=== PATIENT | male | born 1975 | race African-American/Black ===

== ENCOUNTER 2017-07-25 14:16 | Inpatient (IN) | payer MEDICAID ==
[~2017-07-25] VITALS: Ht 182.9 cm; Wt 188.9 kg
[~2017-07-25 14:16] MED LIST: AMLO5TAB16 PO; CYCL-1 PO; EMOL200L TP; HYDR-569 PO; INSU100V36 SQ; INSU100V9 SQ; LACT1CAP26 PO; LEVO500T89 PO; LISI-600 PO; METF500T PO; NITR0.4T51 SL; OMEP20TA23 PO; SIMV10TA2 PO; levoFLOXACIN-Levaquin 750MG/D5 150 ML IV ONE
[2017-07-25 15:04] LABS: BASOPHILS % (AUTO) 0.3 % (0-1); EOSINOPHILS # (AUTO) 0.3 X10'3 (0-0.9); EOSINOPHILS % (AUTO) 1.7 % (0-6); HEMATOCRIT 37.2 % (42.0-52.0); HEMOGLOBIN 11.9 g/dl (14.0-17.9); LYMPHOCYTES # (AUTO) 1.9 X10'3 (1.1-4.8); LYMPHOCYTES % (AUTO) 12.9 % (21-51); MEAN CORPUSCULAR HEMOGLOBIN 25.6 PG (27.0-31.0); MONOCYTES # (AUTO) 0.4 X10'3 (0-0.9); MONOCYTES % (AUTO) 2.4 % (2-12); NEUTROPHILS # (AUTO) 12.2 X10'3 (1.8-7.7); NEUTROPHILS % (AUTO) 82.7 % (42-75); PLATELET COUNT 300 X10'3 (140-440); RED BLOOD COUNT 4.65 X10'6 (4.70-6.10); RED CELL DISTRIBUTION WIDTH 19.2 % (11.5-14.5); WHITE BLOOD COUNT 14.8 X10'3 (4.5-11.0)
[2017-07-25 15:20] LABS: PARTIAL THROMBOPLASTIN TIME 32 SECONDS (22-32)
[2017-07-25 15:21] LABS: ALANINE AMINOTRANSFERASE 31 U/L (12-78); ALBUMIN 3.7 G/DL (3.4-5.0); ALBUMIN/GLOBULIN RATIO 0.7 (1.1-1.5); ALKALINE PHOSPHATASE 94 IU/L (46-116); ANION GAP 12 (8-16); ASPARTATE AMINO TRANSFERASE 14 U/L (10-37); BILIRUBIN,TOTAL 0.6 MG/DL (0.1-1.0); BLOOD UREA NITROGEN 20 MG/DL (7-18); BUN/CREATININE RATIO 13.5 (5.4-32.0); CHLORIDE 99 MMOL/L (99-107); CREATININE 1.48 MG/DL (0.60-1.10); GLUCOSE 186 MG/DL (70-104); POTASSIUM 3.9 MMOL/L (3.5-5.1); SODIUM 141 MMOL/L (135-145); TOTAL CARBON DIOXIDE 29.6 MMOL/L (24-32); TOTAL PROTEIN 9.2 G/DL (6.4-8.2); eGFR 63 ML/MIN
[2017-07-25] MEDS ORDERED: normal saline 1000ML IV soln IVB ONE (15:55)
[2017-07-25] MEDS ORDERED: HYDROcodone/acetaminophen 10/325mg tab PO ONE (16:05)
[2017-07-25] MEDS ORDERED: proCHLORperazine 10 MG/2 ml inj IV ONE (16:05)
[2017-07-25] MEDS ORDERED: levoFLOXACIN-Levaquin 750MG/D5 150 ML IV ONE (16:10)
[2017-07-25 16:23] LABS: MAGNESIUM 0.9 MG/DL (1.5-2.4)
[2017-07-25] MEDS ORDERED: mag hydrox/Alum hydrox/simeth 30ml oral suspension PO PRN (17:10)
[2017-07-25] MEDS ORDERED: bisacodyl 10mg suppository rectal RC PRN (17:10)
[2017-07-25] MEDS ORDERED: magnesium 4gm in 100ml NS 100 ML IV PRN (17:10)
[2017-07-25] MEDS ORDERED: HYDROmorphone inj. 0.5 MG/0.5 ML DISP.SYRIN IV PRN ×2 (17:10)
[2017-07-25] MEDS ORDERED: magnesium Cl slow-release 64mg tablet PO PRN (17:10)
[2017-07-25] MEDS ORDERED: ondansetron/PF 4mg/2ml inj IV PRN (17:10)
[2017-07-25] MEDS ORDERED: magnesium hydroxide 30ml (MOM) UD suspension PO PRN (17:10)
[2017-07-25] MEDS ORDERED: HYDROcodone/acetaminophen 5mg/325mg tablet PO PRN (17:10)
[2017-07-25] MEDS ORDERED: acetaminophen 650mg rectal suppository RC PRN (17:10)
[2017-07-25] MEDS ORDERED: metoclopramide 5 mg/ml inj IV PRN (17:10)
[2017-07-25] MEDS ORDERED: diphenhydrAMINE 50 mg/ml inj IV PRN (17:10)
[2017-07-25] MEDS ORDERED: diphenhydrAMINE 25mg capsule PO PRN (17:10)
[2017-07-25] MEDS ORDERED: MESSAGE TO PHARMACY PO ONE (17:15)
[2017-07-25] MEDS ORDERED: dextrose 50%-water 50ml dispensing syringe IV PRN ×2 (17:15)
[2017-07-25] MEDS ORDERED: dextrose ORAL solution 15 GM/59 ML bottle PO PRN ×2 (17:15)
[2017-07-25] MEDS ORDERED: glucagon, human recombinant 1mg kit SUBCUT PRN (17:15)
[2017-07-25] MEDS ORDERED: cyclobenzaprine 10mg tablet PO PRN (17:35)
[2017-07-25 18:11] LABS: HEMOGLOBIN A1C 9.1 % (4.5-6.2)
[2017-07-25] MEDS: furosemide 10 MG/1 ML 10ml inj IV SCH (18:29)
[2017-07-25 18:34] LABS: LIPASE 117 U/L (73-393); PHOSPHORUS 3.7 MG/DL (2.3-4.5)
[2017-07-25] MEDS ORDERED: HYDR-3973 PO (18:51)
[2017-07-25] MEDS ORDERED: HYDR25TA4 PO (18:51)
[2017-07-25] MEDS ORDERED: LANS30CA56 PO (18:51)
[2017-07-25] MEDS ORDERED: vancomycin inj 1,000 MG in normal saline 250ml IV soln 250 ML IV SCH (20:00)
[2017-07-25] MEDS ORDERED: piperacillin/tazo 3.375gm/50ml 50 ML IV SCH (20:00)
[2017-07-25] MEDS: docusate sod 100mg capsule PO SCH (20:00)
[2017-07-25 20:15] VITALS: BP 130/77
[2017-07-25] MEDS: hydrALAZINE 20mg/ml inj. IV SCH (20:15)
[2017-07-25] MEDS: HYDROcodone/acetaminophen 10/325mg tab PO PRN (20:47)
[2017-07-25] MEDS: magnesium 2GM in 50ml NS 50 ML IV PRN ×2 (20:50→23:19)
[2017-07-25] MEDS ORDERED: temazepam 15mg capsule PO PRN (21:00)
[2017-07-25] MEDS ORDERED: Neutra Phos packet PO ONE (21:15)
[2017-07-25] MEDS: atorvastatin 10mg tablet PO SCH (21:36)
[2017-07-25] MEDS: amLODIPine 5mg tablet PO SCH (21:37)
[2017-07-25] MEDS: proCHLORperazine 10 MG/2 ml inj IV PRN (21:39)
[2017-07-25] MEDS: enoxaparin 30mg/0.3ml syringe SQ SCH (21:46)
[2017-07-25] MEDS: insulin glargine (Lantus) pen - multi-dose SQ SCH (21:57)
[2017-07-25] MEDS: piperacillin/tazo 3.375gm/50ml 50 ML IV SCH (22:19)
[2017-07-26 00:35] VITALS: BP 127/59
[2017-07-26] MEDS: hydrALAZINE 20mg/ml inj. IV SCH ×2 (02:00→08:00)
[2017-07-26 02:45] VITALS: BP 147/79
[2017-07-26 03:26] LABS: CLARITY,URINE SLIGHTLY CLOUDY (Clear); COLOR,URINE AMBER (Yellow); GLUCOSE, URINE NEGATIVE (Neg); KETONES,URINE NEGATIVE (Neg); LEUKOCYTE ESTERASE ,URINE NEGATIVE (Neg); NITRITES, URINE NEGATIVE (Neg); OCCULT BLOOD,URINE TRACE-INTACT (Neg); PROTEIN,URINE 100 mg/dl (Neg); UROBILINOGEN,URINE 0.2 E.U/dL (0.2-1.0)
[2017-07-26 03:28] LABS: URINE AMPHETAMINE SCREEN NEGATIVE (Neg); URINE BARBITUATE SCREEN NEGATIVE (Neg); URINE BENZODIAZEPINES SCREEN NEGATIVE (Neg); URINE CANNABINOID SCREEN POSITIVE (Neg); URINE COCAINE SCREEN NEGATIVE (Neg); URINE METHADONE SCREEN NEGATIVE (Neg); URINE OPIATE SCREEN POSITIVE (Neg); URINE PHENCYCLIDINE SCREEN NEGATIVE (Neg)
[2017-07-26 03:30] LABS: UA COLLECTION TYPE CLN CATCH MIDSTREAM
[2017-07-26 03:39] LABS: AMORPHOUS URATES 1+; BACTERIA,URINE NONE SEEN /HPF (Neg); MUCUS STRANDS FEW /LPF (Neg); RBC,URINE 0-2 /HPF (0-2); SQUAMOUS EPITHELIAL CELL,UR NONE SEEN /LPF (FEW); WBC,URINE 0-4 /HPF (0-4)
[2017-07-26 03:40] LABS: FINE GRANULAR CAST 0-3 /LPF (NEGATIVE); HYALINE CASTS 0-3 /LPF (NEGATIVE)
[2017-07-26] MEDS: HYDROcodone/acetaminophen 10/325mg tab PO PRN ×2 (04:15→17:01)
[2017-07-26 05:08] LABS: BASOPHILS % (AUTO) 0 % (0-1); EOSINOPHILS % (AUTO) 0 % (0-6); HEMATOCRIT 31.6 % (42.0-52.0); HEMOGLOBIN 10.3 g/dl (14.0-17.9); LYMPHOCYTES # (AUTO) 0.2 X10'3 (1.1-4.8); LYMPHOCYTES % (AUTO) 1.4 % (21-51); MEAN CORPUSCULAR HEMOGLOBIN 25.8 PG (27.0-31.0); MEAN CORPUSCULAR HGB CONC 32.5 % (33.0-36.5); MEAN CORPUSCULAR VOLUME 79.4 FL (78-98); MONOCYTES # (AUTO) 0.3 X10'3 (0-0.9); MONOCYTES % (AUTO) 1.8 % (2-12); NEUTROPHILS # (AUTO) 13.6 X10'3 (1.8-7.7); NEUTROPHILS % (AUTO) 96.8 % (42-75); PLATELET COUNT 232 X10'3 (140-440); RED BLOOD COUNT 3.98 X10'6 (4.70-6.10); RED CELL DISTRIBUTION WIDTH 19.1 % (11.5-14.5)
[2017-07-26 05:45] LABS: ALANINE AMINOTRANSFERASE 57 U/L (12-78); ALBUMIN 2.9 G/DL (3.4-5.0); ALBUMIN/GLOBULIN RATIO 0.6 (1.1-1.5); ALKALINE PHOSPHATASE 101 IU/L (46-116); ANION GAP 12 (8-16); ASPARTATE AMINO TRANSFERASE 48 U/L (10-37); BILIRUBIN,TOTAL 1.5 MG/DL (0.1-1.0); BLOOD UREA NITROGEN 29 MG/DL (7-18); BUN/CREATININE RATIO 11.1 (5.4-32.0); CHLORIDE 96 MMOL/L (99-107); CHOL/HDL RATIO 1.5 (0.00-4.99); CHOLESTEROL 61 MG/DL (0-200); CREATININE 2.62 MG/DL (0.60-1.10); GLUCOSE 289 MG/DL (70-104); HDL CHOLESTEROL 42 MG/DL (35-60); LDL CHOLESTEROL 14 MG/DL (50-100); POTASSIUM 4.3 MMOL/L (3.5-5.1); SODIUM 135 MMOL/L (135-145); TOTAL CARBON DIOXIDE 26.7 MMOL/L (24-32); TRIGLYCERIDES 76 MG/DL (20-135); eGFR 33 ML/MIN
[2017-07-26] MEDS: piperacillin/tazo 3.375gm/50ml 50 ML IV SCH (05:57)
[2017-07-26 06:58] VITALS: BP 111/68
[2017-07-26 07:42] LABS: TOTAL CELLS COUNTED 100
[2017-07-26 07:44] LABS: ANISOCYTOSIS 2+; HYPOCHROMASIA 1+; MICROCYTOSIS 1+; PLATELET ESTIMATE NORMAL; POLYCHROMASIA 1+; TOXIC GRANULATION 1+
[2017-07-26] MEDS: docusate sod 100mg capsule PO SCH ×2 (08:00→19:32)
[2017-07-26] MEDS: furosemide 10 MG/1 ML 10ml inj IV SCH (08:00)
[2017-07-26] MEDS: proCHLORperazine 10 MG/2 ml inj IV PRN ×2 (08:47→23:23)
[2017-07-26] MEDS: insulin Lispro (HumaLOG) vial - multi-dose SQ SCH ×3 (10:07→19:15)
[2017-07-26] MEDS: amLODIPine 5mg tablet PO SCH ×2 (10:09→19:31)
[2017-07-26] MEDS: pantoprazole 40mg Tablet.DR PO SCH (10:11)
[2017-07-26] MEDS: lisinopril 20mg tablet PO SCH (10:11)
[2017-07-26] MEDS: enoxaparin 30mg/0.3ml syringe SQ SCH (10:12)
[2017-07-26] MEDS ORDERED: normal saline 1000ml 1,000 ML IV SCH (10:20)
[2017-07-26] MEDS: sodium chloride 0.45% 1,000 ML IV SCH (11:16)
[2017-07-26] MEDS: cefTRIAXone 1g/NS 100ml IVPB 100 ML IV SCH (11:16)
[2017-07-26 12:08] LABS: C DIFF ANTIGEN NEGATIVE (NEGATIVE); C DIFF SPECIMEN=DIARRHEA? ACCEPTABLE; C DIFFICILE TOXINS A&B NEGATIVE (Neg)
[2017-07-26] MEDS: acetaminophen 325mg tablet PO PRN ×3 (12:15→23:21)
[2017-07-26 12:19] VITALS: BP 139/67
[2017-07-26] MEDS ORDERED: acetaminophen 325mg tablet PO PRN (16:45)
[2017-07-26] MEDS: metroNIDAZOLE-Flagyl 500mg/NS 100 ML IV SCH ×2 (16:59→23:21)
[2017-07-26] MEDS: lactobacillus rhamnosus 10,000 MMU CELLS/CAPSULE PO SCH (19:30)
[2017-07-26] MEDS: heparin, porcine 5000 units/ml vial SQ SCH (19:31)
[2017-07-26 20:00] VITALS: BP 138/77
[2017-07-26] MEDS: atorvastatin 10mg tablet PO SCH (21:33)
[2017-07-26] MEDS: insulin glargine (Lantus) pen - multi-dose SQ SCH (21:36)
[2017-07-27] VITALS: BP 138/77
[2017-07-27 05:01] VITALS: BP 113/78
[2017-07-27] MEDS: HYDROcodone/acetaminophen 10/325mg tab PO PRN ×3 (05:12→20:23)
[2017-07-27] MEDS: sodium chloride 0.45% 1,000 ML IV SCH ×2 (05:13→11:30)
[2017-07-27 05:35] LABS: BASOPHILS % (AUTO) 0 % (0-1); EOSINOPHILS % (AUTO) 0 % (0-6); HEMATOCRIT 28.8 % (42.0-52.0); HEMOGLOBIN 9.5 g/dl (14.0-17.9); LYMPHOCYTES # (AUTO) 0.6 X10'3 (1.1-4.8); LYMPHOCYTES % (AUTO) 5.5 % (21-51); MEAN CORPUSCULAR HEMOGLOBIN 25.9 PG (27.0-31.0); MEAN CORPUSCULAR HGB CONC 32.9 % (33.0-36.5); MEAN CORPUSCULAR VOLUME 78.7 FL (78-98); MEAN PLATELET VOLUME 9.6 FL (7.4-10.4); MONOCYTES # (AUTO) 0.3 X10'3 (0-0.9); MONOCYTES % (AUTO) 3.1 % (2-12); NEUTROPHILS # (AUTO) 10.3 X10'3 (1.8-7.7); NEUTROPHILS % (AUTO) 91.4 % (42-75); PLATELET COUNT 188 X10'3 (140-440); RED BLOOD COUNT 3.66 X10'6 (4.70-6.10); RED CELL DISTRIBUTION WIDTH 19.6 % (11.5-14.5); WHITE BLOOD COUNT 11.2 X10'3 (4.5-11.0)
[2017-07-27 05:57] LABS: ALANINE AMINOTRANSFERASE 45 U/L (12-78); ALBUMIN 2.5 G/DL (3.4-5.0); ALBUMIN/GLOBULIN RATIO 0.5 (1.1-1.5); ALKALINE PHOSPHATASE 88 IU/L (46-116); ANION GAP 10 (8-16); ASPARTATE AMINO TRANSFERASE 23 U/L (10-37); BILIRUBIN,TOTAL 0.9 MG/DL (0.1-1.0); BLOOD UREA NITROGEN 28 MG/DL (7-18); BUN/CREATININE RATIO 15.4 (5.4-32.0); CALCIUM 8.8 MG/DL (8.5-10.1); CHLORIDE 98 MMOL/L (99-107); CREATININE 1.82 MG/DL (0.60-1.10); GLUCOSE 154 MG/DL (70-104); MAGNESIUM 2.1 MG/DL (1.5-2.4); POTASSIUM 3.5 MMOL/L (3.5-5.1); SODIUM 138 MMOL/L (135-145); TOTAL CARBON DIOXIDE 30.2 MMOL/L (24-32); TOTAL PROTEIN 7.6 G/DL (6.4-8.2); eGFR 50 ML/MIN
[2017-07-27 07:29] VITALS: BP 129/68
[2017-07-27 07:50] LABS: ANISOCYTOSIS 2+; HYPOCHROMASIA 1+; MICROCYTOSIS 1+; PLATELET ESTIMATE NORMAL; POLYCHROMASIA 1+; TOTAL CELLS COUNTED 100
[2017-07-27 07:52] LABS: TARGET CELLS FEW
[2017-07-27] MEDS: cefTRIAXone 1g/NS 100ml IVPB 100 ML IV SCH (08:00)
[2017-07-27] MEDS: docusate sod 100mg capsule PO SCH ×2 (08:00→20:00)
[2017-07-27] MEDS: metroNIDAZOLE-Flagyl 500mg/NS 100 ML IV SCH (08:58)
[2017-07-27] MEDS: lisinopril 20mg tablet PO SCH (08:58)
[2017-07-27] MEDS: pantoprazole 40mg Tablet.DR PO SCH (08:58)
[2017-07-27] MEDS: amLODIPine 5mg tablet PO SCH ×2 (08:58→20:23)
[2017-07-27] MEDS: lactobacillus rhamnosus 10,000 MMU CELLS/CAPSULE PO SCH ×2 (08:59→20:23)
[2017-07-27] MEDS: heparin, porcine 5000 units/ml vial SQ SCH ×2 (09:01→20:23)
[2017-07-27 11:25] VITALS: BP 168/94
[2017-07-27] MEDS ORDERED: levoFLOXACIN-Levaquin 500mg/D5 100 ML IV SCH (12:55)
[2017-07-27] MEDS: insulin Lispro (HumaLOG) vial - multi-dose SQ SCH ×2 (13:47→19:24)
[2017-07-27] MEDS: acetaminophen 325mg tablet PO PRN (19:15)
[2017-07-27 20:00] VITALS: BP 138/69
[2017-07-27] MEDS: atorvastatin 10mg tablet PO SCH (20:22)
[2017-07-27] MEDS: insulin glargine (Lantus) pen - multi-dose SQ SCH (21:10)
[2017-07-28] VITALS: BP 121/72
[2017-07-28] MEDS: sodium chloride 0.45% 1,000 ML IV SCH ×2 (02:09)
[2017-07-28 05:42] LABS: BASOPHILS % (AUTO) 0 % (0-1); EOSINOPHILS % (AUTO) 0.4 % (0-6); HEMATOCRIT 26.3 % (42.0-52.0); HEMOGLOBIN 8.4 g/dl (14.0-17.9); LYMPHOCYTES # (AUTO) 0.5 X10'3 (1.1-4.8); LYMPHOCYTES % (AUTO) 4.8 % (21-51); MEAN CORPUSCULAR HEMOGLOBIN 25.7 PG (27.0-31.0); MEAN CORPUSCULAR HGB CONC 31.9 % (33.0-36.5); MEAN CORPUSCULAR VOLUME 80.4 FL (78-98); MEAN PLATELET VOLUME 9.2 FL (7.4-10.4); MONOCYTES # (AUTO) 0.6 X10'3 (0-0.9); MONOCYTES % (AUTO) 5.5 % (2-12); NEUTROPHILS % (AUTO) 89.3 % (42-75); PLATELET COUNT 176 X10'3 (140-440); RED BLOOD COUNT 3.27 X10'6 (4.70-6.10); RED CELL DISTRIBUTION WIDTH 19.1 % (11.5-14.5); WHITE BLOOD COUNT 10.1 X10'3 (4.5-11.0)
[2017-07-28 05:52] LABS: ALANINE AMINOTRANSFERASE 34 U/L (12-78); ALBUMIN 2.3 G/DL (3.4-5.0); ALBUMIN/GLOBULIN RATIO 0.5 (1.1-1.5); ALKALINE PHOSPHATASE 100 IU/L (46-116); ANION GAP 6 (8-16); ASPARTATE AMINO TRANSFERASE 21 U/L (10-37); BILIRUBIN,TOTAL 0.7 MG/DL (0.1-1.0); BLOOD UREA NITROGEN 23 MG/DL (7-18); BUN/CREATININE RATIO 14.3 (5.4-32.0); CALCIUM 8.3 MG/DL (8.5-10.1); CHLORIDE 101 MMOL/L (99-107); CREATININE 1.61 MG/DL (0.60-1.10); GLUCOSE 126 MG/DL (70-104); MAGNESIUM 2.1 MG/DL (1.5-2.4); POTASSIUM 3.2 MMOL/L (3.5-5.1); SODIUM 138 MMOL/L (135-145); TOTAL CARBON DIOXIDE 30.8 MMOL/L (24-32); TOTAL PROTEIN 7.3 G/DL (6.4-8.2); eGFR 57 ML/MIN
[2017-07-28 07:54] VITALS: BP 148/94
[2017-07-28] MEDS: docusate sod 100mg capsule PO SCH ×2 (08:00→20:00)
[2017-07-28] MEDS: insulin Lispro (HumaLOG) vial - multi-dose SQ SCH ×3 (09:35→18:56)
[2017-07-28] MEDS: amLODIPine 5mg tablet PO SCH ×2 (09:37→20:22)
[2017-07-28] MEDS: lactobacillus rhamnosus 10,000 MMU CELLS/CAPSULE PO SCH ×2 (09:37→20:22)
[2017-07-28] MEDS: lisinopril 20mg tablet PO SCH (09:38)
[2017-07-28] MEDS: HYDROcodone/acetaminophen 10/325mg tab PO PRN ×3 (09:38→20:22)
[2017-07-28] MEDS: pantoprazole 40mg Tablet.DR PO SCH (09:38)
[2017-07-28] MEDS: heparin, porcine 5000 units/ml vial SQ SCH ×2 (09:40→20:22)
[2017-07-28] MEDS: levoFLOXACIN 500mg tablet PO SCH (11:02)
[2017-07-28 12:07] VITALS: BP 164/96
[2017-07-28] MEDS ORDERED: potassium Cl 40MEQ/NS 500ml 500 ML IV PRN ×2 (12:35)
[2017-07-28] MEDS ORDERED: potassium Cl 20 mEq SR tablet PO PRN ×2 (12:35→12:45)
[2017-07-28] MEDS: K, MAG and/or Phos replacement - Verify level? MC SCH (12:41)
[2017-07-28] MEDS: clindamycin 600mg/D5W 50ml 50 ML IV SCH ×2 (14:49→20:23)
[2017-07-28] MEDS: potassium Cl 20 mEq SR tablet PO PRN ×2 (16:18→20:29)
[2017-07-28 20:00] VITALS: BP 149/88
[2017-07-28] MEDS: atorvastatin 10mg tablet PO SCH (20:22)
[2017-07-28] MEDS: insulin glargine (Lantus) pen - multi-dose SQ SCH (21:12)
[2017-07-28] MEDS ORDERED: VANCOMYCIN LEVEL IV ONE (21:30)
[2017-07-29] VITALS: BP 136/81
[2017-07-29] MEDS: potassium Cl 20 mEq SR tablet PO PRN (00:04)
[2017-07-29] MEDS: clindamycin 600mg/D5W 50ml 50 ML IV SCH ×2 (02:23→08:53)
[2017-07-29 05:33] LABS: BASOPHILS % (AUTO) 0 % (0-1); EOSINOPHILS # (AUTO) 0.2 X10'3 (0-0.9); EOSINOPHILS % (AUTO) 2.1 % (0-6); HEMATOCRIT 26.3 % (42.0-52.0); HEMOGLOBIN 8.4 g/dl (14.0-17.9); LYMPHOCYTES # (AUTO) 0.7 X10'3 (1.1-4.8); LYMPHOCYTES % (AUTO) 8.3 % (21-51); MEAN CORPUSCULAR HEMOGLOBIN 25.7 PG (27.0-31.0); MEAN CORPUSCULAR HGB CONC 32.1 % (33.0-36.5); MEAN PLATELET VOLUME 8.3 FL (7.4-10.4); MONOCYTES # (AUTO) 0.8 X10'3 (0-0.9); MONOCYTES % (AUTO) 8.6 % (2-12); NEUTROPHILS # (AUTO) 7.1 X10'3 (1.8-7.7); PLATELET COUNT 196 X10'3 (140-440); RED BLOOD COUNT 3.29 X10'6 (4.70-6.10); RED CELL DISTRIBUTION WIDTH 19.6 % (11.5-14.5); WHITE BLOOD COUNT 8.7 X10'3 (4.5-11.0)
[2017-07-29 05:55] LABS: ALANINE AMINOTRANSFERASE 30 U/L (12-78); ALBUMIN 2.2 G/DL (3.4-5.0); ALBUMIN/GLOBULIN RATIO 0.4 (1.1-1.5); ALKALINE PHOSPHATASE 90 IU/L (46-116); ANION GAP 7 (8-16); ASPARTATE AMINO TRANSFERASE 17 U/L (10-37); BILIRUBIN,TOTAL 0.5 MG/DL (0.1-1.0); BLOOD UREA NITROGEN 22 MG/DL (7-18); BUN/CREATININE RATIO 13.7 (5.4-32.0); CALCIUM 8.2 MG/DL (8.5-10.1); CHLORIDE 103 MMOL/L (99-107); CREATININE 1.61 MG/DL (0.60-1.10); GLUCOSE 195 MG/DL (70-104); MAGNESIUM 2.2 MG/DL (1.5-2.4); POTASSIUM 4.1 MMOL/L (3.5-5.1); SODIUM 140 MMOL/L (135-145); TOTAL CARBON DIOXIDE 30.4 MMOL/L (24-32); TOTAL PROTEIN 7.3 G/DL (6.4-8.2); eGFR 57 ML/MIN
[2017-07-29 07:00] VITALS: BP 129/81
[2017-07-29] MEDS: K, MAG and/or Phos replacement - Verify level? MC SCH (08:00)
[2017-07-29] MEDS: docusate sod 100mg capsule PO SCH (08:00)
[2017-07-29] MEDS: lactobacillus rhamnosus 10,000 MMU CELLS/CAPSULE PO SCH (08:00)
[2017-07-29] MEDS: amLODIPine 5mg tablet PO SCH (08:53)
[2017-07-29] MEDS: lisinopril 20mg tablet PO SCH (08:53)
[2017-07-29] MEDS: pantoprazole 40mg Tablet.DR PO SCH (08:53)
[2017-07-29] MEDS: heparin, porcine 5000 units/ml vial SQ SCH (08:54)
[2017-07-29] MEDS: HYDROcodone/acetaminophen 10/325mg tab PO PRN (08:55)
[2017-07-29] MEDS: insulin Lispro (HumaLOG) vial - multi-dose SQ SCH (09:09)
[2017-07-29] MEDS: levoFLOXACIN 500mg tablet PO SCH (11:00)
[2017-07-29] MEDS ORDERED: DOCU-28 PO (11:08)
[2017-07-29] MEDS ORDERED: LEVO500T89 PO (11:08)
[2017-07-29] MEDS ORDERED: CLIN-5 PO (11:08)
[2017-07-29 11:51] VITALS: BP 141/80
== END 2017-07-29 12:22 | disposition home or self-care (01) | DRG 720 ==
LOC: ER 14:16 → ED HOLD 17:10 → EDBEDREQ 19:12 → MED 3N 20:00
PROVIDERS: ADMIT Family Medicine; ATTEND Internal Medicine
DX: A41.9 Sepsis, unspecified organism (principal); N17.9 Acute kidney failure, unspecified; E11.65 Type 2 diabetes mellitus with hyperglycemia; Z68.43 Body mass index [BMI] 50.0-59.9, adult; I10 Essential (primary) hypertension; L03.116 Cellulitis of left lower limb; I89.0 Lymphedema, not elsewhere classified; E66.01 Morbid (severe) obesity due to excess calories; L89.892 Pressure ulcer of other site, stage 2; E83.42 Hypomagnesemia; I16.1 Hypertensive emergency; E83.39 Other disorders of phosphorus metabolism; E11.9 Type 2 diabetes mellitus without complications; M19.90 Unspecified osteoarthritis, unspecified site; M79.89 Other specified soft tissue disorders; E78.00 Pure hypercholesterolemia, unspecified; G47.30 Sleep apnea, unspecified; I25.10 Atherosclerotic heart disease of native coronary artery without angina pectoris; J45.909 Unspecified asthma, uncomplicated; K31.9 Disease of stomach and duodenum, unspecified; Z82.49 Family history of ischemic heart disease and other diseases of the circulatory system; Z83.3 Family history of diabetes mellitus; Z87.11 Personal history of peptic ulcer disease; Z88.6 Allergy status to analgesic agent; Z88.8 Allergy status to other drugs, medicaments and biological substances; Z79.899 Other long term (current) drug therapy; Z90.49 Acquired absence of other specified parts of digestive tract
CPT/HCPCS: 36415; 71045; 76881; 80053; 80061; 80305; 81001; 82948; 83036; 83605; 83690; 83735; 83880; 84100; 84145; 85025; 85610; 85730; 87040; 87070; 87324; 87449; 93005; 96365; 96375; 97116; 97161; 97530; 99285; A6223; A6446; J0696; J0780; J1644; J1650; J1815; J1940; J1956; J2405; J2543; J3370; J3475; J3490; J7030

== ENCOUNTER 2018-10-26 12:04 | Emergency (ER) | payer MEDICAID ==
[~2018-10-26] VITALS: Ht 182.9 cm; Wt 180.9 kg
[~2018-10-26 12:04] MED LIST changes: +CLIN-5 PO; -CYCL-1 PO; +DOCU-28 PO; +HYDR-3973 PO; -HYDR-569 PO; +HYDR25TA4 PO; -LACT1CAP26 PO; +LANS30CA56 PO; -METF500T PO; -OMEP20TA23 PO; -levoFLOXACIN-Levaquin 750MG/D5 150 ML IV ONE
[2018-10-26 13:06] LABS: CLARITY,URINE CLEAR (Clear); COLOR,URINE YELLOW (Yellow); GLUCOSE, URINE NEGATIVE (Neg); KETONES,URINE NEGATIVE (Neg); LEUKOCYTE ESTERASE ,URINE NEGATIVE (Neg); NITRITES, URINE NEGATIVE (Neg); OCCULT BLOOD,URINE TRACE-LYSED (Neg); PH,URINE 7.5 (4.8-8.0); PROTEIN,URINE 100 mg/dl (Neg); UROBILINOGEN,URINE 0.2 E.U/dL (0.2-1.0)
[2018-10-26 13:07] LABS: UA COLLECTION TYPE CLN CATCH MIDSTREAM
[2018-10-26 13:11] LABS: MUCUS STRANDS NONE SEEN /LPF (Neg); SQUAMOUS EPITHELIAL CELL,UR NONE SEEN /LPF (FEW)
[2018-10-26 13:12] LABS: BACTERIA,URINE NONE SEEN /HPF (Neg); WBC,URINE 0-4 /HPF (0-4)
[2018-10-26 13:21] LABS: BASOPHILS % (AUTO) 0.4 % (0-1); EOSINOPHILS # (AUTO) 0.2 X10'3 (0-0.9); EOSINOPHILS % (AUTO) 2.1 % (0-6); HEMATOCRIT 36.5 % (42.0-52.0); LYMPHOCYTES # (AUTO) 0.6 X10'3 (1.1-4.8); LYMPHOCYTES % (AUTO) 8.3 % (21-51); MEAN CORPUSCULAR HEMOGLOBIN 26.5 PG (27.0-31.0); MEAN CORPUSCULAR HGB CONC 32.9 g/dL (33.0-36.5); MEAN CORPUSCULAR VOLUME 80.5 FL (78-98); MEAN PLATELET VOLUME 8.1 FL (7.4-10.4); MONOCYTES # (AUTO) 0.4 X10'3 (0-0.9); MONOCYTES % (AUTO) 5.4 % (2-12); NEUTROPHILS # (AUTO) 6.2 X10'3 (1.8-7.7); NEUTROPHILS % (AUTO) 83.8 % (42-75); PLATELET COUNT 235 X10'3 (140-440); RED BLOOD COUNT 4.54 X10'6 (4.70-6.10); RED CELL DISTRIBUTION WIDTH 17.9 % (11.5-14.5); WHITE BLOOD COUNT 7.3 X10'3 (4.5-11.0)
[2018-10-26 13:36] LABS: ALANINE AMINOTRANSFERASE 25 U/L (12-78); ALBUMIN 3.7 G/DL (3.4-5.0); ALBUMIN/GLOBULIN RATIO 0.7 (1.1-1.5); ALKALINE PHOSPHATASE 79 IU/L (46-116); AMYLASE 32 U/L (25-115); ANION GAP 7 (8-16); ASPARTATE AMINO TRANSFERASE 11 U/L (10-37); BILIRUBIN,TOTAL 0.5 MG/DL (0.1-1.0); BLOOD UREA NITROGEN 13 MG/DL (7-18); BUN/CREATININE RATIO 9.2 (5.4-32.0); CALCIUM 9.5 MG/DL (8.5-10.1); CHLORIDE 102 MMOL/L (99-107); CREATININE 1.42 MG/DL (0.60-1.10); GLUCOSE 128 MG/DL (70-104); LIPASE 181 U/L (73-393); POTASSIUM 3.6 MMOL/L (3.5-5.1); SODIUM 138 MMOL/L (135-145); TOTAL CARBON DIOXIDE 28.6 MMOL/L (24-32); TOTAL PROTEIN 8.8 G/DL (6.4-8.2); eGFR 66 ML/MIN
[2018-10-26] MEDS ORDERED: levoFLOXACIN-Levaquin 750MG/D5 150 ML IV ONE (15:00)
[2018-10-26] MEDS ORDERED: acetaminophen 325mg tablet PO STA (15:00)
[2018-10-26] MEDS ORDERED: CefTRIAXone 2gm/D5W 50ml 50 ML IV ONE (15:00)
[2018-10-26] MEDS ORDERED: HYDROcodone/acetaminophen 10/325mg tab PO ONE (15:10)
--- NOTE | 2018-10-26 15:38 | NUR ---
pt medicated as prescribed by ,rocephin infusing at 100ml/hr.pt pain med given,denies any concern at this time.
[2018-10-26] MEDS ORDERED: proCHLORperazine 10 MG/2 ml inj IV ONE (16:00)
[2018-10-26] MEDS ORDERED: DILT120C51 PO (17:08)
[2018-10-26] MEDS ORDERED: FERR325T32 PO (17:08)
[2018-10-26] MEDS ORDERED: MULT1TAB74 PO (17:08)
[2018-10-26] MEDS ORDERED: INSU100I31 SQ (17:08)
[2018-10-26] MEDS ORDERED: LIRA0.6P2 SQ (17:08)
[2018-10-26] MEDS ORDERED: LISI40TA4 PO (17:08)
[2018-10-26] MEDS ORDERED: METF500T7 PO (17:08)
[2018-10-26] MEDS ORDERED: SIMV10TA6 PO (17:08)
[2018-10-26] MEDS ORDERED: LEVO750T21 PO (17:10)
[2018-10-26 17:28] VITALS: BP 170/96
== END 2018-10-26 17:56 | disposition home or self-care (01) ==
LOC: ER 12:05
DX: L03.116 Cellulitis of left lower limb (principal); I25.10 Atherosclerotic heart disease of native coronary artery without angina pectoris; E78.00 Pure hypercholesterolemia, unspecified; I10 Essential (primary) hypertension; J45.909 Unspecified asthma, uncomplicated; E11.9 Type 2 diabetes mellitus without complications; M19.90 Unspecified osteoarthritis, unspecified site; Z87.11 Personal history of peptic ulcer disease; Z90.49 Acquired absence of other specified parts of digestive tract; Z98.890 Other specified postprocedural states; Z88.8 Allergy status to other drugs, medicaments and biological substances; Z79.899 Other long term (current) drug therapy; Z79.4 Long term (current) use of insulin
CPT/HCPCS: 36415; 71045; 74176; 80053; 81001; 82150; 83605; 83690; 84145; 85025; 85610; 87040; 96365; 96368; 96375; 99284; J0696; J0780

== ENCOUNTER 2019-07-29 18:30 | Emergency (ER) | payer MEDICAID ==
[~2019-07-29] VITALS: Ht 182.9 cm; Wt 179.5 kg
[~2019-07-29 18:30] MED LIST changes: -AMLO5TAB16 PO; -CLIN-5 PO; +DILT120C51 PO; -DOCU-28 PO; -EMOL200L TP; +FERR325T32 PO; +INSU100I31 SQ; -INSU100V36 SQ; -INSU100V9 SQ; -LEVO500T89 PO; +LIRA0.6P2 SQ; -LISI-600 PO; +LISI40TA4 PO; +METF500T20 PO; +MULT1TAB74 PO; -NITR0.4T51 SL; -SIMV10TA2 PO; +SIMV10TA98 PO
[2019-07-29 19:19] VITALS: BP 188/113
[2019-07-29] MEDS ORDERED: TAM75C PO (19:45)
[2019-07-29] MEDS ORDERED: BENZ-16 PO (20:08)
[2019-07-29] MEDS ORDERED: ALBU18HF2 INH (20:08)
== END 2019-07-29 20:28 | disposition home or self-care (01) ==
LOC: ER 18:31
DX: R50.9 Fever, unspecified (principal); R05 Cough; R09.3 Abnormal sputum; I25.10 Atherosclerotic heart disease of native coronary artery without angina pectoris; E78.00 Pure hypercholesterolemia, unspecified; I10 Essential (primary) hypertension; J45.909 Unspecified asthma, uncomplicated; G47.30 Sleep apnea, unspecified; E11.9 Type 2 diabetes mellitus without complications; M19.90 Unspecified osteoarthritis, unspecified site; Z20.828 Contact with and (suspected) exposure to other viral communicable diseases; Z98.890 Other specified postprocedural states; Z88.8 Allergy status to other drugs, medicaments and biological substances; Z88.5 Allergy status to narcotic agent; Z88.6 Allergy status to analgesic agent; Z79.84 Long term (current) use of oral hypoglycemic drugs; Z79.899 Other long term (current) drug therapy
CPT/HCPCS: 99284

== ENCOUNTER 2021-06-20 17:04 | Inpatient (IN) | payer MEDICAID ==
[~2021-06-20] VITALS: Ht 182.9 cm; Wt 178.0 kg
[~2021-06-20 17:04] MED LIST changes: +ALBU18HF2 INH; +LISI40TA13 PO; -LISI40TA4 PO; +METF-900 PO; -METF500T20 PO; +MULT-620 PO; -MULT1TAB74 PO
[2021-06-20] MEDS ORDERED: acetaminophen 325mg tablet PO STA (17:14)
[2021-06-20] MEDS ORDERED: VANCOMYCIN 1GM/200ML IVPB 250 ML IV ONE (17:15)
[2021-06-20] MEDS ORDERED: piperacillin/tazo 3.375gm/50ml 50 ML IV ONE (17:15)
[2021-06-20] MEDS ORDERED: normal saline 1000ML IV soln IV ONE (17:15)
[2021-06-20] MEDS ORDERED: VANCOMYCIN 1GM/200ML IVPB 200 ML IV ONE (17:40)
[2021-06-20 17:44] LABS: BASOPHILS % (AUTO) 0.4 % (0-1); EOSINOPHILS % (AUTO) 0.4 % (0-6); HEMATOCRIT 32.5 % (42.0-52.0); HEMOGLOBIN 10.6 g/dl (14.0-17.9); LYMPHOCYTES # (AUTO) 0.4 X10'3 (1.1-4.8); MEAN CORPUSCULAR HEMOGLOBIN 26.6 PG (27.0-31.0); MEAN CORPUSCULAR HGB CONC 32.6 g/dL (33.0-36.5); MEAN CORPUSCULAR VOLUME 81.8 FL (78-98); MEAN PLATELET VOLUME 7.9 FL (7.4-10.4); MONOCYTES # (AUTO) 0.4 X10'3 (0-0.9); MONOCYTES % (AUTO) 5.6 % (2-12); NEUTROPHILS # (AUTO) 6.6 X10'3 (1.8-7.7); NEUTROPHILS % (AUTO) 88.6 % (42-75); PLATELET COUNT 220 X10'3 (140-440); RED BLOOD COUNT 3.98 X10'6 (4.70-6.10); RED CELL DISTRIBUTION WIDTH 18.2 % (11.5-14.5); WHITE BLOOD COUNT 7.5 X10'3 (4.5-11.0)
[2021-06-20 18:04] LABS: ALANINE AMINOTRANSFERASE 32 U/L (12-78); ALBUMIN 3.3 G/DL (3.4-5.0); ALBUMIN/GLOBULIN RATIO 0.6 (1.1-1.5); ALKALINE PHOSPHATASE 82 IU/L (46-116); ANION GAP 6 (8-16); ASPARTATE AMINO TRANSFERASE 19 U/L (10-37); BILIRUBIN,TOTAL 0.7 MG/DL (0.1-1.0); BLOOD UREA NITROGEN 25 MG/DL (7-18); BUN/CREATININE RATIO 10.5 (5.4-32.0); CALCIUM 9.2 MG/DL (8.5-10.1); CHLORIDE 101 MMOL/L (99-107); CREATININE 2.39 MG/DL (0.60-1.10); GLUCOSE 177 MG/DL (70-104); POTASSIUM 3.3 MMOL/L (3.5-5.1); SODIUM 139 MMOL/L (135-145); TOTAL CARBON DIOXIDE 31.7 MMOL/L (24-32); TOTAL PROTEIN 8.6 G/DL (6.4-8.2); eGFR 36 ML/MIN
[2021-06-20 18:41] LABS: GLUCOSE, URINE 100 mg/dl (Neg); KETONES,URINE NEGATIVE (Neg); LEUKOCYTE ESTERASE ,URINE NEGATIVE (Neg); NITRITES, URINE NEGATIVE (Neg); OCCULT BLOOD,URINE MODERATE (Neg); PROTEIN,URINE >=300 mg/dl (Neg); URINE AMPHETAMINE SCREEN NEGATIVE (Neg); URINE BARBITUATE SCREEN NEGATIVE (Neg); URINE BENZODIAZEPINES SCREEN NEGATIVE (Neg); URINE CANNABINOID SCREEN POSITIVE (Neg); URINE COCAINE SCREEN NEGATIVE (Neg); URINE METHADONE SCREEN NEGATIVE (Neg); URINE OPIATE SCREEN NEGATIVE (Neg); URINE PHENCYCLIDINE SCREEN NEGATIVE (Neg); UROBILINOGEN,URINE 0.2 E.U/dL (0.2-1.0)
[2021-06-20 18:44] LABS: CLARITY,URINE SLIGHTLY CLOUDY (Clear); COLOR,URINE YELLOW (Yellow); UA COLLECTION TYPE CLN CATCH MIDSTREAM
[2021-06-20 18:47] LABS: BACTERIA,URINE FEW /HPF (Neg); MUCUS STRANDS FEW /LPF (Neg); SQUAMOUS EPITHELIAL CELL,UR FEW /LPF (FEW); TRANSITIONAL EPI CELLS,URINE FEW /HPF; WBC,URINE 0-4 /HPF (0-4)
[2021-06-20 18:49] LABS: COARSE GRANULAR CAST 0-3 /LPF (NEGATIVE); HYALINE CASTS 0-3 /LPF (NEGATIVE)
[2021-06-20] MEDS ORDERED: HYDROcodone/acetaminophen 10/325mg tab PO ONE (18:50)
[2021-06-20] MEDS ORDERED: DILT-36 PO (20:10)
[2021-06-20] MEDS ORDERED: LACT1TAB11 PO (20:10)
[2021-06-20] MEDS ORDERED: temazepam 15mg capsule PO PRN (21:00)
[2021-06-20] MEDS ORDERED: proCHLORperazine 10 MG/2 ml inj IV ONE (23:30)
[2021-06-20] MEDS ORDERED: furosemide 10 MG/1 ML 10ml inj IV STA (23:37)
[2021-06-20] MEDS ORDERED: niCARDipine-NS 40mg/200ml IVPB 200 ML IV SCH (23:40)
[2021-06-20] MEDS ORDERED: magnesium hydroxide 30ml (MOM) UD suspension PO PRN (23:50)
[2021-06-20] MEDS ORDERED: mag hydrox/Alum hydrox/simeth 30ml oral suspension PO PRN (23:50)
[2021-06-20] MEDS ORDERED: diphenhydrAMINE 50 mg/ml inj IV PRN (23:50)
[2021-06-20] MEDS ORDERED: acetaminophen 325mg tablet PO PRN ×2 (23:50)
[2021-06-20] MEDS ORDERED: diphenhydrAMINE 25mg capsule PO PRN (23:50)
[2021-06-20] MEDS ORDERED: bisacodyl 10mg suppository rectal RC PRN (23:50)
[2021-06-20] MEDS ORDERED: acetaminophen 650mg rectal suppository RC PRN (23:50)
[2021-06-20] MEDS ORDERED: dextrose 50%-water 50ml dispensing syringe IV PRN ×2 (23:55)
[2021-06-20] MEDS ORDERED: dextrose ORAL solution 15 GM/59 ML bottle PO PRN ×2 (23:55)
[2021-06-20] MEDS ORDERED: MESSAGE TO PHARMACY PO ONE (23:55)
[2021-06-20] MEDS ORDERED: glucagon, human recombinant 1mg kit SUBCUT PRN (23:55)
[2021-06-20] MEDS ORDERED: hydrALAZINE 20mg/ml inj. IV PRN (23:55)
[2021-06-21] VITALS (7 sets, daily range): BP systolic 138–203; BP diastolic 64–108
[2021-06-21] MEDS ORDERED: magnesium 4gm in 100ml NS 100 ML IV PRN
[2021-06-21] MEDS ORDERED: potassium CL 10mEq/100ml bag 100 ML IV PRN
[2021-06-21] MEDS ORDERED: magnesium 2GM in 50ml NS 50 ML IV PRN
[2021-06-21] MEDS ORDERED: potassium Cl 20 mEq SR tablet PO PRN
[2021-06-21] MEDS ORDERED: magnesium Cl slow-release 64mg tablet PO PRN
[2021-06-21 00:12] LABS: HEMOGLOBIN A1C 7.8 % (4.5-6.2)
[2021-06-21 00:20] LABS: MAGNESIUM 1.9 MG/DL (1.5-2.4); PHOSPHORUS 2.9 MG/DL (2.3-4.5)
[2021-06-21 00:33] LABS: APTT 33 SECONDS (22-32)
[2021-06-21] MEDS: piperacillin/tazo 4.5gm/100ml 100 ML IV SCH ×3 (02:00→20:52)
[2021-06-21 02:16] LABS: BASOPHILS % (AUTO) 0.3 % (0-1); EOSINOPHILS % (AUTO) 0.4 % (0-6); HEMATOCRIT 30.6 % (42.0-52.0); HEMOGLOBIN 10.1 g/dl (14.0-17.9); LYMPHOCYTES # (AUTO) 0.4 X10'3 (1.1-4.8); LYMPHOCYTES % (AUTO) 5.8 % (21-51); MEAN CORPUSCULAR HEMOGLOBIN 26.3 PG (27.0-31.0); MEAN CORPUSCULAR HGB CONC 32.9 g/dL (33.0-36.5); MEAN CORPUSCULAR VOLUME 80.2 FL (78-98); MONOCYTES # (AUTO) 0.5 X10'3 (0-0.9); MONOCYTES % (AUTO) 7.6 % (2-12); NEUTROPHILS # (AUTO) 5.6 X10'3 (1.8-7.7); NEUTROPHILS % (AUTO) 85.9 % (42-75); PLATELET COUNT 214 X10'3 (140-440); RED BLOOD COUNT 3.82 X10'6 (4.70-6.10); RED CELL DISTRIBUTION WIDTH 18.4 % (11.5-14.5); WHITE BLOOD COUNT 6.6 X10'3 (4.5-11.0)
[2021-06-21 02:32] LABS: ALANINE AMINOTRANSFERASE 32 U/L (12-78); ALBUMIN 3.1 G/DL (3.4-5.0); ALBUMIN/GLOBULIN RATIO 0.6 (1.1-1.5); ALKALINE PHOSPHATASE 79 IU/L (46-116); ANION GAP 11 (8-16); ASPARTATE AMINO TRANSFERASE 21 U/L (10-37); BILIRUBIN,TOTAL 0.8 MG/DL (0.1-1.0); BLOOD UREA NITROGEN 21 MG/DL (7-18); BUN/CREATININE RATIO 9.8 (5.4-32.0); CALCIUM 8.8 MG/DL (8.5-10.1); CHLORIDE 101 MMOL/L (99-107); CREATININE 2.15 MG/DL (0.60-1.10); GLUCOSE 148 MG/DL (70-104); POTASSIUM 3.1 MMOL/L (3.5-5.1); SODIUM 140 MMOL/L (135-145); TOTAL CARBON DIOXIDE 28.2 MMOL/L (24-32); eGFR 40 ML/MIN
[2021-06-21 02:44] LABS: CHOL/HDL RATIO 2.8 (0.00-4.99); CHOLESTEROL 119 MG/DL (0-200); HDL CHOLESTEROL 42 MG/DL (35-60); LDL CHOLESTEROL 61 MG/DL (50-100); MAGNESIUM 1.7 MG/DL (1.5-2.4); TRIGLYCERIDES 104 MG/DL (20-135)
[2021-06-21] MEDS: HYDROcodone/acetaminophen 10/325mg tab PO PRN ×3 (07:50→21:13)
[2021-06-21] MEDS: K and/or MAG REPLACEMENT MC SCH ×2 (08:00→20:00)
[2021-06-21] MEDS: docusate sod 100mg capsule PO SCH ×2 (08:00→20:52)
[2021-06-21] MEDS ORDERED: furosemide 10 MG/1 ML 10ml inj IV SCH ×2 (08:00→20:00)
--- NOTE | 2021-06-21 08:00 | NUR ---
Patient refused stool softener states " I had a BM today. aware.
--- NOTE | 2021-06-21 08:00 | NUR ---
Lasix was not administered due to patient potassium level 3.1. made aware.
--- NOTE | 2021-06-21 08:01 | NUR ---
Placed a call out to about Jaime Singer [id number] who is on Cardene drip. His BP 146/83 HR 87. also has Cardize PO meds to administered. Waiting for call back.
[2021-06-21] MEDS: heparin, porcine 5000 units/ml vial SQ SCH ×3 (09:00→15:52)
[2021-06-21] MEDS: multivitamins, therapeutics tablet PO SCH (09:04)
[2021-06-21] MEDS: clopidogrel 75mg tablet PO SCH (09:05)
[2021-06-21] MEDS: HYDROchlorothiazide 25mg tablet PO SCH (09:06)
[2021-06-21] MEDS: diltiazem CD 180mg cap (once-daily) PO SCH (09:07)
[2021-06-21] MEDS: lisinopril 20mg tablet PO SCH (09:07)
[2021-06-21] MEDS: VANCOMYCIN 1GM/200ML IVPB 200 ML IV SCH ×2 (09:08→20:54)
[2021-06-21] MEDS: potassium Cl 20 mEq SR tablet PO PRN ×2 (09:14→13:37)
[2021-06-21] MEDS ORDERED: hydrALAZINE 20mg/ml inj. IV PRN (09:25)
[2021-06-21] MEDS: hyDRALAzine 10mg tablet PO SCH ×2 (11:38→21:03)
[2021-06-21] MEDS: pantoprazole 40mg Tablet.DR PO SCH (11:38)
--- NOTE | 2021-06-21 12:56 | NUR ---
Initial: Pt admit dx sepsis, elephantiasis, HTN, and MO per EMR. Pt on carb controlled diet; pending PO trends. Noted pt A1c of 7.8. internal combustion engine subassembler provided written DM education and RD contact information at bedside; pt refused verbal DM education. No BM noted; receiving routine bowel care. Will continue to monitor PO trends and make recommendations as appropriate. Recommendation: 1. Continue carb controlled diet as tolerated 2. Monitor need for additional protein/ONS 3. Bowel care per Rx 4. Weekly wt Addendum: 06/21/21 at [address] Amended: Links added. Addendum: 06/21/21 at [address] I have reviewed assessment by technology risk intern
[2021-06-21] MEDS: normal saline 1000ml 1,000 ML IV SCH ×2 (13:37→23:56)
[2021-06-21] MEDS: insulin Lispro (HumaLOG) vial - multi-dose SQ SCH (13:49)
--- NOTE | 2021-06-21 17:03 | NUR ---
Dr. Spivey made aware about patient [facility] room 3022U Troponin level of 107 last result 148 trending downward.
--- NOTE | 2021-06-21 19:24 | NUR ---
Problems reprioritized. Patient report given, questions answered & plan of care reviewed with Dora.
[2021-06-21] MEDS ORDERED: insulin glargine (Lantus) pen - multi-dose SQ SCH (21:00)
[2021-06-22 02:00] VITALS: BP 154/74
[2021-06-22] MEDS: piperacillin/tazo 4.5gm/100ml 100 ML IV SCH (02:00)
--- NOTE | 2021-06-22 04:30 | NUR ---
Patient is AOX3 able to make all his needs known. He does have a bedside commode and a urinal. LLE cellulitis makes it difficult to get to the rest rom in time. He has a r wrist and lac IV both flushes and patent.
[2021-06-22 06:00] VITALS: BP 157/92
[2021-06-22] MEDS ORDERED: VANCOMYCIN LEVEL IV ONE (07:30)
[2021-06-22] MEDS: pantoprazole 40mg Tablet.DR PO SCH (07:30)
[2021-06-22] MEDS: multivitamins, therapeutics tablet PO SCH (07:41)
[2021-06-22] MEDS: HYDROcodone/acetaminophen 10/325mg tab PO PRN (07:42)
[2021-06-22] MEDS: lisinopril 20mg tablet PO SCH (07:42)
[2021-06-22 07:43] VITALS: BP_SYST 157
[2021-06-22] MEDS: clopidogrel 75mg tablet PO SCH (07:43)
[2021-06-22] MEDS: hyDRALAzine 10mg tablet PO SCH (07:43)
[2021-06-22] MEDS: diltiazem CD 180mg cap (once-daily) PO SCH (07:43)
[2021-06-22] MEDS: docusate sod 100mg capsule PO SCH (07:43)
[2021-06-22] MEDS: heparin, porcine 5000 units/ml vial SQ SCH ×2 (07:47)
[2021-06-22] MEDS: HYDROchlorothiazide 25mg tablet PO SCH (07:47)
[2021-06-22 08:52] LABS: BASOPHILS % (AUTO) 0.4 % (0-1); EOSINOPHILS # (AUTO) 0.2 X10'3 (0-0.9); EOSINOPHILS % (AUTO) 4.2 % (0-6); HEMOGLOBIN 9.1 g/dl (14.0-17.9); LYMPHOCYTES # (AUTO) 0.7 X10'3 (1.1-4.8)
[2021-06-22 08:55] LABS: HEMATOCRIT 27.5 % (42.0-52.0); LYMPHOCYTES % (AUTO) 14.1 % (21-51); MEAN CORPUSCULAR HEMOGLOBIN 26.4 PG (27.0-31.0); MEAN CORPUSCULAR VOLUME 80.2 FL (78-98); MEAN PLATELET VOLUME 8.2 FL (7.4-10.4); MONOCYTES # (AUTO) 0.7 X10'3 (0-0.9); MONOCYTES % (AUTO) 13.4 % (2-12); NEUTROPHILS # (AUTO) 3.5 X10'3 (1.8-7.7); NEUTROPHILS % (AUTO) 67.9 % (42-75); PLATELET COUNT 195 X10'3 (140-440); RED BLOOD COUNT 3.43 X10'6 (4.70-6.10); RED CELL DISTRIBUTION WIDTH 18.3 % (11.5-14.5); WHITE BLOOD COUNT 5.1 X10'3 (4.5-11.0)
[2021-06-22] MEDS: insulin Lispro (HumaLOG) vial - multi-dose SQ SCH (09:00)
[2021-06-22] MEDS ORDERED: CLOP75TA34 PO (09:01)
[2021-06-22] MEDS ORDERED: LINE600T12 PO (09:01)
[2021-06-22] MEDS ORDERED: LACT1CAP26 PO (09:01)
[2021-06-22] MEDS ORDERED: HYDR-4069 PO (09:02)
[2021-06-22 10:40] LABS: ALANINE AMINOTRANSFERASE 35 U/L (12-78); ALBUMIN 2.7 G/DL (3.4-5.0); ALBUMIN/GLOBULIN RATIO 0.7 (1.1-1.5); ALKALINE PHOSPHATASE 70 IU/L (46-116); ANION GAP 12 (8-16); ASPARTATE AMINO TRANSFERASE 22 U/L (10-37); BILIRUBIN,TOTAL 0.5 MG/DL (0.1-1.0); BLOOD UREA NITROGEN 23 MG/DL (7-18); BUN/CREATININE RATIO 10.1 (5.4-32.0); CALCIUM 8.2 MG/DL (8.5-10.1); CHLORIDE 102 MMOL/L (99-107); CREATININE 2.27 MG/DL (0.60-1.10); GLUCOSE 198 MG/DL (70-104); POTASSIUM 3.7 MMOL/L (3.5-5.1); SODIUM 142 MMOL/L (135-145); TOTAL CARBON DIOXIDE 28.4 MMOL/L (24-32); TOTAL PROTEIN 6.4 G/DL (6.4-8.2); VANCOMYCIN,TROUGH 13.4 UG/ML (6.0-14.0); eGFR 38 ML/MIN
== END 2021-06-22 11:30 | disposition home or self-care (01) | DRG 720 ==
LOC: ER 17:05 → ED HOLD 21:15 → UNDOADMIN 21:15 → ED HOLD 23:51 → EDBEDREQ 23:52 → PCU 3S 06-21 00:40
PROVIDERS: ADMIT Family Medicine; ATTEND Family Medicine
DX: A41.9 Sepsis, unspecified organism (principal); I21.A1 Myocardial infarction type 2; N17.9 Acute kidney failure, unspecified; I50.32 Chronic diastolic (congestive) heart failure; I13.0 Hypertensive heart and chronic kidney disease with heart failure and stage 1 through stage 4 chronic kidney disease, or unspecified chronic kidney disease; E66.2 Morbid (severe) obesity with alveolar hypoventilation; Z68.43 Body mass index [BMI] 50.0-59.9, adult; D63.8 Anemia in other chronic diseases classified elsewhere; Z20.822 Contact with and (suspected) exposure to COVID-19; E11.22 Type 2 diabetes mellitus with diabetic chronic kidney disease; L03.116 Cellulitis of left lower limb; E11.65 Type 2 diabetes mellitus with hyperglycemia; E78.00 Pure hypercholesterolemia, unspecified; E78.5 Hyperlipidemia, unspecified; E87.6 Hypokalemia; G89.4 Chronic pain syndrome; I16.1 Hypertensive emergency; I25.10 Atherosclerotic heart disease of native coronary artery without angina pectoris; J45.909 Unspecified asthma, uncomplicated; N18.4 Chronic kidney disease, stage 4 (severe); K21.9 Gastro-esophageal reflux disease without esophagitis; F12.10 Cannabis abuse, uncomplicated; K57.90 Diverticulosis of intestine, part unspecified, without perforation or abscess without bleeding; R59.1 Generalized enlarged lymph nodes; L30.9 Dermatitis, unspecified; M16.12 Unilateral primary osteoarthritis, left hip; R65.20 Severe sepsis without septic shock; Z79.891 Long term (current) use of opiate analgesic; Z82.49 Family history of ischemic heart disease and other diseases of the circulatory system; Z83.3 Family history of diabetes mellitus; Z86.16 Personal history of COVID-19; Z87.11 Personal history of peptic ulcer disease; Z88.8 Allergy status to other drugs, medicaments and biological substances; Z90.49 Acquired absence of other specified parts of digestive tract; Z79.899 Other long term (current) drug therapy; Z79.4 Long term (current) use of insulin
CPT/HCPCS: 36415; 71045; 73700; 74176; 80053; 80061; 80202; 80305; 81001; 82948; 83036; 83605; 83735; 83880; 84100; 84145; 84443; 84484; 85025; 85610; 85730; 87040; 87081; 87635; 93005; 93970; 99285; C9803; G0378; J0780; J1644; J1815; J1940; J2543; J3370; J3490; J7030

== ENCOUNTER 2021-12-04 12:53 | Inpatient (IN) | payer MEDICAID ==
[~2021-12-04] VITALS: Ht 190.5 cm; Wt 153.6 kg
[~2021-12-04 12:53] MED LIST changes: -ALBU18HF2 INH; +CLOP75TA34 PO; +DILT-36 PO; -DILT120C51 PO; -FERR325T32 PO; +LACT1CAP26 PO; -SIMV10TA98 PO; +epiNEPHrine 0.1mg/ml 10ml syringe ONE; +etomidate 2mg/ml inj. ONE; +rocuronium 10mg/ml inj IV ONE; +sod chloride 0.9% 10ml flush syringe IV ONE
[2021-12-04] MEDS ORDERED: acetaminophen 325mg tablet PO STA (13:26)
[2021-12-04] MEDS ORDERED: normal saline 1000ML IV soln IV ONE (13:30)
[2021-12-04 13:52] LABS: BASOPHILS % (AUTO) 0.3 % (0-1); EOSINOPHILS % (AUTO) 0.3 % (0-6); HEMATOCRIT 29.1 % (42.0-52.0); HEMOGLOBIN 9.4 g/dl (14.0-17.9); LYMPHOCYTES # (AUTO) 0.3 X10'3 (1.1-4.8); LYMPHOCYTES % (AUTO) 2.5 % (21-51); MEAN CORPUSCULAR HEMOGLOBIN 25.4 PG (27.0-31.0); MEAN CORPUSCULAR HGB CONC 32.3 g/dL (33.0-36.5); MEAN CORPUSCULAR VOLUME 78.9 FL (78-98); MEAN PLATELET VOLUME 7.5 FL (7.4-10.4); MONOCYTES # (AUTO) 0.7 X10'3 (0-0.9); MONOCYTES % (AUTO) 5.7 % (2-12); NEUTROPHILS # (AUTO) 10.3 X10'3 (1.8-7.7); NEUTROPHILS % (AUTO) 91.2 % (42-75); PLATELET COUNT 239 X10'3 (140-440); RED BLOOD COUNT 3.69 X10'6 (4.70-6.10); RED CELL DISTRIBUTION WIDTH 18.4 % (11.5-14.5); WHITE BLOOD COUNT 11.3 X10'3 (4.5-11.0)
[2021-12-04] MEDS ORDERED: metoclopramide 5 mg/ml inj IV ONE (14:00)
[2021-12-04] MEDS ORDERED: fentaNYL/PF 50MCG/1 ML 2ML syringe IV ONE (14:00)
[2021-12-04 14:12] LABS: ALANINE AMINOTRANSFERASE 27 U/L (12-78); ALBUMIN 3.4 G/DL (3.4-5.0); ALBUMIN/GLOBULIN RATIO 0.7 (1.1-1.5); ALKALINE PHOSPHATASE 67 IU/L (46-116); ANION GAP 9 (8-16); ASPARTATE AMINO TRANSFERASE 17 U/L (10-37); BILIRUBIN,TOTAL 0.6 MG/DL (0.1-1.0); BLOOD UREA NITROGEN 30 MG/DL (7-18); BUN/CREATININE RATIO 9.1 (5.4-32.0); CHLORIDE 108 MMOL/L (99-107); CREATININE 3.31 MG/DL (0.60-1.10); GLUCOSE 125 MG/DL (70-104); LIPASE 180 U/L (73-393); POTASSIUM 3.2 MMOL/L (3.5-5.1); SODIUM 143 MMOL/L (135-145); TOTAL CARBON DIOXIDE 25.8 MMOL/L (24-32); TOTAL PROTEIN 8.1 G/DL (6.4-8.2); eGFR 24 ML/MIN
[2021-12-04 14:24] LABS: CLARITY,URINE SLIGHTLY CLOUDY (Clear); COLOR,URINE YELLOW (Yellow); GLUCOSE, URINE >=1000 mg/dl (Neg); KETONES,URINE NEGATIVE (Neg); LEUKOCYTE ESTERASE ,URINE NEGATIVE (Neg); NITRITES, URINE NEGATIVE (Neg); OCCULT BLOOD,URINE TRACE-INTACT (Neg); PROTEIN,URINE 100 mg/dl (Neg); UROBILINOGEN,URINE 0.2 E.U/dL (0.2-1.0)
[2021-12-04 14:33] LABS: UA COLLECTION TYPE URINAL
[2021-12-04 14:34] LABS: COARSE GRANULAR CAST 0-3 /LPF (NEGATIVE)
[2021-12-04 14:35] LABS: HYALINE CASTS 0-3 /LPF (NEGATIVE); SQUAMOUS EPITHELIAL CELL,UR FEW /LPF (FEW)
[2021-12-04] MEDS ORDERED: piperacillin/tazo 3.375gm/50ml 50 ML IV ONE (14:35)
[2021-12-04 14:36] LABS: BACTERIA,URINE FEW /HPF (Neg); RBC,URINE 0-2 /HPF (0-2); WBC,URINE 0-4 /HPF (0-4)
[2021-12-04] MEDS ORDERED: potassium Cl 10 mEq/100mL bag IV ONE (14:40)
[2021-12-04] MEDS ORDERED: metoprolol tartrate 1mg/ml inj IV ONE (14:40)
[2021-12-04] MEDS ORDERED: morphine 2 MG/ML inj. syringe IV PRN (14:50)
[2021-12-04] MEDS ORDERED: magnesium Cl slow-release 64mg tablet PO PRN (14:50)
[2021-12-04] MEDS ORDERED: magnesium 4gm in 100ml NS 100 ML IV PRN (14:50)
[2021-12-04] MEDS ORDERED: acetaminophen 325mg tablet PO PRN (14:50)
[2021-12-04] MEDS ORDERED: ondansetron 4mg rapidly disintigrating tab PO PRN (14:50)
[2021-12-04] MEDS ORDERED: POTASSIUM BICARB 20meq eff tab 20 MEQ TABLET.EFF PO PRN ×2 (14:50)
[2021-12-04] MEDS ORDERED: metoclopramide 5 mg/ml inj IV PRN (14:50)
[2021-12-04] MEDS ORDERED: potassium CL 10mEq/100ml bag 100 ML IV PRN (14:50)
[2021-12-04] MEDS ORDERED: magnesium 2GM in 50ml NS 50 ML IV PRN (14:50)
[2021-12-04 15:22] LABS: MAGNESIUM 1.7 MG/DL (1.5-2.4)
[2021-12-04] MEDS ORDERED: levoFLOXACIN-Levaquin 250mg/D5 50 ML IV ONE ×2 (15:28→17:40)
[2021-12-04] MEDS ORDERED: diphenhydrAMINE 50 mg/ml inj ONE (15:38)
[2021-12-04] MEDS ORDERED: diphenhydrAMINE 50 mg/ml inj IV ONE (15:40)
[2021-12-04] MEDS ORDERED: famotidine/PF 10 mg/ml inj IV ONE (15:40)
[2021-12-04] MEDS ORDERED: methylPREDNISolone sod succ 125mg/2ml vial IV ONE (15:40)
--- NOTE | 2021-12-04 15:48 | NUR ---
Pt brought to bed bed 4.
[2021-12-04] MEDS ORDERED: furosemide 10 MG/1 ML 10ml inj IV ONE (15:50)
--- NOTE | 2021-12-04 16:03 | NUR ---
shortly after starting zosyn infusion, patient heart rate began to rise. assessment was performed and patient was hot and diaphoretic, very anxious and complaining of shortness of breath. zosyn was immediately stopped and additional help was requested. ER MD evaluated and EKG and benadryl were ordered. while performing EKG prashanth had a brief period of loss of consciousness and heart rate dropped. pads were placed and suctioning performed with ventilations by RT as needed. prashanth pulled IV out during movement and additional iv obtained. moved to ER bed 4 and report passed onto Ashlee LA
[2021-12-04] MEDS: normal saline 1000ml 1,000 ML IV SCH (16:15)
[2021-12-04 16:48] LABS: ABG BASE EXCESS -8.1 mmol/L (-2.0-2.0); ABG HCO3 17.7 mmol/L (22.0-26.0); ABG OXYGEN SATURATION 74.4 % (94-97); ABG PCO2 (T) 37.3 mmHg (35.0-48.0); ABG PO2 (T) 45.5 mmHg (75.0-100.0); FCOHb 1.3 % (0.0-3.9); FMetHb 0.4 % (0.0-1.5); FO2Hb 73.1 % (94-97); TOTAL HEMOGLOBIN 14.6 G/dl (14.0-18.0)
--- NOTE | 2021-12-04 17:00 | NUR ---
Pt had been incont of stool. Pt assisted up to BSC, bed and pt cleaned and linen changed, pt now back in bed. Pt remained on bi-pap during activity.
[2021-12-04] MEDS: heparin 10,000 units/1 ML INJ IV ONE (17:30)
[2021-12-04] MEDS ORDERED: heparin 10,000 units/1 ML INJ IV ONE (18:20)
[2021-12-04 18:36] LABS: APTT 31 SECONDS (22-32)
--- NOTE | 2021-12-04 19:48 | NUR ---
ECHO PAGED AT 2450
[2021-12-04] MEDS ORDERED: heparin, porcine 5000 units/ml vial SQ SCH (20:00)
[2021-12-04] MEDS: K and/or MAG REPLACEMENT MC SCH (20:00)
[2021-12-04] MEDS ORDERED: normal saline 500ml IV soln 500 ML IV ONE (20:15)
[2021-12-04] MEDS ORDERED: temazepam 15mg capsule PO PRN (21:00)
[2021-12-04 21:09] LABS: ABG BASE EXCESS -4.8 mmol/L (-2.0-2.0); ABG HCO3 20.4 mmol/L (22.0-26.0); ABG PO2 (T) 184.7 mmHg (75.0-100.0); ALLEN'S TEST POSITIVE; FCOHb 0.1 % (0.0-3.9); FMetHb 0.3 % (0.0-1.5); FO2Hb 98.6 % (94-97); PATIENT TEMPERATURE 37.5; TOTAL HEMOGLOBIN 11.8 G/dl (14.0-18.0)
[2021-12-04] MEDS: heparin 25,000 UNIT/250ml bag 250 ML IV SCH (21:20)
[2021-12-04] MEDS ORDERED: DILT360C38 PO (23:35)
[2021-12-04] MEDS ORDERED: DAPA10TA PO (23:35)
[2021-12-04] MEDS ORDERED: HYDR-4070 PO (23:35)
[2021-12-05] MEDS: heparin 10,000 units/1 ML INJ IV ONE (02:06)
[2021-12-05] MEDS: HYDROcodone/acetaminophen 5mg/325mg tablet PO PRN ×3 (02:22→20:23)
[2021-12-05 03:54] LABS: BASOPHILS % (AUTO) 0.2 % (0-1); EOSINOPHILS % (AUTO) 0.1 % (0-6); HEMATOCRIT 27.6 % (42.0-52.0); HEMOGLOBIN 8.9 g/dl (14.0-17.9); LYMPHOCYTES # (AUTO) 0.4 X10'3 (1.1-4.8); LYMPHOCYTES % (AUTO) 2.7 % (21-51); MEAN CORPUSCULAR HEMOGLOBIN 25.7 PG (27.0-31.0); MEAN CORPUSCULAR HGB CONC 32.2 g/dL (33.0-36.5); MEAN CORPUSCULAR VOLUME 79.7 FL (78-98); MEAN PLATELET VOLUME 8.1 FL (7.4-10.4); MONOCYTES # (AUTO) 0.3 X10'3 (0-0.9); MONOCYTES % (AUTO) 2.4 % (2-12); NEUTROPHILS # (AUTO) 12.7 X10'3 (1.8-7.7); NEUTROPHILS % (AUTO) 94.6 % (42-75); PLATELET COUNT 202 X10'3 (140-440); RED BLOOD COUNT 3.46 X10'6 (4.70-6.10); RED CELL DISTRIBUTION WIDTH 18.8 % (11.5-14.5); WHITE BLOOD COUNT 13.4 X10'3 (4.5-11.0)
[2021-12-05 04:21] LABS: ANISOCYTOSIS 2+; MICROCYTOSIS 1+; PLATELET ESTIMATE NORMAL
[2021-12-05] MEDS: K and/or MAG REPLACEMENT MC SCH ×2 (08:00→20:00)
[2021-12-05 08:44] LABS: ALBUMIN 2.7 G/DL (3.4-5.0); ANION GAP 14 (8-16); BLOOD UREA NITROGEN 40 MG/DL (7-18); BUN/CREATININE RATIO 9.6 (5.4-32.0); CALCIUM 8.2 MG/DL (8.5-10.1); CHLORIDE 105 MMOL/L (99-107); CREATININE 4.17 MG/DL (0.60-1.10); GLUCOSE 170 MG/DL (70-104); MAGNESIUM 1.8 MG/DL (1.5-2.4); POTASSIUM 3.9 MMOL/L (3.5-5.1); SODIUM 141 MMOL/L (135-145); TOTAL CARBON DIOXIDE 22.1 MMOL/L (24-32); eGFR 19 ML/MIN
[2021-12-05] MEDS ORDERED: heparin 10,000 units/1 ML INJ IV ONE (10:10)
[2021-12-05] MEDS ORDERED: heparin 25,000 UNIT/250ml bag 250 ML IV SCH (10:10)
[2021-12-05] MEDS: clopidogrel 75mg tablet PO SCH (11:04)
[2021-12-05] MEDS: diltiazem CD 180mg cap (once-daily) PO SCH (11:04)
[2021-12-05] MEDS: normal saline 1000ml 1,000 ML IV SCH (11:20)
[2021-12-05 11:30] LABS: APTT 30 SECONDS (22-32)
[2021-12-05 11:55] LABS: BASOPHILS % (AUTO) 0.1 % (0-1); EOSINOPHILS % (AUTO) 0 % (0-6); HEMATOCRIT 29.3 % (42.0-52.0); HEMOGLOBIN 9.4 g/dl (14.0-17.9); LYMPHOCYTES # (AUTO) 0.6 X10'3 (1.1-4.8); MEAN CORPUSCULAR HEMOGLOBIN 25.5 PG (27.0-31.0); MEAN CORPUSCULAR HGB CONC 31.9 g/dL (33.0-36.5); MEAN CORPUSCULAR VOLUME 79.9 FL (78-98); MEAN PLATELET VOLUME 7.9 FL (7.4-10.4); MONOCYTES # (AUTO) 0.7 X10'3 (0-0.9); MONOCYTES % (AUTO) 5.6 % (2-12); NEUTROPHILS # (AUTO) 11.2 X10'3 (1.8-7.7); NEUTROPHILS % (AUTO) 89.3 % (42-75); PLATELET COUNT 254 X10'3 (140-440); RED BLOOD COUNT 3.67 X10'6 (4.70-6.10); RED CELL DISTRIBUTION WIDTH 18.7 % (11.5-14.5); WHITE BLOOD COUNT 12.5 X10'3 (4.5-11.0)
[2021-12-05 13:31] LABS: PLATELET ESTIMATE NORMAL
[2021-12-05 13:32] LABS: ANISOCYTOSIS 2+; MICROCYTOSIS 1+; POIKILOCYTOSIS 1+
[2021-12-05] MEDS ORDERED: aminophylline 500mg/20ml vial IV PRN (15:45)
[2021-12-05] MEDS ORDERED: metoprolol tartrate 1mg/ml inj IV PRN (15:45)
[2021-12-05] MEDS ORDERED: nitroGLYCERIN 0.4mg SUBLingual tab SL PRN (15:45)
[2021-12-05] MEDS ORDERED: regadenoson 0.4mg/5ml syringe IV PRN (15:45)
[2021-12-05] MEDS: hydrALAZINE 25 MG tablet PO SCH (16:00)
--- NOTE | 2021-12-05 17:25 | NUR ---
Pt has had numerous attempts for coag lab draw without success. Pts heparin gtt IV flushed and being placed on hold for 20 min and to draw labs from line.
[2021-12-05] MEDS: heparin 25,000 UNIT/250ml bag 250 ML IV SCH (17:30)
[2021-12-05] MEDS: lansoprazole 15mg solutab PO SCH (20:00)
[2021-12-06] VITALS (28 sets, daily range): BP systolic 65–254; BP diastolic 32–128
--- NOTE | 2021-12-06 00:10 | NUR ---
Received report from Kiesha LA from ED. Patient came up via hospital bed, at bedside. Bed placed in locked & low, position. Call light placed within reach.
[2021-12-06] MEDS: hydrALAZINE 25 MG tablet PO SCH ×3 (00:32→16:00)
[2021-12-06] MEDS: HYDROcodone/acetaminophen 5mg/325mg tablet PO PRN (00:33)
[2021-12-06] MEDS: heparin 10,000 units/1 ML INJ IV PRN ×2 (01:50→10:56)
--- NOTE | 2021-12-06 03:07 | NUR ---
RT added 4L oxygen to pt's cpap for sats in 80's. now sats 96%.
--- NOTE | 2021-12-06 06:08 | NUR ---
Problems reprioritized. Patient report given, questions answered & plan of care reviewed with Haily LA.
[2021-12-06] MEDS: diltiazem CD 180mg cap (once-daily) PO SCH (07:23)
[2021-12-06] MEDS: clopidogrel 75mg tablet PO SCH (07:23)
[2021-12-06] MEDS: lansoprazole 15mg solutab PO SCH ×2 (07:24→20:00)
[2021-12-06] MEDS: multivitamins, therapeutics tablet PO SCH (07:25)
[2021-12-06] MEDS: LIRAGLUTIDE 0.6 MG/0.1 ML PEN.INJCTR SQ SCH (07:26)
[2021-12-06] MEDS: normal saline 1000ml 1,000 ML IV SCH (07:28)
[2021-12-06] MEDS: K and/or MAG REPLACEMENT MC SCH ×2 (07:32→20:00)
--- NOTE | 2021-12-06 08:01 | NUR ---
Diabetes consult: Noted pt w/ hx of DM A1c 6.3. well controlled and appropriate. DM ed not indicated at this time. Addendum: 12/06/21 at [address] Amended: Links added.
[2021-12-06 08:27] LABS: BASOPHILS % (AUTO) 0.3 % (0-1); EOSINOPHILS % (AUTO) 0.6 % (0-6); HEMATOCRIT 27.6 % (42.0-52.0); HEMOGLOBIN 8.8 g/dl (14.0-17.9); LYMPHOCYTES # (AUTO) 0.8 X10'3 (1.1-4.8); LYMPHOCYTES % (AUTO) 10.1 % (21-51); MEAN CORPUSCULAR HEMOGLOBIN 25.7 PG (27.0-31.0); MEAN CORPUSCULAR HGB CONC 31.8 g/dL (33.0-36.5); MEAN CORPUSCULAR VOLUME 80.6 FL (78-98); MONOCYTES # (AUTO) 0.6 X10'3 (0-0.9); MONOCYTES % (AUTO) 8.4 % (2-12); NEUTROPHILS # (AUTO) 6.2 X10'3 (1.8-7.7); NEUTROPHILS % (AUTO) 80.6 % (42-75); PLATELET COUNT 199 X10'3 (140-440); RED BLOOD COUNT 3.42 X10'6 (4.70-6.10); RED CELL DISTRIBUTION WIDTH 18.1 % (11.5-14.5); WHITE BLOOD COUNT 7.7 X10'3 (4.5-11.0)
[2021-12-06 08:37] LABS: ALBUMIN 2.9 G/DL (3.4-5.0); ANION GAP 12 (8-16); BLOOD UREA NITROGEN 42 MG/DL (7-18); BUN/CREATININE RATIO 10.7 (5.4-32.0); CALCIUM 8.5 MG/DL (8.5-10.1); CHLORIDE 105 MMOL/L (99-107); CREATININE 3.92 MG/DL (0.60-1.10); GLUCOSE 121 MG/DL (70-104); MAGNESIUM 1.9 MG/DL (1.5-2.4); POTASSIUM 3.6 MMOL/L (3.5-5.1); SODIUM 140 MMOL/L (135-145); TOTAL CARBON DIOXIDE 23.4 MMOL/L (24-32); eGFR 20 ML/MIN
--- NOTE | 2021-12-06 08:48 | NUR ---
PT TO NUC MED WITH RN, PULSE OX 89% ON ROOM AIR WHILE LYING FLAT, PT ASKING FOR 02, PLACED PT ON NASAL CANNULA 4LITERS, PULSE OX INCREASED TO 92%, PT SAID HE WOULD BE ABLE TO CONTINUE WITH TEST. NO CHEST PAIN/DISCOMFORT, RESP EVEN AND UNLABORED,
--- NOTE | 2021-12-06 10:16 | NUR ---
Patient has been down in Deann scan since approximately 819. Heparin stopped for extended period of time, airborne operations notified. Will resume heparin as soon as possible
--- NOTE | 2021-12-06 11:00 | NUR ---
After patient returned from [facility] pt experienced increased SOB, elevated hr, elevated blood pressure. Rapid response was called. Despite antihypertensives, bronchodilators etc patient continued to require more respiratory support and blood pressure remained elevated, 250/100. Pt transferred to ICU for closer evaluation.
[2021-12-06] MEDS ORDERED: hydrALAZINE 20mg/ml inj. IV ONE (11:30)
[2021-12-06 11:33] LABS: ABG BASE EXCESS -4.2 mmol/L (-2.0-2.0); ABG HCO3 21.3 mmol/L (22.0-26.0); ABG OXYGEN SATURATION 84.9 % (94-97); ABG PO2 (T) 52.4 mmHg (75.0-100.0); ALLEN'S TEST POSITIVE; FCOHb 0.3 % (0.0-3.9); FLOW 6 L/min; FMetHb 0.3 % (0.0-1.5); FO2Hb 84.4 % (94-97); TOTAL HEMOGLOBIN 10.4 G/dl (14.0-18.0)
[2021-12-06] MEDS ORDERED: ALBUTEROL INHALER 1 PUFF/90 MCG INHALation IH PRN (11:40)
[2021-12-06] MEDS ORDERED: furosemide 10 MG/1 ML 10ml inj IV ONE (11:40)
[2021-12-06] MEDS ORDERED: ipratropium/albuterol 3ml nebule NEB PRN (11:45)
[2021-12-06] MEDS ORDERED: LIDOcaine 2% 10ml TOPICAL JELLY (Urojet) TP ONE (12:00)
[2021-12-06] MEDS ORDERED: metoclopramide 5 mg/ml inj IV ONE (12:05)
[2021-12-06] MEDS ORDERED: levoFLOXACIN-Levaquin 500mg/D5 100 ML IV ONE (12:20)
[2021-12-06] MEDS ORDERED: DEXTROSE 15 GM of carb/4 tabs (each vial/BOTTLE has 4 tablets) PO PRN ×2 (12:30)
[2021-12-06] MEDS ORDERED: dextrose 50%-water 50ml dispensing syringe IV PRN ×2 (12:30)
[2021-12-06] MEDS ORDERED: glucagon, human recombinant 1mg kit SUBCUT PRN (12:30)
[2021-12-06] MEDS: hydrALAZINE 20mg/ml inj. IV PRN (12:54)
[2021-12-06] MEDS ORDERED: labetalol 20mg/4ml (5mg/ml) syringe IV ONE (13:20)
--- NOTE | 2021-12-06 13:45 | NUR ---
Received patient from Ortho/Neuro. Patient with dyspnea & tachypnea with frequent coughing of thin bloody secretions. On HFNC 100% @ 40 Liters with NRB in addition. Patient hypertensive. Labetalol given.
--- NOTE | 2021-12-06 13:50 | NUR ---
pt transfer to icu
[2021-12-06] MEDS: DEXMEDETOMIDINE IN 0.9 % NACL 50 ML IV SCH ×4 (14:03→17:06)
[2021-12-06] MEDS ORDERED: Neutra Phos packet PO PRN (14:10)
[2021-12-06] MEDS ORDERED: magnesium Cl slow-release 64mg tablet PO PRN (14:10)
[2021-12-06] MEDS ORDERED: sodium phosphate inj. 30 MMOL in dextrose 5%-water 250 ML IV PRN (14:10)
[2021-12-06] MEDS ORDERED: potassium Cl 20 mEq SR tablet PO PRN ×2 (14:10)
[2021-12-06] MEDS ORDERED: magnesium 2GM in 50ml NS 50 ML IV PRN (14:10)
[2021-12-06] MEDS ORDERED: sodium phosphate inj. 15 MMOL in dextrose 5%-water 250 ML IV PRN (14:10)
[2021-12-06] MEDS ORDERED: magnesium 4gm in 100ml NS 100 ML IV PRN (14:10)
[2021-12-06] MEDS: furosemide inj 1,000 MG in normal saline 250ml IV soln 150 ML IV SCH (14:41)
[2021-12-06] MEDS ORDERED: nitroGLYCERIN-Tridil 50MG/D5W 250 ML IV PRN (14:50)
[2021-12-06] MEDS ORDERED: nitroGLYCERIN-Tridil 50MG/D5W 250 ML IV ONE (14:51)
--- NOTE | 2021-12-06 15:00 | NUR ---
Precedex gtt maxed to 1.4 mcg/kg/min. Lasix gtt on to try to diurese patient. NTG gtt added to decrease preload.
[2021-12-06 15:16] LABS: MAGNESIUM 1.8 MG/DL (1.5-2.4); POTASSIUM 3.6 MMOL/L (3.5-5.1)
[2021-12-06] MEDS ORDERED: LORazepam 2 mg/ml vial IV STA (16:58)
[2021-12-06] MEDS ORDERED: LORazepam 2 mg/ml vial ONE (17:03)
[2021-12-06] MEDS: DEXMEDETOMIDINE 400MCG in NORMAL SALINE 100ml IV SCH ×4 (17:05→23:35)
[2021-12-06] MEDS ORDERED: midazolam 1 mg/ML 2ml injection ONE (17:43)
[2021-12-06] MEDS ORDERED: propofol 1000mg/100ml bottle 100 ML IV ONE (17:43)
--- NOTE | 2021-12-06 18:00 | NUR ---
Patient states he is very tired and wants to go on BIPAP. Attempted to place patient on BiPAP. Patient becoming more agitated and confused. Ativan given without improvement. Resp rate 65. Patient unable to slow RR. Dr. Morillo notified. CXR done. Determined to intubate patient. Pt's sats decreased to 4 during intubation. Copious thin bloody secretions. Dr. Morillo unable to intubate patient. Dr. Grigsby in and patient intubated. Difficulty keeping sats up. Required continuous bagging with 100% ambu-bag. Pt's updated on patient's status.
[2021-12-06] MEDS ORDERED: NORepinephrine 8mg/ 250ml NS 250 ML IV ONE (18:34)
[2021-12-06] MEDS: propofol 1000mg/100ml bottle 100 ML IV SCH (18:35)
[2021-12-06] MEDS ORDERED: NORepinephrine 8mg/ 250ml NS 250 ML IV SCH (18:35)
[2021-12-06] MEDS ORDERED: albuterol 2.5 MG/3 ML nebule ONE (18:37)
[2021-12-06] MEDS: ipratropium/albuterol 3ml nebule NEB SCH ×2 (19:00→22:20)
[2021-12-06] MEDS ORDERED: heparin 10,000 units/1 ML INJ IV ONE ×2 (19:05→22:05)
[2021-12-06] MEDS ORDERED: heparin 10,000 units/1 ML INJ IV PRN ×2 (19:05→22:05)
[2021-12-06 19:34] LABS: ABG BASE EXCESS -9.5 mmol/L (-2.0-2.0); ABG HCO3 19.9 mmol/L (22.0-26.0); ABG OXYGEN SATURATION 86.7 % (94-97); ABG PCO2 (T) 60.6 mmHg (35.0-48.0); ABG PO2 (T) 66.2 mmHg (75.0-100.0); FCOHb 0.3 % (0.0-3.9); FMetHb 0.4 % (0.0-1.5); FO2Hb 86.1 % (94-97); PEEP 25 cm H2O; TOTAL HEMOGLOBIN 11.2 G/dl (14.0-18.0)
[2021-12-06] MEDS ORDERED: fentaNYL/PF 50MCG/1 ML 2ML syringe IV PRN (19:35)
[2021-12-06] MEDS ORDERED: FENTANYL-0.9 % NACL/PF 100 ML IV PRN (19:35)
[2021-12-06] MEDS ORDERED: VECuronium br 10mg inj. IV ONE (19:40)
[2021-12-06] MEDS: diphenhydrAMINE 50 mg/ml inj IV SCH (20:00)
[2021-12-06] MEDS: CISatracurium besylate inj. 100 MG in normal saline 100ml IV soln 90 ML IV PRN (20:16)
--- NOTE | 2021-12-06 20:30 | NUR ---
Pt intubated, central line and art line placed at change of shift. Pt is 100% fio2 peep of 24. Pt desaturates into the 50's. Bagged multilple times by RT to get o2 saturations up. When detached from vent, copious amounts of frothy pink sputum discharged from et tube. Pt urinary out put decreased DR hammond notified he ordered 2 mg bumex to increase urinary output. at bedside
[2021-12-06] MEDS ORDERED: dexamethasone inj 6 MG in dextrose 5%-water 100 ML IV SCH (20:45)
[2021-12-06] MEDS ORDERED: dexamethasone sod phosphate 4mg/ml inj. IV SCH (20:53)
[2021-12-06] MEDS: insulin glargine (Lantus) pen - multi-dose SQ SCH (21:00)
[2021-12-06] MEDS ORDERED: propofol 1000mg/100ml bottle 100 ML IV SCH (21:40)
[2021-12-06] MEDS: FENTANYL-0.9 % NACL/PF 100 ML IV PRN (21:47)
[2021-12-06] MEDS ORDERED: heparin 25,000 UNIT/250ml bag 250 ML IV SCH (22:05)
[2021-12-06] MEDS: heparin 25,000 UNIT/250ml bag 250 ML IV SCH (22:18)
[2021-12-06 22:53] LABS: ALANINE AMINOTRANSFERASE 67 U/L (12-78); ALBUMIN 2.7 G/DL (3.4-5.0); ALBUMIN/GLOBULIN RATIO 0.6 (1.1-1.5); ALKALINE PHOSPHATASE 76 IU/L (46-116); ANION GAP 14 (8-16); ASPARTATE AMINO TRANSFERASE 37 U/L (10-37); BILIRUBIN,TOTAL 0.4 MG/DL (0.1-1.0); BLOOD UREA NITROGEN 44 MG/DL (7-18); BUN/CREATININE RATIO 9.3 (5.4-32.0); CALCIUM 8.1 MG/DL (8.5-10.1); CHLORIDE 104 MMOL/L (99-107); CREATININE 4.71 MG/DL (0.60-1.10); GLUCOSE 332 MG/DL (70-104); POTASSIUM 4.4 MMOL/L (3.5-5.1); SODIUM 143 MMOL/L (135-145); TOTAL CARBON DIOXIDE 24.7 MMOL/L (24-32); TOTAL PROTEIN 7.4 G/DL (6.4-8.2); eGFR 16 ML/MIN
[2021-12-06 22:55] LABS: BASOPHILS % (AUTO) 0.3 % (0-1); EOSINOPHILS % (AUTO) 0.1 % (0-6); HEMATOCRIT 32.6 % (42.0-52.0); HEMOGLOBIN 10.1 g/dl (14.0-17.9); LYMPHOCYTES # (AUTO) 0.7 X10'3 (1.1-4.8); LYMPHOCYTES % (AUTO) 9.2 % (21-51); MEAN CORPUSCULAR HEMOGLOBIN 25.7 PG (27.0-31.0); MEAN CORPUSCULAR HGB CONC 30.9 g/dL (33.0-36.5); MEAN CORPUSCULAR VOLUME 83.2 FL (78-98); MEAN PLATELET VOLUME 8.7 FL (7.4-10.4); MONOCYTES # (AUTO) 0.4 X10'3 (0-0.9); MONOCYTES % (AUTO) 4.8 % (2-12); NEUTROPHILS # (AUTO) 6.6 X10'3 (1.8-7.7); NEUTROPHILS % (AUTO) 85.6 % (42-75); PLATELET COUNT 341 X10'3 (140-440); RED BLOOD COUNT 3.92 X10'6 (4.70-6.10); RED CELL DISTRIBUTION WIDTH 18.6 % (11.5-14.5); WHITE BLOOD COUNT 7.7 X10'3 (4.5-11.0)
--- NOTE | 2021-12-06 23:00 | NUR ---
at bedside, Spoke to dr hammond on the phone about poor prognosis, she convened with her family including her aunt and decided to make him a DNR, vent changed from a/c vc to a/c prvc. with these new settings pt is able to maintain saturations in the mid 70's with out requiring the ambu bag.
[2021-12-06] MEDS ORDERED: bumetanide 0.25mg/ml 4ml vial IV ONE (23:20)
[2021-12-06] MEDS: insulin Lispro (HumaLOG) vial - multi-dose SQ SCH (23:45)
[2021-12-07] VITALS (34 sets, daily range): BP systolic 95–135; BP diastolic 48–70
[2021-12-07] MEDS: methylPREDNISolone sod succ 125mg/2ml vial IV SCH ×5 (00:18→20:29)
[2021-12-07] MEDS: propofol 1000mg/100ml bottle 100 ML IV SCH ×5 (01:28→20:28)
[2021-12-07] MEDS: DEXMEDETOMIDINE 400MCG in NORMAL SALINE 100ml IV SCH ×3 (01:45→06:05)
[2021-12-07] MEDS: ipratropium/albuterol 3ml nebule NEB SCH ×6 (02:55→22:28)
[2021-12-07] MEDS: FENTANYL-0.9 % NACL/PF 100 ML IV PRN ×3 (03:12→23:36)
[2021-12-07 03:15] LABS: ABG BASE EXCESS -10.2 mmol/L (-2.0-2.0); ABG HCO3 22.3 mmol/L (22.0-26.0); ABG OXYGEN SATURATION 75.5 % (94-97); ABG PO2 (T) 46.2 mmHg (75.0-100.0); FCOHb 0.2 % (0.0-3.9); FMetHb 0.3 % (0.0-1.5); FO2Hb 75.1 % (94-97); PEEP 24 cm H2O; RESPIRATORY RATE 25 b/min; TIDAL VOLUME 400 mL; TOTAL HEMOGLOBIN 12.1 G/dl (14.0-18.0)
--- NOTE | 2021-12-07 03:30 | NUR ---
PT Abg has declined with a pH of 7.0 po2 46 and co2 91, urinary output is still 0. Dr. Graham ordered lasix drip stopped and wanted to try 2 more mg of bumex iv. Pt saturated in the 70's since vent changes. Dr graham says not much more to do at this point.
[2021-12-07] MEDS: insulin Lispro (HumaLOG) vial - multi-dose SQ SCH ×3 (03:45→20:38)
[2021-12-07 03:50] LABS: BASOPHILS % (AUTO) 0.1 % (0-1); EOSINOPHILS % (AUTO) 0.1 % (0-6); HEMATOCRIT 34.1 % (42.0-52.0); HEMOGLOBIN 10.5 g/dl (14.0-17.9); LYMPHOCYTES # (AUTO) 0.6 X10'3 (1.1-4.8); LYMPHOCYTES % (AUTO) 4.9 % (21-51); MEAN CORPUSCULAR HEMOGLOBIN 25.7 PG (27.0-31.0); MEAN CORPUSCULAR HGB CONC 30.8 g/dL (33.0-36.5); MEAN CORPUSCULAR VOLUME 83.2 FL (78-98); MEAN PLATELET VOLUME 8.3 FL (7.4-10.4); MONOCYTES # (AUTO) 0.4 X10'3 (0-0.9); MONOCYTES % (AUTO) 3.2 % (2-12); NEUTROPHILS # (AUTO) 10.7 X10'3 (1.8-7.7); NEUTROPHILS % (AUTO) 91.7 % (42-75); PLATELET COUNT 388 X10'3 (140-440); RED BLOOD COUNT 4.09 X10'6 (4.70-6.10); RED CELL DISTRIBUTION WIDTH 19.4 % (11.5-14.5); WHITE BLOOD COUNT 11.7 X10'3 (4.5-11.0)
[2021-12-07 04:03] LABS: ALBUMIN 2.6 G/DL (3.4-5.0); ANION GAP 11 (8-16); BLOOD UREA NITROGEN 50 MG/DL (7-18); BUN/CREATININE RATIO 9.3 (5.4-32.0); CALCIUM 8.3 MG/DL (8.5-10.1); CHLORIDE 104 MMOL/L (99-107); CHOL/HDL RATIO 3.3 (0.00-4.99); CHOLESTEROL 111 MG/DL (0-200); GLUCOSE 324 MG/DL (70-104); HDL CHOLESTEROL 34 MG/DL (35-60); LDL CHOLESTEROL 34 MG/DL (50-100); MAGNESIUM 2.1 MG/DL (1.5-2.4); POTASSIUM 4.6 MMOL/L (3.5-5.1); SODIUM 140 MMOL/L (135-145); TOTAL CARBON DIOXIDE 24.8 MMOL/L (24-32); TRIGLYCERIDES 205 MG/DL (20-135); eGFR 14 ML/MIN
[2021-12-07] MEDS ORDERED: bumetanide 0.25mg/ml 4ml vial IV ONE (04:20)
[2021-12-07 04:35] LABS: TOTAL CELLS COUNTED 100
[2021-12-07 04:36] LABS: ANISOCYTOSIS 2+; PLATELET ESTIMATE NORMAL
[2021-12-07 04:37] LABS: HYPOCHROMASIA 1+
[2021-12-07] MEDS: heparin 25,000 UNIT/250ml bag 250 ML IV SCH ×3 (04:50→23:08)
[2021-12-07] MEDS: NORepinephrine inj. 32 MG in normal saline 250ml IV soln 218 ML IV SCH ×2 (04:54→17:00)
[2021-12-07] MEDS: LIRAGLUTIDE 0.6 MG/0.1 ML PEN.INJCTR SQ SCH (08:00)
[2021-12-07] MEDS: multivitamins, therapeutics tablet PO SCH (08:00)
[2021-12-07] MEDS: hydrALAZINE 25 MG tablet PO SCH ×4 (08:00→23:37)
[2021-12-07] MEDS ORDERED: levoFLOXACIN-Levaquin 500mg/D5 100 ML IV SCH (08:00)
[2021-12-07] MEDS: diltiazem CD 180mg cap (once-daily) PO SCH (08:00)
[2021-12-07] MEDS: K, MAG and/or Phos replacement - Verify level? MC SCH (08:00)
[2021-12-07] MEDS: CISatracurium besylate inj. 100 MG in normal saline 100ml IV soln 90 ML IV PRN ×2 (08:26→23:36)
[2021-12-07] MEDS: pantoprazole 40MG/NS 100ML BAG 100 ML IV SCH (08:35)
[2021-12-07] MEDS: diphenhydrAMINE 50 mg/ml inj IV SCH ×3 (08:43→16:16)
[2021-12-07] MEDS: clopidogrel 75mg tablet PO SCH (08:43)
[2021-12-07 08:59] LABS: ABG HCO3 20.4 mmol/L (22.0-26.0); ABG OXYGEN SATURATION 90.8 % (94-97); ABG PCO2 (T) 86.1 mmHg (35.0-48.0); ABG PO2 (T) 67.6 mmHg (75.0-100.0); FCOHb 0.2 % (0.0-3.9); FMetHb 0.5 % (0.0-1.5); FO2Hb 90.2 % (94-97); PEEP 24 cm H2O; RESPIRATORY RATE 25 b/min; TIDAL VOLUME 400 mL; TOTAL HEMOGLOBIN 11.9 G/dl (14.0-18.0)
[2021-12-07] MEDS ORDERED: sodium bicarbonate (8.4%) 1 mEq/ml syringe ONE (09:01)
[2021-12-07] MEDS ORDERED: Duosol 4K/3 Ca (w/calcium) 5,000 ML HE SCH (09:35)
[2021-12-07] MEDS ORDERED: sodium phosphate inj. 30 MMOL in normal saline 250ml IV soln 250 ML IV PRN (09:35)
[2021-12-07] MEDS ORDERED: potassium Cl 40MEQ/250ML bag 270 ML IV PRN (09:35)
[2021-12-07] MEDS ORDERED: calcium chloride inj. 1,000 MG in normal saline 100ml IV soln 100 ML IV PRN (09:35)
[2021-12-07] MEDS ORDERED: heparin 10,000 units/1 ML INJ IV ONE (09:35)
[2021-12-07] MEDS ORDERED: heparin 25,000 UNIT/250ml bag 250 ML IV SCH (09:35)
[2021-12-07] MEDS ORDERED: magnesium 4gm in 100ml NS 100 ML IV PRN (09:35)
--- NOTE | 2021-12-07 11:32 | NUR ---
Srini Consult: Pt intubated last night DX pulmonary edema, LLE cellulitis, LLE lymphedema, HTN, acute oliguric renal failure, and metabolic acidosis per EMR. Srini 9 w/ skin intact per EMR. Pt NPO MAP 83 receiving Propofol at 15.9ml/hr visualized at rounds this AM. Propofol providing 420 kcals/day. No documented BM yet this admit. Will monitor for nutrition intervention needs; EN recs below in case prolonged intubation. Rec: 1. IF TF; Vital HP at 95ml/hr goal would provide 2280ml volume/day, 2280 kcals, 1906ml water, and 199g protein 2. IF TF; additional water flush since considering CVVH per MD note 3. routine bowel care 4. daily wts 5. upon extubation; advance diet as medically indicated to heart healthy Addendum: 12/07/21 at [address] Amended: Links added.
[2021-12-07 11:53] LABS: MEAN CORPUSCULAR HEMOGLOBIN 25.6 PG (27.0-31.0); MEAN PLATELET VOLUME 8.7 FL (7.4-10.4); WHITE BLOOD COUNT 17.3 X10'3 (4.5-11.0)
[2021-12-07 11:54] LABS: BASOPHILS % (AUTO) 0.1 % (0-1); EOSINOPHILS % (AUTO) 0 % (0-6); LYMPHOCYTES # (AUTO) 0.4 X10'3 (1.1-4.8); LYMPHOCYTES % (AUTO) 2.2 % (21-51); MEAN CORPUSCULAR HGB CONC 30.6 g/dL (33.0-36.5); MEAN CORPUSCULAR VOLUME 83.8 FL (78-98); MONOCYTES # (AUTO) 0.7 X10'3 (0-0.9); MONOCYTES % (AUTO) 3.9 % (2-12); NEUTROPHILS # (AUTO) 16.2 X10'3 (1.8-7.7); NEUTROPHILS % (AUTO) 93.8 % (42-75); PLATELET COUNT 345 X10'3 (140-440); RED CELL DISTRIBUTION WIDTH 18.7 % (11.5-14.5)
[2021-12-07] MEDS ORDERED: vancomycin/NS 1 GM ADD-VANTAGE 250 ML IV ONE (12:10)
[2021-12-07] MEDS ORDERED: vancomycin/NS 1 GM ADD-VANTAGE 250 ML IV PRN (12:10)
[2021-12-07] MEDS: cefepime 1GM/NS ADD-VANTAGE 100 ML IV SCH (12:11)
[2021-12-07 12:15] LABS: APTT 32 SECONDS (22-32)
[2021-12-07] MEDS: heparin 10,000 units/1 ML INJ IV PRN ×3 (12:27→23:06)
[2021-12-07 13:10] LABS: ANION GAP 13 (8-16); BILIRUBIN,TOTAL 0.6 MG/DL (0.1-1.0); BLOOD UREA NITROGEN 53 MG/DL (7-18); BUN/CREATININE RATIO 8.4 (5.4-32.0); CALCIUM 8.3 MG/DL (8.5-10.1); CHLORIDE 104 MMOL/L (99-107); GLUCOSE 315 MG/DL (70-104); POTASSIUM 5.1 MMOL/L (3.5-5.1); SODIUM 140 MMOL/L (135-145); TOTAL CARBON DIOXIDE 22.7 MMOL/L (24-32); TOTAL PROTEIN 7.9 G/DL (6.4-8.2); eGFR 12 ML/MIN
[2021-12-07 13:11] LABS: ALANINE AMINOTRANSFERASE 74 U/L (12-78); ALBUMIN 2.6 G/DL (3.4-5.0); ALBUMIN/GLOBULIN RATIO 0.5 (1.1-1.5); ALKALINE PHOSPHATASE 83 IU/L (46-116); ASPARTATE AMINO TRANSFERASE 61 U/L (10-37)
[2021-12-07] MEDS: Duosol 4K/3 Ca (w/calcium) 5,000 ML HE SCH ×14 (13:13→23:23)
[2021-12-07] MEDS ORDERED: amiodarone 150mg/dext, iso-os 100 ML IV ONE ×2 (14:40)
[2021-12-07] MEDS ORDERED: amiodarone/D5 360MG/200ML BAG 200 ML IV SCH (14:40)
[2021-12-07] MEDS: amiodarone/D5 360MG/200ML BAG 200 ML IV SCH ×2 (14:59→20:32)
[2021-12-07] MEDS: diltiazem 30mg tablet OGT SCH ×2 (16:16→22:09)
[2021-12-07 17:04] LABS: BASOPHILS % (AUTO) 0.1 % (0-1); EOSINOPHILS % (AUTO) 0.2 % (0-6); HEMATOCRIT 33.1 % (42.0-52.0); HEMOGLOBIN 10.2 g/dl (14.0-17.9); LYMPHOCYTES # (AUTO) 0.4 X10'3 (1.1-4.8); LYMPHOCYTES % (AUTO) 2.1 % (21-51); MEAN CORPUSCULAR HEMOGLOBIN 25.5 PG (27.0-31.0); MEAN CORPUSCULAR HGB CONC 30.8 g/dL (33.0-36.5); MEAN CORPUSCULAR VOLUME 82.8 FL (78-98); MEAN PLATELET VOLUME 8.5 FL (7.4-10.4); MONOCYTES # (AUTO) 0.9 X10'3 (0-0.9); MONOCYTES % (AUTO) 5.1 % (2-12); NEUTROPHILS % (AUTO) 92.5 % (42-75); PLATELET COUNT 316 X10'3 (140-440); WHITE BLOOD COUNT 18.4 X10'3 (4.5-11.0)
[2021-12-07 17:07] LABS: ALBUMIN 2.6 G/DL (3.4-5.0); ANION GAP 11 (8-16); BLOOD UREA NITROGEN 46 MG/DL (7-18); BUN/CREATININE RATIO 8.5 (5.4-32.0); CHLORIDE 103 MMOL/L (99-107); CREATININE 5.44 MG/DL (0.60-1.10); GLUCOSE 244 MG/DL (70-104); MAGNESIUM 1.9 MG/DL (1.5-2.4); PHOSPHORUS 6.6 MG/DL (2.3-4.5); POTASSIUM 4.9 MMOL/L (3.5-5.1); SODIUM 138 MMOL/L (135-145); TOTAL CARBON DIOXIDE 24.1 MMOL/L (24-32); eGFR 14 ML/MIN
[2021-12-07 17:11] LABS: ABG BASE EXCESS -9.7 mmol/L (-2.0-2.0); ABG HCO3 21.9 mmol/L (22.0-26.0); ABG OXYGEN SATURATION 88.4 % (94-97); ABG PCO2 (T) 83.6 mmHg (35.0-48.0); ABG PO2 (T) 59.3 mmHg (75.0-100.0); FCOHb 0.3 % (0.0-3.9); FMetHb 0.5 % (0.0-1.5); FO2Hb 87.7 % (94-97); PEEP 24 cm H2O; RESPIRATORY RATE 25 b/min; TIDAL VOLUME 400 mL; TOTAL HEMOGLOBIN 11.5 G/dl (14.0-18.0)
--- NOTE | 2021-12-07 18:05 | NUR ---
Patient sedated on Fentanyl & Propofol gtts with BIS in 30's -40's. Nimbex gtt for paralytic. Train of 4 0/4. Nimbex titrated down to 0.3 mcg/kg/min. Patient began coughing so increased to 0.5 with good effect. Patient went into atrial fib. Loaded with Amiodarone & gtt started. Continues to alternate between afib & SR. Levophed gtt on for BP support. Lungs coarse. Sats slowly climbed into 90's but CO2 remains high in 80's. Able to wean FiO2 to 95%. PEEP remains at 24. Decrease in amount of ETT secretions. Dark bile from OGT. Started on CRRT to remove fluid. Pt anuric. Remained in prone position throughout shift d/t instability of oxygenation.
--- NOTE | 2021-12-07 18:19 | NUR ---
Problems reprioritized. Patient report given, questions answered & plan of care reviewed with Jhony LA.
[2021-12-07] MEDS: insulin glargine (Lantus) pen - multi-dose SQ SCH (20:39)
[2021-12-07] MEDS: mineral oil/petrolatum ophthal oint EACHEYE SCH (20:42)
[2021-12-07 22:12] LABS: ALBUMIN 2.6 G/DL (3.4-5.0); ANION GAP 10 (8-16); BLOOD UREA NITROGEN 41 MG/DL (7-18); BUN/CREATININE RATIO 8.4 (5.4-32.0); CHLORIDE 103 MMOL/L (99-107); CREATININE 4.87 MG/DL (0.60-1.10); GLUCOSE 201 MG/DL (70-104); MAGNESIUM 1.8 MG/DL (1.5-2.4); PHOSPHORUS 6.3 MG/DL (2.3-4.5); SODIUM 139 MMOL/L (135-145); TOTAL CARBON DIOXIDE 26.4 MMOL/L (24-32); eGFR 16 ML/MIN
--- NOTE | 2021-12-07 22:49 | NUR ---
getting a train of four of 0, however patient was observed trying to lift his head and arms while prone. nimbex was then turned up.
[2021-12-08] VITALS (35 sets, daily range): BP systolic 106–161; BP diastolic 45–72
[2021-12-08] MEDS: Duosol 4K/3 Ca (w/calcium) 5,000 ML HE SCH ×23 (00:12→23:10)
[2021-12-08] MEDS: mineral oil/petrolatum ophthal oint EACHEYE SCH ×4 (02:00→20:40)
[2021-12-08] MEDS: diltiazem 30mg tablet OGT SCH ×4 (02:00→20:48)
[2021-12-08] MEDS: propofol 1000mg/100ml bottle 100 ML IV SCH ×5 (02:11→21:51)
[2021-12-08] MEDS: CISatracurium besylate inj. 100 MG in normal saline 100ml IV soln 90 ML IV PRN ×4 (02:40→20:59)
[2021-12-08] MEDS: methylPREDNISolone sod succ 125mg/2ml vial IV SCH ×4 (02:42→20:18)
[2021-12-08] MEDS: ipratropium/albuterol 3ml nebule NEB SCH ×6 (02:44→22:45)
[2021-12-08] MEDS: insulin Lispro (HumaLOG) vial - multi-dose SQ SCH ×2 (02:52→21:40)
[2021-12-08 02:59] LABS: ABG BASE EXCESS -8.1 mmol/L (-2.0-2.0); ABG HCO3 22.4 mmol/L (22.0-26.0); ABG OXYGEN SATURATION 94.5 % (94-97); ABG PCO2 (T) 73.9 mmHg (35.0-48.0); ABG PO2 (T) 73.9 mmHg (75.0-100.0); FCOHb 0.3 % (0.0-3.9); FMetHb 0.3 % (0.0-1.5); FO2Hb 93.9 % (94-97); PATIENT TEMPERATURE 36.7; PEEP 24 cm H2O; RESPIRATORY RATE 25 b/min; TIDAL VOLUME 400 mL; TOTAL HEMOGLOBIN 11.2 G/dl (14.0-18.0)
[2021-12-08] MEDS: VANCOMYCIN LEVEL IV SCH (03:00)
[2021-12-08 04:02] LABS: BASOPHILS % (AUTO) 0.2 % (0-1); EOSINOPHILS % (AUTO) 0 % (0-6); HEMOGLOBIN 9.8 g/dl (14.0-17.9); LYMPHOCYTES # (AUTO) 0.3 X10'3 (1.1-4.8); LYMPHOCYTES % (AUTO) 2.4 % (21-51); MEAN CORPUSCULAR HEMOGLOBIN 25.8 PG (27.0-31.0); MEAN CORPUSCULAR HGB CONC 31.6 g/dL (33.0-36.5); MEAN CORPUSCULAR VOLUME 81.6 FL (78-98); MEAN PLATELET VOLUME 8.6 FL (7.4-10.4); MONOCYTES % (AUTO) 6.7 % (2-12); NEUTROPHILS # (AUTO) 13.1 X10'3 (1.8-7.7); NEUTROPHILS % (AUTO) 90.7 % (42-75); PLATELET COUNT 266 X10'3 (140-440); RED CELL DISTRIBUTION WIDTH 18.9 % (11.5-14.5); WHITE BLOOD COUNT 14.5 X10'3 (4.5-11.0)
[2021-12-08 04:09] LABS: ALANINE AMINOTRANSFERASE 72 U/L (12-78); ALBUMIN 2.4 G/DL (3.4-5.0); ALBUMIN/GLOBULIN RATIO 0.4 (1.1-1.5); ALKALINE PHOSPHATASE 98 IU/L (46-116); ANION GAP 11 (8-16); ASPARTATE AMINO TRANSFERASE 45 U/L (10-37); BILIRUBIN,TOTAL 0.6 MG/DL (0.1-1.0); BLOOD UREA NITROGEN 36 MG/DL (7-18); BUN/CREATININE RATIO 8.4 (5.4-32.0); CHLORIDE 102 MMOL/L (99-107); CREATININE 4.27 MG/DL (0.60-1.10); GLUCOSE 178 MG/DL (70-104); SODIUM 138 MMOL/L (135-145); TOTAL CARBON DIOXIDE 25.5 MMOL/L (24-32); TOTAL PROTEIN 8.1 G/DL (6.4-8.2); eGFR 18 ML/MIN
[2021-12-08 04:10] LABS: BILIRUBIN,DIRECT 0.2 MG/DL (0-0.3); MAGNESIUM 1.8 MG/DL (1.5-2.4); PHOSPHORUS 5.8 MG/DL (2.3-4.5); VANCOMYCIN,RANDOM 6.8 UG/ML
[2021-12-08] MEDS ORDERED: sodium bicarbonate (8.4%) 1 mEq/ml syringe IV ONE (05:05)
--- NOTE | 2021-12-08 05:05 | NUR ---
dr hammond notified of critical blood gas. he said to give two amps bicarb and recheck abg a 10 am
[2021-12-08] MEDS: heparin 10,000 units/1 ML INJ IV PRN ×2 (05:32→11:04)
[2021-12-08] MEDS: heparin 25,000 UNIT/250ml bag 250 ML IV SCH ×2 (05:33→10:57)
[2021-12-08 06:36] LABS: ANISOCYTOSIS 2+; MICROCYTOSIS 1+; PLATELET ESTIMATE NORMAL
[2021-12-08 06:37] LABS: POIKILOCYTOSIS FEW
[2021-12-08] MEDS: FENTANYL-0.9 % NACL/PF 100 ML IV PRN ×3 (07:12→20:38)
[2021-12-08] MEDS: amiodarone/D5 360MG/200ML BAG 200 ML IV SCH ×3 (07:54→18:52)
[2021-12-08] MEDS: K, MAG and/or Phos replacement - Verify level? MC SCH (08:00)
[2021-12-08] MEDS: hydrALAZINE 25 MG tablet PO SCH ×2 (08:00→15:35)
[2021-12-08] MEDS: LIRAGLUTIDE 0.6 MG/0.1 ML PEN.INJCTR SQ SCH (08:00)
[2021-12-08] MEDS: clopidogrel 75mg tablet PO SCH (08:18)
[2021-12-08] MEDS: multivitamins, therapeutics tablet PO SCH (08:19)
[2021-12-08] MEDS: pantoprazole 40MG/NS 100ML BAG 100 ML IV SCH (08:19)
[2021-12-08] MEDS: NORepinephrine inj. 32 MG in normal saline 250ml IV soln 218 ML IV SCH (09:27)
[2021-12-08] MEDS ORDERED: vancomycin/NS 1 GM ADD-VANTAGE 250 ML IV ONE (09:45)
[2021-12-08 10:29] LABS: BASOPHILS % (AUTO) 0.1 % (0-1); EOSINOPHILS % (AUTO) 0.1 % (0-6); HEMATOCRIT 30.7 % (42.0-52.0); HEMOGLOBIN 9.5 g/dl (14.0-17.9); LYMPHOCYTES # (AUTO) 0.3 X10'3 (1.1-4.8); LYMPHOCYTES % (AUTO) 2.3 % (21-51); MEAN CORPUSCULAR HEMOGLOBIN 25.3 PG (27.0-31.0); MEAN CORPUSCULAR VOLUME 81.8 FL (78-98); MEAN PLATELET VOLUME 8.7 FL (7.4-10.4); MONOCYTES # (AUTO) 1.1 X10'3 (0-0.9); MONOCYTES % (AUTO) 8.9 % (2-12); NEUTROPHILS # (AUTO) 10.5 X10'3 (1.8-7.7); NEUTROPHILS % (AUTO) 88.6 % (42-75); PLATELET COUNT 268 X10'3 (140-440); RED BLOOD COUNT 3.75 X10'6 (4.70-6.10); RED CELL DISTRIBUTION WIDTH 18.6 % (11.5-14.5); WHITE BLOOD COUNT 11.8 X10'3 (4.5-11.0)
[2021-12-08 10:48] LABS: ALBUMIN 2.4 G/DL (3.4-5.0); ANION GAP 12 (8-16); BLOOD UREA NITROGEN 32 MG/DL (7-18); BUN/CREATININE RATIO 8.6 (5.4-32.0); CHLORIDE 101 MMOL/L (99-107); CREATININE 3.71 MG/DL (0.60-1.10); GLUCOSE 168 MG/DL (70-104); MAGNESIUM 1.8 MG/DL (1.5-2.4); PHOSPHORUS 5.2 MG/DL (2.3-4.5); POTASSIUM 4.8 MMOL/L (3.5-5.1); SODIUM 138 MMOL/L (135-145); TOTAL CARBON DIOXIDE 25.3 MMOL/L (24-32); eGFR 21 ML/MIN
[2021-12-08] MEDS: cefepime 1GM/NS ADD-VANTAGE 100 ML IV SCH (12:46)
[2021-12-08] MEDS: furosemide inj 1,000 MG in normal saline 250ml IV soln 150 ML IV SCH (14:10)
[2021-12-08] MEDS ORDERED: digoxin 250mcg/ml 2ml ampule IV ONE ×2 (14:20→20:30)
[2021-12-08] MEDS ORDERED: digoxin 250mcg/ml 2ml ampule IV SCH (14:20)
[2021-12-08] MEDS: HEPARIN SOD,PORK IN 0.45% NACL 250 ML IV SCH ×2 (14:52→23:16)
[2021-12-08 15:51] LABS: ABG BASE EXCESS -3.7 mmol/L (-2.0-2.0); ABG HCO3 26.3 mmol/L (22.0-26.0); ABG OXYGEN SATURATION 93.9 % (94-97); ABG PCO2 (T) 77.6 mmHg (35.0-48.0); ABG PO2 (T) 72.2 mmHg (75.0-100.0); FCOHb 0.3 % (0.0-3.9); FMetHb 0.4 % (0.0-1.5); FO2Hb 93.2 % (94-97); PATIENT TEMPERATURE 36.8; PEEP 24 cm H2O; RESPIRATORY RATE 25 b/min; TIDAL VOLUME 400 mL; TOTAL HEMOGLOBIN 10.4 G/dl (14.0-18.0)
[2021-12-08 16:06] LABS: BASOPHILS % (AUTO) 0.3 % (0-1); EOSINOPHILS % (AUTO) 0 % (0-6); HEMATOCRIT 29.1 % (42.0-52.0); HEMOGLOBIN 9.3 g/dl (14.0-17.9); LYMPHOCYTES # (AUTO) 0.2 X10'3 (1.1-4.8); LYMPHOCYTES % (AUTO) 1.8 % (21-51); MEAN CORPUSCULAR HGB CONC 31.8 g/dL (33.0-36.5); MEAN CORPUSCULAR VOLUME 81.7 FL (78-98); MEAN PLATELET VOLUME 8.1 FL (7.4-10.4); MONOCYTES # (AUTO) 1.1 X10'3 (0-0.9); MONOCYTES % (AUTO) 9.5 % (2-12); NEUTROPHILS % (AUTO) 88.4 % (42-75); PLATELET COUNT 227 X10'3 (140-440); RED BLOOD COUNT 3.57 X10'6 (4.70-6.10); WHITE BLOOD COUNT 11.3 X10'3 (4.5-11.0)
[2021-12-08 16:36] LABS: ALBUMIN 2.4 G/DL (3.4-5.0); ANION GAP 10 (8-16); BLOOD UREA NITROGEN 31 MG/DL (7-18); BUN/CREATININE RATIO 8.6 (5.4-32.0); CHLORIDE 102 MMOL/L (99-107); CREATININE 3.61 MG/DL (0.60-1.10); GLUCOSE 180 MG/DL (70-104); MAGNESIUM 1.8 MG/DL (1.5-2.4); PHOSPHORUS 4.9 MG/DL (2.3-4.5); SODIUM 139 MMOL/L (135-145); TOTAL CARBON DIOXIDE 26.7 MMOL/L (24-32); eGFR 22 ML/MIN
[2021-12-08] MEDS: insulin glargine (Lantus) pen - multi-dose SQ SCH (21:42)
[2021-12-08 21:56] LABS: BASOPHILS % (AUTO) 0.3 % (0-1); EOSINOPHILS % (AUTO) 0 % (0-6); HEMATOCRIT 28.8 % (42.0-52.0); HEMOGLOBIN 9.1 g/dl (14.0-17.9); LYMPHOCYTES # (AUTO) 0.2 X10'3 (1.1-4.8); LYMPHOCYTES % (AUTO) 2.3 % (21-51); MEAN CORPUSCULAR HGB CONC 31.6 g/dL (33.0-36.5); MEAN CORPUSCULAR VOLUME 82.3 FL (78-98); MEAN PLATELET VOLUME 8.7 FL (7.4-10.4); MONOCYTES # (AUTO) 0.5 X10'3 (0-0.9); MONOCYTES % (AUTO) 6.8 % (2-12); NEUTROPHILS # (AUTO) 6.8 X10'3 (1.8-7.7); NEUTROPHILS % (AUTO) 90.6 % (42-75); PLATELET COUNT 201 X10'3 (140-440); WHITE BLOOD COUNT 7.5 X10'3 (4.5-11.0)
[2021-12-08 22:16] LABS: ALBUMIN 2.4 G/DL (3.4-5.0); ANION GAP 11 (8-16); BLOOD UREA NITROGEN 29 MG/DL (7-18); BUN/CREATININE RATIO 8.9 (5.4-32.0); CHLORIDE 102 MMOL/L (99-107); CREATININE 3.25 MG/DL (0.60-1.10); GLUCOSE 151 MG/DL (70-104); MAGNESIUM 1.9 MG/DL (1.5-2.4); PHOSPHORUS 4.2 MG/DL (2.3-4.5); SODIUM 138 MMOL/L (135-145); TOTAL CARBON DIOXIDE 24.7 MMOL/L (24-32); eGFR 25 ML/MIN
[2021-12-09] VITALS (36 sets, daily range): BP systolic 105–228; BP diastolic 54–94
[2021-12-09] MEDS: CISatracurium besylate inj. 100 MG in normal saline 100ml IV soln 90 ML IV PRN ×4 (01:11→20:56)
[2021-12-09] MEDS: mineral oil/petrolatum ophthal oint EACHEYE SCH ×4 (02:00→19:36)
[2021-12-09] MEDS: FENTANYL-0.9 % NACL/PF 100 ML IV PRN ×4 (02:33→16:20)
[2021-12-09] MEDS: ipratropium/albuterol 3ml nebule NEB SCH ×6 (02:42→22:35)
[2021-12-09] MEDS: methylPREDNISolone sod succ 125mg/2ml vial IV SCH ×4 (02:53→19:45)
[2021-12-09] MEDS: diltiazem 30mg tablet OGT SCH ×4 (02:54→19:38)
[2021-12-09 02:57] LABS: ABG BASE EXCESS -2.5 mmol/L (-2.0-2.0); ABG HCO3 24.2 mmol/L (22.0-26.0); ABG OXYGEN SATURATION 98.6 % (94-97); ABG PCO2 (T) 50.1 mmHg (35.0-48.0); ABG PO2 (T) 125.2 mmHg (75.0-100.0); FCOHb 0.3 % (0.0-3.9); FMetHb 0.4 % (0.0-1.5); FO2Hb 97.9 % (94-97); PATIENT TEMPERATURE 36.3; PEEP 14 cm H2O; RESPIRATORY RATE 25 b/min; TIDAL VOLUME 400 mL; TOTAL HEMOGLOBIN 9.5 G/dl (14.0-18.0)
[2021-12-09] MEDS: VANCOMYCIN LEVEL IV SCH (03:00)
[2021-12-09] MEDS: Duosol 4K/3 Ca (w/calcium) 5,000 ML HE SCH ×10 (03:33→21:01)
[2021-12-09] MEDS: amiodarone/D5 360MG/200ML BAG 200 ML IV SCH ×4 (03:39→18:46)
[2021-12-09 03:49] LABS: BASOPHILS % (AUTO) 0.3 % (0-1); EOSINOPHILS % (AUTO) 0 % (0-6); HEMATOCRIT 27.5 % (42.0-52.0); HEMOGLOBIN 8.7 g/dl (14.0-17.9); LYMPHOCYTES # (AUTO) 0.2 X10'3 (1.1-4.8); LYMPHOCYTES % (AUTO) 3.2 % (21-51); MEAN CORPUSCULAR HEMOGLOBIN 25.7 PG (27.0-31.0); MEAN CORPUSCULAR HGB CONC 31.6 g/dL (33.0-36.5); MEAN CORPUSCULAR VOLUME 81.4 FL (78-98); MEAN PLATELET VOLUME 8.4 FL (7.4-10.4); MONOCYTES # (AUTO) 0.5 X10'3 (0-0.9); MONOCYTES % (AUTO) 7.9 % (2-12); NEUTROPHILS # (AUTO) 5.7 X10'3 (1.8-7.7); NEUTROPHILS % (AUTO) 88.6 % (42-75); PLATELET COUNT 183 X10'3 (140-440); RED BLOOD COUNT 3.38 X10'6 (4.70-6.10); RED CELL DISTRIBUTION WIDTH 18.8 % (11.5-14.5); WHITE BLOOD COUNT 6.5 X10'3 (4.5-11.0)
[2021-12-09 03:50] LABS: ALANINE AMINOTRANSFERASE 59 U/L (12-78); ALBUMIN 2.2 G/DL (3.4-5.0); ALBUMIN/GLOBULIN RATIO 0.4 (1.1-1.5); ALKALINE PHOSPHATASE 85 IU/L (46-116); ANION GAP 10 (8-16); ASPARTATE AMINO TRANSFERASE 30 U/L (10-37); BILIRUBIN,TOTAL 0.4 MG/DL (0.1-1.0); BLOOD UREA NITROGEN 28 MG/DL (7-18); BUN/CREATININE RATIO 9.5 (5.4-32.0); CHLORIDE 101 MMOL/L (99-107); CREATININE 2.96 MG/DL (0.60-1.10); GLUCOSE 137 MG/DL (70-104); POTASSIUM 4.4 MMOL/L (3.5-5.1); SODIUM 137 MMOL/L (135-145); TOTAL CARBON DIOXIDE 26.3 MMOL/L (24-32); TOTAL PROTEIN 7.9 G/DL (6.4-8.2); eGFR 28 ML/MIN
[2021-12-09 03:54] LABS: BILIRUBIN,DIRECT 0.1 MG/DL (0-0.3); MAGNESIUM 1.8 MG/DL (1.5-2.4); VANCOMYCIN,RANDOM 7.8 UG/ML
[2021-12-09] MEDS: propofol 1000mg/100ml bottle 100 ML IV SCH ×7 (04:23→21:57)
[2021-12-09] MEDS ORDERED: digoxin 250mcg/ml 2ml ampule IV ONE (04:30)
[2021-12-09 05:23] LABS: PLATELET ESTIMATE NORMAL
[2021-12-09 05:24] LABS: ANISOCYTOSIS 2+; TARGET CELLS FEW
--- NOTE | 2021-12-09 06:39 | NUR ---
Patient in room CICU 2007. I have received report from BESSIE Booker and had the opportunity to ask questions and assume patient care.
[2021-12-09] MEDS: K, MAG and/or Phos replacement - Verify level? MC SCH (07:15)
[2021-12-09 07:32] LABS: ABG BASE EXCESS -1.2 mmol/L (-2.0-2.0); ABG HCO3 25.1 mmol/L (22.0-26.0); ABG OXYGEN SATURATION 97.9 % (94-97); ABG PCO2 (T) 47.2 mmHg (35.0-48.0); ABG PO2 (T) 96.9 mmHg (75.0-100.0); FCOHb 0.3 % (0.0-3.9); FMetHb 0.1 % (0.0-1.5); FO2Hb 97.5 % (94-97); PATIENT TEMPERATURE 35.7; PEEP 10 cm H2O; RESPIRATORY RATE 25 b/min; TIDAL VOLUME 400 mL; TOTAL HEMOGLOBIN 9.3 G/dl (14.0-18.0)
[2021-12-09] MEDS: levoFLOXACIN-Levaquin 250mg/D5 50 ML IV SCH (07:45)
[2021-12-09] MEDS: pantoprazole 40MG/NS 100ML BAG 100 ML IV SCH (07:45)
[2021-12-09] MEDS: multivitamins, therapeutics tablet PO SCH (07:47)
[2021-12-09] MEDS: clopidogrel 75mg tablet PO SCH (07:47)
[2021-12-09] MEDS: hydrALAZINE 25 MG tablet PO SCH ×4 (07:47→23:08)
[2021-12-09] MEDS: insulin Lispro (HumaLOG) vial - multi-dose SQ SCH ×3 (09:01→19:46)
[2021-12-09] MEDS: HEPARIN SOD,PORK IN 0.45% NACL 250 ML IV SCH ×2 (09:09→18:10)
--- NOTE | 2021-12-09 10:21 | NUR ---
Dr. Rodriguez rounded on the patient and stated that he would like us to continue with the titration of the PEEP by 2 Q2H as tolerated by patient until a peep of [address] Rodriguez would also like us to supine the patient to see how he does.
[2021-12-09] MEDS ORDERED: vancomycin/NS 1 GM ADD-VANTAGE 250 ML IV ONE (10:30)
[2021-12-09 11:45] LABS: BASOPHILS % (AUTO) 0.5 % (0-1); EOSINOPHILS % (AUTO) 0.1 % (0-6); HEMATOCRIT 26.2 % (42.0-52.0); HEMOGLOBIN 8.4 g/dl (14.0-17.9); LYMPHOCYTES # (AUTO) 0.2 X10'3 (1.1-4.8); LYMPHOCYTES % (AUTO) 3.2 % (21-51); MEAN CORPUSCULAR HEMOGLOBIN 25.8 PG (27.0-31.0); MEAN CORPUSCULAR HGB CONC 31.9 g/dL (33.0-36.5); MEAN CORPUSCULAR VOLUME 80.7 FL (78-98); MEAN PLATELET VOLUME 8.8 FL (7.4-10.4); MONOCYTES # (AUTO) 0.5 X10'3 (0-0.9); MONOCYTES % (AUTO) 7.1 % (2-12); NEUTROPHILS # (AUTO) 5.8 X10'3 (1.8-7.7); NEUTROPHILS % (AUTO) 89.1 % (42-75); PLATELET COUNT 178 X10'3 (140-440); RED BLOOD COUNT 3.25 X10'6 (4.70-6.10); RED CELL DISTRIBUTION WIDTH 18.5 % (11.5-14.5); WHITE BLOOD COUNT 6.5 X10'3 (4.5-11.0)
[2021-12-09] MEDS: hydrALAZINE 20mg/ml inj. IV PRN ×2 (11:51→19:01)
[2021-12-09] MEDS ORDERED: diltiazem 5mg/ml 5ml inj. IV ONE ×2 (11:54→11:55)
[2021-12-09] MEDS ORDERED: labetalol 20mg/4ml (5mg/ml) syringe IV PRN (11:55)
[2021-12-09] MEDS: diltiazem-NS 100mg/100ml 100 ML IV SCH ×3 (11:55→22:01)
[2021-12-09] MEDS: cefepime 1GM/NS ADD-VANTAGE 100 ML IV SCH (11:57)
[2021-12-09] MEDS ORDERED: labetalol 20mg/4ml (5mg/ml) syringe IV ONE (11:59)
--- NOTE | 2021-12-09 12:00 | NUR ---
Patient was supined at 1100. Patient was prepped and with x7 people present to help, patient was flipped. Patient tolerated okay. Saturation dropped into the low 80s and was placed on 100% FiO2 and a PEEP if 14. About 20 minutes after turning supine patient heart rate was up into the 170s and SBP as high as 220. Patient was given ordered PRN Hydralazine and then Dr. Rodriguez was called who ordered Cardizem and Labetalol.
[2021-12-09 12:02] LABS: ALBUMIN 2.2 G/DL (3.4-5.0); ANION GAP 13 (8-16); BLOOD UREA NITROGEN 27 MG/DL (7-18); BUN/CREATININE RATIO 10.2 (5.4-32.0); CHLORIDE 100 MMOL/L (99-107); CREATININE 2.64 MG/DL (0.60-1.10); GLUCOSE 146 MG/DL (70-104); MAGNESIUM 1.7 MG/DL (1.5-2.4); POTASSIUM 4.2 MMOL/L (3.5-5.1); SODIUM 137 MMOL/L (135-145); TOTAL CARBON DIOXIDE 24.1 MMOL/L (24-32); eGFR 32 ML/MIN
--- NOTE | 2021-12-09 13:24 | NUR ---
With everything on board patient SBP in the 180s-190s and HR in the 110s-120s.
[2021-12-09] MEDS: labetalol 20mg/4ml (5mg/ml) syringe IV PRN ×3 (13:50→23:08)
--- NOTE | 2021-12-09 14:38 | NUR ---
Patients blood pressure keeps dropping with a SBP of 80-90. Cardizem titrated down to 5 however, BP still dropping. Will turn Cardizem off and assess how his blood pressure responds and then contact Dr. Rodriguez
[2021-12-09 16:26] LABS: HEMATOCRIT 26.2 % (42.0-52.0); MEAN CORPUSCULAR HGB CONC 31.9 g/dL (33.0-36.5)
[2021-12-09 16:28] LABS: BASOPHILS % (AUTO) 0.1 % (0-1); EOSINOPHILS % (AUTO) 0 % (0-6); HEMOGLOBIN 8.3 g/dl (14.0-17.9); LYMPHOCYTES # (AUTO) 0.2 X10'3 (1.1-4.8); LYMPHOCYTES % (AUTO) 2.7 % (21-51); MEAN CORPUSCULAR HEMOGLOBIN 25.8 PG (27.0-31.0); MEAN CORPUSCULAR VOLUME 80.9 FL (78-98); MEAN PLATELET VOLUME 8.1 FL (7.4-10.4); MONOCYTES # (AUTO) 0.5 X10'3 (0-0.9); MONOCYTES % (AUTO) 6.4 % (2-12); NEUTROPHILS # (AUTO) 6.9 X10'3 (1.8-7.7); NEUTROPHILS % (AUTO) 90.8 % (42-75); PLATELET COUNT 199 X10'3 (140-440); RED BLOOD COUNT 3.23 X10'6 (4.70-6.10); RED CELL DISTRIBUTION WIDTH 18.6 % (11.5-14.5); WHITE BLOOD COUNT 7.6 X10'3 (4.5-11.0)
[2021-12-09 16:34] LABS: ALBUMIN 1.9 G/DL (3.4-5.0); ANION GAP 9 (8-16); BLOOD UREA NITROGEN 26 MG/DL (7-18); BUN/CREATININE RATIO 10.4 (5.4-32.0); CHLORIDE 101 MMOL/L (99-107); CREATININE 2.51 MG/DL (0.60-1.10); GLUCOSE 166 MG/DL (70-104); MAGNESIUM 1.8 MG/DL (1.5-2.4); POTASSIUM 4.3 MMOL/L (3.5-5.1); SODIUM 137 MMOL/L (135-145); TOTAL CARBON DIOXIDE 26.6 MMOL/L (24-32); eGFR 34 ML/MIN
[2021-12-09 16:35] LABS: ABG BASE EXCESS -4.3 mmol/L (-2.0-2.0); ABG HCO3 22.2 mmol/L (22.0-26.0); ABG PCO2 (T) 46.3 mmHg (35.0-48.0); ABG PO2 (T) 62.3 mmHg (75.0-100.0); FCOHb 0.3 % (0.0-3.9); FMetHb 0.3 % (0.0-1.5); FO2Hb 90.5 % (94-97); PATIENT TEMPERATURE 36.4; PEEP 14 cm H2O; RESPIRATORY RATE 25 b/min; TIDAL VOLUME 400 mL; TOTAL HEMOGLOBIN 9.2 G/dl (14.0-18.0)
--- NOTE | 2021-12-09 17:00 | NUR ---
Based on new ABG Dr. Rodriguez would like to start a prone/supine schedule. 18 hours prone and 6 hours supine, starting with prone now.
--- NOTE | 2021-12-09 17:24 | NUR ---
Patient was proned with x6 staff members. Patient tolerated proning well.
--- NOTE | 2021-12-09 18:00 | NUR ---
Patient in room CICU 2008. I have received report from Yamila and had the opportunity to ask questions and assume patient care.
--- NOTE | 2021-12-09 18:18 | NUR ---
Problems reprioritized. Patient report given, questions answered & plan of care reviewed with BESSIE Godinez.
--- NOTE | 2021-12-09 19:36 | NUR ---
wishes pt to be prone and no swimmers position changes. Thus I will be unable to do a full physical exam of his front side and may not be able to give his lacrilube.
[2021-12-09] MEDS: insulin glargine (Lantus) pen - multi-dose SQ SCH (19:47)
[2021-12-09 21:48] LABS: BASOPHILS % (AUTO) 0.2 % (0-1); EOSINOPHILS % (AUTO) 0 % (0-6); HEMATOCRIT 26.3 % (42.0-52.0); HEMOGLOBIN 8.5 g/dl (14.0-17.9); LYMPHOCYTES # (AUTO) 0.2 X10'3 (1.1-4.8); LYMPHOCYTES % (AUTO) 2.8 % (21-51); MEAN CORPUSCULAR HGB CONC 32.2 g/dL (33.0-36.5); MEAN CORPUSCULAR VOLUME 80.6 FL (78-98); MEAN PLATELET VOLUME 7.9 FL (7.4-10.4); MONOCYTES # (AUTO) 0.4 X10'3 (0-0.9); MONOCYTES % (AUTO) 5.5 % (2-12); NEUTROPHILS # (AUTO) 6.8 X10'3 (1.8-7.7); NEUTROPHILS % (AUTO) 91.5 % (42-75); PLATELET COUNT 193 X10'3 (140-440); RED BLOOD COUNT 3.26 X10'6 (4.70-6.10); RED CELL DISTRIBUTION WIDTH 18.4 % (11.5-14.5); WHITE BLOOD COUNT 7.5 X10'3 (4.5-11.0)
[2021-12-09] MEDS: fentaNYL/NS/PF 2,500 mcg/250mL 250 ML IV PRN (21:57)
[2021-12-09 22:02] LABS: ALBUMIN 2.1 G/DL (3.4-5.0); ANION GAP 8 (8-16); BLOOD UREA NITROGEN 27 MG/DL (7-18); BUN/CREATININE RATIO 10.9 (5.4-32.0); CHLORIDE 102 MMOL/L (99-107); CREATININE 2.47 MG/DL (0.60-1.10); GLUCOSE 142 MG/DL (70-104); MAGNESIUM 1.9 MG/DL (1.5-2.4); PHOSPHORUS 2.9 MG/DL (2.3-4.5); POTASSIUM 4.4 MMOL/L (3.5-5.1); SODIUM 137 MMOL/L (135-145); TOTAL CARBON DIOXIDE 26.6 MMOL/L (24-32); eGFR 34 ML/MIN
[2021-12-09 22:11] LABS: ANISOCYTOSIS 2+; MICROCYTOSIS 0; NUCLEATED RED BLOOD CELLS 1 /100WBC (0-0); PLATELET ESTIMATE NORMAL; TOTAL CELLS COUNTED 100
--- NOTE | 2021-12-09 22:57 | NUR ---
FiO2 weaned back down to 40% while maintaining sats of 100% , starting to wean PEEP now. Pt's HR was well controlled staying less than 100 the majority of the time but with any sort of patient care it jumps back up to the 120s despite having BiS score of 30-40. Amio at 0.5mg/min and cardizem maxed at 20mg/hr. Still giving PRN labetolol and hydralazine to keep SBP < 160. Attempting to do good oral care but due to patient's position and the MDs not wanting us to move him at all it's difficult to safely clean, will keep using chg swabs to do what I can though. Shifting hips q2hr with pillows. Legs elevated on pillows.
[2021-12-10] VITALS (35 sets, daily range): BP systolic 77–195; BP diastolic 36–97
[2021-12-10] MEDS: CISatracurium besylate inj. 100 MG in normal saline 100ml IV soln 90 ML IV PRN ×6 (00:12→23:25)
[2021-12-10] MEDS: hydrALAZINE 20mg/ml inj. IV PRN ×2 (00:54→15:53)
[2021-12-10] MEDS: labetalol 20mg/4ml (5mg/ml) syringe IV PRN ×2 (01:01→16:36)
[2021-12-10] MEDS: propofol 1000mg/100ml bottle 100 ML IV SCH ×8 (01:11→21:57)
[2021-12-10] MEDS: Duosol 4K/3 Ca (w/calcium) 5,000 ML HE SCH ×15 (01:34→23:02)
[2021-12-10] MEDS: insulin Lispro (HumaLOG) vial - multi-dose SQ SCH ×4 (01:53→21:50)
[2021-12-10] MEDS: mineral oil/petrolatum ophthal oint EACHEYE SCH ×4 (01:54→20:24)
[2021-12-10] MEDS: diltiazem 30mg tablet OGT SCH (01:54)
[2021-12-10] MEDS: diltiazem-NS 100mg/100ml 100 ML IV SCH ×4 (02:05→19:45)
[2021-12-10] MEDS: methylPREDNISolone sod succ 125mg/2ml vial IV SCH ×4 (02:09→20:41)
[2021-12-10] MEDS: ipratropium/albuterol 3ml nebule NEB SCH ×6 (02:36→22:37)
[2021-12-10] MEDS: HEPARIN SOD,PORK IN 0.45% NACL 250 ML IV SCH ×3 (02:43→20:04)
[2021-12-10 02:54] LABS: ABG BASE EXCESS -1.2 mmol/L (-2.0-2.0); ABG HCO3 25.5 mmol/L (22.0-26.0); ABG OXYGEN SATURATION 98.2 % (94-97); ABG PCO2 (T) 51.5 mmHg (35.0-48.0); ABG PO2 (T) 118.5 mmHg (75.0-100.0); FCOHb 0.3 % (0.0-3.9); FMetHb 0.5 % (0.0-1.5); FO2Hb 97.4 % (94-97); PATIENT TEMPERATURE 36.7; PEEP 12 cm H2O; RESPIRATORY RATE 25 b/min; TIDAL VOLUME 400 mL; TOTAL HEMOGLOBIN 9.5 G/dl (14.0-18.0)
[2021-12-10] MEDS: VANCOMYCIN LEVEL IV SCH (03:00)
[2021-12-10] MEDS: amiodarone/D5 360MG/200ML BAG 200 ML IV SCH ×4 (03:19→21:31)
[2021-12-10 03:23] LABS: APTT 47 SECONDS (22-32)
[2021-12-10 03:28] LABS: ALANINE AMINOTRANSFERASE 49 U/L (12-78); ALBUMIN 2.2 G/DL (3.4-5.0); ALBUMIN/GLOBULIN RATIO 0.4 (1.1-1.5); ALKALINE PHOSPHATASE 78 IU/L (46-116); ANION GAP 11 (8-16); ASPARTATE AMINO TRANSFERASE 23 U/L (10-37); BILIRUBIN,TOTAL 0.4 MG/DL (0.1-1.0); BLOOD UREA NITROGEN 27 MG/DL (7-18); BUN/CREATININE RATIO 11.7 (5.4-32.0); CALCIUM 9.2 MG/DL (8.5-10.1); CHLORIDE 100 MMOL/L (99-107); CREATININE 2.31 MG/DL (0.60-1.10); GLUCOSE 165 MG/DL (70-104); MAGNESIUM 1.9 MG/DL (1.5-2.4); PHOSPHORUS 2.8 MG/DL (2.3-4.5); POTASSIUM 4.4 MMOL/L (3.5-5.1); SODIUM 137 MMOL/L (135-145); TOTAL PROTEIN 7.3 G/DL (6.4-8.2); VANCOMYCIN,RANDOM 9.4 UG/ML; eGFR 37 ML/MIN
[2021-12-10 03:29] LABS: BASOPHILS % (AUTO) 0 % (0-1); EOSINOPHILS % (AUTO) 0 % (0-6); HEMOGLOBIN 8.6 g/dl (14.0-17.9); LYMPHOCYTES # (AUTO) 0.2 X10'3 (1.1-4.8); LYMPHOCYTES % (AUTO) 2.7 % (21-51); MEAN CORPUSCULAR HEMOGLOBIN 25.7 PG (27.0-31.0); MEAN CORPUSCULAR HGB CONC 31.9 g/dL (33.0-36.5); MEAN CORPUSCULAR VOLUME 80.6 FL (78-98); MEAN PLATELET VOLUME 8.3 FL (7.4-10.4); MONOCYTES # (AUTO) 0.5 X10'3 (0-0.9); MONOCYTES % (AUTO) 6.2 % (2-12); NEUTROPHILS # (AUTO) 6.9 X10'3 (1.8-7.7); NEUTROPHILS % (AUTO) 91.1 % (42-75); PLATELET COUNT 197 X10'3 (140-440); RED BLOOD COUNT 3.35 X10'6 (4.70-6.10); RED CELL DISTRIBUTION WIDTH 18.6 % (11.5-14.5); WHITE BLOOD COUNT 7.6 X10'3 (4.5-11.0)
--- NOTE | 2021-12-10 06:30 | NUR ---
Patient in room CICU 2007. I have received report from Herbert LA and had the opportunity to ask questions and assume patient care.
[2021-12-10] MEDS ORDERED: vancomycin/NS 1 GM ADD-VANTAGE 250 ML IV ONE (07:35)
[2021-12-10] MEDS: K, MAG and/or Phos replacement - Verify level? MC SCH (08:00)
[2021-12-10] MEDS: pantoprazole 40MG/NS 100ML BAG 100 ML IV SCH (08:42)
[2021-12-10] MEDS: multivitamins, therapeutics tablet PO SCH (08:44)
[2021-12-10] MEDS: clopidogrel 75mg tablet PO SCH (08:44)
[2021-12-10 09:19] LABS: APTT 45 SECONDS (22-32); BASOPHILS % (AUTO) 0 % (0-1); EOSINOPHILS % (AUTO) 0 % (0-6); HEMATOCRIT 25.3 % (42.0-52.0); HEMOGLOBIN 8.1 g/dl (14.0-17.9); LYMPHOCYTES # (AUTO) 0.5 X10'3 (1.1-4.8); LYMPHOCYTES % (AUTO) 6.8 % (21-51); MEAN CORPUSCULAR HEMOGLOBIN 25.8 PG (27.0-31.0); MEAN CORPUSCULAR HGB CONC 32.1 g/dL (33.0-36.5); MEAN CORPUSCULAR VOLUME 80.3 FL (78-98); MEAN PLATELET VOLUME 8.3 FL (7.4-10.4); MONOCYTES # (AUTO) 0.7 X10'3 (0-0.9); MONOCYTES % (AUTO) 8.4 % (2-12); NEUTROPHILS # (AUTO) 6.9 X10'3 (1.8-7.7); NEUTROPHILS % (AUTO) 84.8 % (42-75); PLATELET COUNT 200 X10'3 (140-440); RED BLOOD COUNT 3.15 X10'6 (4.70-6.10); RED CELL DISTRIBUTION WIDTH 18.3 % (11.5-14.5); WHITE BLOOD COUNT 8.1 X10'3 (4.5-11.0)
[2021-12-10] MEDS: fentaNYL/NS/PF 2,500 mcg/250mL 250 ML IV PRN ×2 (09:22→20:18)
[2021-12-10 09:29] LABS: ALBUMIN 2.1 G/DL (3.4-5.0); ANION GAP 10 (8-16); BLOOD UREA NITROGEN 27 MG/DL (7-18); CHLORIDE 102 MMOL/L (99-107); CREATININE 2.25 MG/DL (0.60-1.10); GLUCOSE 137 MG/DL (70-104); MAGNESIUM 1.8 MG/DL (1.5-2.4); PHOSPHORUS 2.6 MG/DL (2.3-4.5); POTASSIUM 4.2 MMOL/L (3.5-5.1); SODIUM 137 MMOL/L (135-145); TOTAL CARBON DIOXIDE 25.5 MMOL/L (24-32); eGFR 38 ML/MIN
[2021-12-10] MEDS ORDERED: DEXTROSE 15 GM of carb/4 tabs (each vial/BOTTLE has 4 tablets) OGT PRN ×2 (12:10→12:11)
[2021-12-10] MEDS ORDERED: acetaminophen 325mg/10.15ml oral unit dose solution OGT PRN (12:10)
[2021-12-10] MEDS ORDERED: Neutra Phos packet OGT PRN (12:12)
[2021-12-10] MEDS ORDERED: ondansetron 4mg/5ml UD cup OGT PRN (12:12)
[2021-12-10] MEDS ORDERED: temazepam 15mg capsule OGT PRN (12:13)
--- NOTE | 2021-12-10 12:13 | NUR ---
TF Consult: Pt remains intubated DX ARDS, septic shock, and KENDRA on CVVH per EMR. OGTF to start today per MD. Noted pt receiving Propofol at 31.68ml/hr during rounds this AM providing additional 836 kcals/day. TF recs below adjusted for CVVH and Propofol; able to meet 91% estimated protein needs without overfeeding at this time given current Propofol rate. No BM this admit 6 days w/ bowel regimen to start today per MD. Will monitor for EN tolerance and further adjustment needs. Rec: 1. Continuous TF per MD using Vital HP at 80ml/hr goal; to provide 1920ml volume/day, 1920 kcals, 1605ml water, and 168g protein 2. IF pt off Propofol; adjust EN to Vital HP at 100ml/hr goal would provide 2400ml volume/day, 2400 kcals, 2006ml water, and 210g protein. 3. no additional water flush given CVVH 4. PALB Q /; daily wts 5. monitor for EN tolerance and adjustment needs given Propofol 6. routine bowel care Addendum: 12/10/21 at [address] Amended: Links added.
[2021-12-10] MEDS: cefepime 1GM/NS ADD-VANTAGE 100 ML IV SCH (12:45)
--- NOTE | 2021-12-10 13:30 | NUR ---
CVVH taken down by coating supervisor in preparation for supination of patient and filter needed to be changed. CVVH back up at 1435
[2021-12-10] MEDS: carvedilol 6.25mg tablet PO SCH ×2 (15:04→20:00)
[2021-12-10 15:08] LABS: BASOPHILS % (AUTO) 0.3 % (0-1); EOSINOPHILS % (AUTO) 0.1 % (0-6); HEMATOCRIT 26.6 % (42.0-52.0); HEMOGLOBIN 8.6 g/dl (14.0-17.9); LYMPHOCYTES # (AUTO) 0.6 X10'3 (1.1-4.8); LYMPHOCYTES % (AUTO) 6.8 % (21-51); MEAN CORPUSCULAR HEMOGLOBIN 26.2 PG (27.0-31.0); MEAN CORPUSCULAR HGB CONC 32.4 g/dL (33.0-36.5); MEAN CORPUSCULAR VOLUME 80.9 FL (78-98); MONOCYTES # (AUTO) 0.6 X10'3 (0-0.9); MONOCYTES % (AUTO) 6.2 % (2-12); NEUTROPHILS % (AUTO) 86.6 % (42-75); PLATELET COUNT 216 X10'3 (140-440); RED BLOOD COUNT 3.29 X10'6 (4.70-6.10); RED CELL DISTRIBUTION WIDTH 18.6 % (11.5-14.5); WHITE BLOOD COUNT 9.2 X10'3 (4.5-11.0)
[2021-12-10 15:16] LABS: APTT 42 SECONDS (22-32)
[2021-12-10 15:20] LABS: ALBUMIN 2.3 G/DL (3.4-5.0); ANION GAP 12 (8-16); BLOOD UREA NITROGEN 30 MG/DL (7-18); CHLORIDE 100 MMOL/L (99-107); CREATININE 2.31 MG/DL (0.60-1.10); GLUCOSE 189 MG/DL (70-104); POTASSIUM 4.3 MMOL/L (3.5-5.1); SODIUM 136 MMOL/L (135-145); eGFR 37 ML/MIN
[2021-12-10] MEDS: hydrALAZINE 25 MG tablet OGT SCH (15:45)
--- NOTE | 2021-12-10 15:45 | NUR ---
[address] Zamudio hold dose
--- NOTE | 2021-12-10 18:40 | NUR ---
I have received report and assumed care of a 46 year old male, admitted 12/04/21 for intermitted fever with flank pain. Pt has a history of Pulmonary Hypertension, asthma, COPD, Hypertension , PVD, and Afib. diabetic, currently on CVVH and intubated. Levophed in place to keep MAP grater then 65, cartizem and amiodarone drip in place for arrhythmia control, Nimbex in place to assist in pt resisting ventilation, heprin drip per md orders.
--- NOTE | 2021-12-10 18:43 | NUR ---
Problems reprioritized. Patient report given, questions answered & plan of care reviewed with Alecia LA.
--- NOTE | 2021-12-10 18:44 | NUR ---
cvvh went down, stop CVVH per Dr. Edouard if the filter goes down
[2021-12-10] MEDS ORDERED: heparin 1,000 units/ml 10ml inj HE ONE ×2 (19:30)
[2021-12-10] MEDS ORDERED: NORepinephrine inj. 32 MG in normal saline 250ml IV soln 218 ML IV SCH (19:35)
[2021-12-10] MEDS: docusate sodium 100mg/10ml UD cup OGT SCH (20:41)
[2021-12-10] MEDS: insulin glargine (Lantus) pen - multi-dose SQ SCH (21:49)
[2021-12-11] VITALS (36 sets, daily range): BP systolic 19–172; BP diastolic 45–80
[2021-12-11] MEDS: hydrALAZINE 25 MG tablet OGT SCH ×3 (00:01→15:10)
[2021-12-11] MEDS: Duosol 4K/3 Ca (w/calcium) 5,000 ML HE SCH ×10 (00:08→10:02)
[2021-12-11] MEDS: propofol 1000mg/100ml bottle 100 ML IV SCH ×8 (01:04→21:40)
[2021-12-11] MEDS: amiodarone/D5 360MG/200ML BAG 200 ML IV SCH ×4 (01:05→21:47)
[2021-12-11] MEDS: diltiazem-NS 100mg/100ml 100 ML IV SCH ×5 (01:05→20:45)
[2021-12-11] MEDS: methylPREDNISolone sod succ 125mg/2ml vial IV SCH ×4 (02:21→21:42)
[2021-12-11] MEDS: mineral oil/petrolatum ophthal oint EACHEYE SCH ×4 (02:21→20:00)
[2021-12-11] MEDS: insulin Lispro (HumaLOG) vial - multi-dose SQ SCH (02:23)
[2021-12-11 02:40] LABS: BASOPHILS % (AUTO) 0.1 % (0-1); EOSINOPHILS % (AUTO) 0 % (0-6); HEMATOCRIT 24.6 % (42.0-52.0); HEMOGLOBIN 7.9 g/dl (14.0-17.9); LYMPHOCYTES # (AUTO) 0.4 X10'3 (1.1-4.8); LYMPHOCYTES % (AUTO) 5.6 % (21-51); MEAN CORPUSCULAR HGB CONC 32.2 g/dL (33.0-36.5); MEAN CORPUSCULAR VOLUME 80.6 FL (78-98); MEAN PLATELET VOLUME 7.9 FL (7.4-10.4); MONOCYTES # (AUTO) 0.7 X10'3 (0-0.9); MONOCYTES % (AUTO) 8.6 % (2-12); NEUTROPHILS # (AUTO) 6.9 X10'3 (1.8-7.7); NEUTROPHILS % (AUTO) 85.7 % (42-75); PLATELET COUNT 187 X10'3 (140-440); RED BLOOD COUNT 3.05 X10'6 (4.70-6.10); RED CELL DISTRIBUTION WIDTH 18.3 % (11.5-14.5); WHITE BLOOD COUNT 8.1 X10'3 (4.5-11.0)
[2021-12-11] MEDS: ipratropium/albuterol 3ml nebule NEB SCH ×6 (02:45→23:33)
[2021-12-11 02:46] LABS: APTT 49 SECONDS (22-32)
[2021-12-11 03:00] LABS: ALANINE AMINOTRANSFERASE 41 U/L (12-78); ALBUMIN 2.1 G/DL (3.4-5.0); ALBUMIN/GLOBULIN RATIO 0.5 (1.1-1.5); ALKALINE PHOSPHATASE 67 IU/L (46-116); ANION GAP 10 (8-16); ASPARTATE AMINO TRANSFERASE 15 U/L (10-37); BILIRUBIN,DIRECT 0.1 MG/DL (0-0.3); BILIRUBIN,TOTAL 0.3 MG/DL (0.1-1.0); BLOOD UREA NITROGEN 42 MG/DL (7-18); BUN/CREATININE RATIO 13.5 (5.4-32.0); CALCIUM 8.7 MG/DL (8.5-10.1); CHLORIDE 101 MMOL/L (99-107); GLUCOSE 152 MG/DL (70-104); MAGNESIUM 2.2 MG/DL (1.5-2.4); POTASSIUM 4.4 MMOL/L (3.5-5.1); SODIUM 136 MMOL/L (135-145); TOTAL CARBON DIOXIDE 25.5 MMOL/L (24-32); TOTAL PROTEIN 6.6 G/DL (6.4-8.2); VANCOMYCIN,RANDOM 6.3 UG/ML; eGFR 26 ML/MIN
[2021-12-11 03:04] LABS: ABG HCO3 26.4 mmol/L (22.0-26.0); ABG OXYGEN SATURATION 93.1 % (94-97); ABG PCO2 (T) 46.6 mmHg (35.0-48.0); ABG PO2 (T) 69.7 mmHg (75.0-100.0); FCOHb 0.3 % (0.0-3.9); FMetHb 0.2 % (0.0-1.5); FO2Hb 92.6 % (94-97); PATIENT TEMPERATURE 37.3; PEEP 10 cm H2O; RESPIRATORY RATE 25 b/min; TIDAL VOLUME 400 mL; TOTAL HEMOGLOBIN 7.7 G/dl (14.0-18.0)
[2021-12-11] MEDS: VANCOMYCIN LEVEL IV SCH (03:25)
--- NOTE | 2021-12-11 03:31 | NUR ---
HS cares complete, pt goes into a rapid AFIB with a rate in the 160's, sbp greater then 160 with minimal tactile stimulation, will minimize stimuli as much as possible,
[2021-12-11] MEDS: CISatracurium besylate inj. 100 MG in normal saline 100ml IV soln 90 ML IV PRN ×2 (03:53→08:44)
[2021-12-11] MEDS: fentaNYL/NS/PF 2,500 mcg/250mL 250 ML IV PRN ×2 (03:53→19:13)
--- NOTE | 2021-12-11 06:13 | NUR ---
report given to rec rn plan of care reviewed
--- NOTE | 2021-12-11 06:30 | NUR ---
Patient in room CICU 2007. I have received report from Alecia LA and had the opportunity to ask questions and assume patient care.
[2021-12-11] MEDS: K, MAG and/or Phos replacement - Verify level? MC SCH (08:00)
[2021-12-11] MEDS: carvedilol 6.25mg tablet PO SCH ×2 (08:07→21:42)
[2021-12-11] MEDS: docusate sodium 100mg/10ml UD cup OGT SCH ×2 (08:08→21:43)
[2021-12-11] MEDS: MULTIVIT-MIN/FERROUS GLUCONATE 9 MG/15 ML LIQUID OGT SCH (08:08)
[2021-12-11] MEDS: clopidogrel 75mg tablet OGT SCH (08:08)
[2021-12-11] MEDS: levoFLOXACIN-Levaquin 250mg/D5 50 ML IV SCH (08:09)
[2021-12-11] MEDS: pantoprazole 40MG/NS 100ML BAG 100 ML IV SCH (08:09)
[2021-12-11] MEDS ORDERED: vancomycin/NS 1 GM ADD-VANTAGE 250 ML IV ONE (08:15)
[2021-12-11] MEDS: insulin regular, human U-100 3ml vial - multi-dose SQ SCH ×3 (09:08→22:01)
[2021-12-11] MEDS ORDERED: acetylcysteine 200 MG/ml 4ml vial INH ONE ×2 (09:10)
[2021-12-11 11:22] LABS: APTT 45 SECONDS (22-32)
[2021-12-11] MEDS ORDERED: methylnaltrexone br 12mg/0.6ml inj***SubQ only SQ PRN (11:43)
[2021-12-11] MEDS: cefepime 1GM/NS ADD-VANTAGE 100 ML IV SCH (12:54)
[2021-12-11] MEDS: calcium acetate 667mg (PhosLO) capsule PO SCH ×2 (15:07→17:31)
[2021-12-11 16:03] LABS: APTT 26 SECONDS (22-32)
[2021-12-11] MEDS: heparin 10,000 units/1 ML INJ IV PRN (17:06)
--- NOTE | 2021-12-11 17:16 | NUR ---
called Dr Zamudio regarding patients heparin gtt, he stated to keep the heparin drip going and we will switch to elquis at a later date
[2021-12-11] MEDS: HEPARIN SOD,PORK IN 0.45% NACL 250 ML IV SCH (18:06)
--- NOTE | 2021-12-11 18:40 | NUR ---
I have received report and assumed care of pt, pt resting in bed, rise and fall of chest cavity equile and symmetrical, Levophed drip in place to keep sbp greater then 100. Pt facial grimaces with as cares, moves head from side to side with oral cares.
[2021-12-11] MEDS ORDERED: NORepinephrine inj. 32 MG in normal saline 250ml IV soln 218 ML IV SCH (20:45)
--- NOTE | 2021-12-11 21:12 | NUR ---
hs cares complete pt tolerated well, hydrophilic dressing to sacral area, side to side continues turning pillows in place to off load pressure. pt does not open eyes to command, does lightly squeeze hands
[2021-12-11] MEDS: insulin glargine (Lantus) pen - multi-dose SQ SCH (22:00)
[2021-12-11 22:17] LABS: APTT 46 SECONDS (22-32)
[2021-12-12] VITALS (35 sets, daily range): BP systolic 91–162; BP diastolic 51–86
[2021-12-12] MEDS: amiodarone/D5 360MG/200ML BAG 200 ML IV SCH ×3 (01:32→15:59)
[2021-12-12] MEDS: propofol 1000mg/100ml bottle 100 ML IV SCH ×9 (01:33→22:09)
[2021-12-12] MEDS: diltiazem-NS 100mg/100ml 100 ML IV SCH (01:45)
--- NOTE | 2021-12-12 02:10 | NUR ---
spoke to daniel NEGRON regarding high residues, orders to not increase tube feeding at this time.
[2021-12-12] MEDS: ipratropium/albuterol 3ml nebule NEB SCH ×5 (02:31→19:11)
[2021-12-12] MEDS: methylPREDNISolone sod succ 125mg/2ml vial IV SCH ×4 (02:33→22:09)
[2021-12-12] MEDS: insulin regular, human U-100 3ml vial - multi-dose SQ SCH ×2 (02:35→09:16)
[2021-12-12] MEDS: mineral oil/petrolatum ophthal oint EACHEYE SCH ×4 (02:36→20:00)
[2021-12-12 02:49] LABS: ABG BASE EXCESS -4.4 mmol/L (-2.0-2.0); ABG HCO3 20.7 mmol/L (22.0-26.0); ABG OXYGEN SATURATION 95.7 % (94-97); ABG PCO2 (T) 37.8 mmHg (35.0-48.0); ABG PO2 (T) 84.5 mmHg (75.0-100.0); FCOHb 0.3 % (0.0-3.9); FMetHb 0.5 % (0.0-1.5); FO2Hb 94.9 % (94-97); PATIENT TEMPERATURE 36.9; PEEP 10 cm H2O; RESPIRATORY RATE 25 b/min; TIDAL VOLUME 400 mL; TOTAL HEMOGLOBIN 8.5 G/dl (14.0-18.0)
[2021-12-12] MEDS: HEPARIN SOD,PORK IN 0.45% NACL 250 ML IV SCH (02:50)
[2021-12-12 02:59] LABS: APTT 45 SECONDS (22-32)
[2021-12-12] MEDS: VANCOMYCIN LEVEL IV SCH (03:05)
[2021-12-12 03:09] LABS: ALANINE AMINOTRANSFERASE 32 U/L (12-78); ALBUMIN 1.9 G/DL (3.4-5.0); ALBUMIN/GLOBULIN RATIO 0.4 (1.1-1.5); ALKALINE PHOSPHATASE 58 IU/L (46-116); ANION GAP 12 (8-16); ASPARTATE AMINO TRANSFERASE 12 U/L (10-37); BILIRUBIN,TOTAL 0.3 MG/DL (0.1-1.0); BLOOD UREA NITROGEN 72 MG/DL (7-18); BUN/CREATININE RATIO 14.5 (5.4-32.0); CALCIUM 8.4 MG/DL (8.5-10.1); CHLORIDE 100 MMOL/L (99-107); CREATININE 4.98 MG/DL (0.60-1.10); GLUCOSE 127 MG/DL (70-104); POTASSIUM 4.4 MMOL/L (3.5-5.1); SODIUM 135 MMOL/L (135-145); TOTAL CARBON DIOXIDE 22.8 MMOL/L (24-32); TOTAL PROTEIN 6.6 G/DL (6.4-8.2); VANCOMYCIN,RANDOM 14.8 UG/ML; eGFR 15 ML/MIN
[2021-12-12 03:28] LABS: FERRITIN 337 NG/ML (26-388)
[2021-12-12 04:04] LABS: % IRON SATURATION 29 % (11-46); IRON 52 UG/DL (53-167); TOTAL IRON BINDING CAPACITY 180 UG/DL (259-388)
[2021-12-12] MEDS: fentaNYL/NS/PF 2,500 mcg/250mL 250 ML IV PRN ×2 (05:07→16:40)
[2021-12-12] MEDS: calcium acetate 667mg (PhosLO) capsule PO SCH ×3 (07:32→17:29)
[2021-12-12] MEDS: clopidogrel 75mg tablet OGT SCH (07:33)
[2021-12-12] MEDS: MULTIVIT-MIN/FERROUS GLUCONATE 9 MG/15 ML LIQUID OGT SCH (07:42)
[2021-12-12] MEDS: docusate sodium 100mg/10ml UD cup OGT SCH ×2 (07:42→20:00)
[2021-12-12] MEDS: pantoprazole 40MG/NS 100ML BAG 100 ML IV SCH (07:42)
[2021-12-12] MEDS ORDERED: EPOETIN ALFA-EPBX 20,000 UNIT/ML 1 ML MDV IV ONE (08:00)
[2021-12-12] MEDS ORDERED: albumin (human) 25% 100ml IV 100 ML IV PRN (08:00)
[2021-12-12] MEDS: hydrALAZINE 25 MG tablet OGT SCH ×3 (08:00→16:00)
[2021-12-12] MEDS ORDERED: heparin 1,000 units/ml 10ml inj IV ONE (08:00)
[2021-12-12] MEDS ORDERED: heparin 1,000unit/ml 10ml vial 10 ML IV ONE (08:00)
[2021-12-12] MEDS: K, MAG and/or Phos replacement - Verify level? MC SCH (08:00)
[2021-12-12] MEDS: carvedilol 6.25mg tablet PO SCH ×2 (08:00→20:00)
[2021-12-12] MEDS ORDERED: heparin 1,000 units/ml 10ml inj HE ONE ×2 (08:00)
[2021-12-12] MEDS ORDERED: vancomycin/NS 1 GM ADD-VANTAGE 250 ML IV ONE (10:00)
[2021-12-12] MEDS ORDERED: temazepam 15mg capsule PO PRN (10:50)
[2021-12-12] MEDS: DOBUTamine-DoBUTrex 500mg/D5W 250 ML IV SCH (10:50)
[2021-12-12 10:51] LABS: BASOPHILS % (AUTO) 0.2 % (0-1); EOSINOPHILS # (AUTO) 0.2 X10'3 (0-0.9); EOSINOPHILS % (AUTO) 1.1 % (0-6); HEMATOCRIT 24.3 % (42.0-52.0); HEMOGLOBIN 7.9 g/dl (14.0-17.9); LYMPHOCYTES # (AUTO) 1.1 X10'3 (1.1-4.8); LYMPHOCYTES % (AUTO) 7.9 % (21-51); MEAN CORPUSCULAR HEMOGLOBIN 25.6 PG (27.0-31.0); MEAN CORPUSCULAR HGB CONC 32.5 g/dL (33.0-36.5); MEAN CORPUSCULAR VOLUME 78.9 FL (78-98); MEAN PLATELET VOLUME 7.9 FL (7.4-10.4); MONOCYTES # (AUTO) 1.2 X10'3 (0-0.9); MONOCYTES % (AUTO) 9.2 % (2-12); NEUTROPHILS # (AUTO) 11.1 X10'3 (1.8-7.7); NEUTROPHILS % (AUTO) 81.6 % (42-75); PLATELET COUNT 216 X10'3 (140-440); RED BLOOD COUNT 3.08 X10'6 (4.70-6.10); RED CELL DISTRIBUTION WIDTH 18.2 % (11.5-14.5); WHITE BLOOD COUNT 13.6 X10'3 (4.5-11.0)
[2021-12-12] MEDS ORDERED: rocuronium 10mg/ml inj IV ONE (11:45)
--- NOTE | 2021-12-12 11:45 | NUR ---
Tube feeding off during SHANNON. Dr. Zamudio performing at bedside with RN, RT, biomedical engineering technologist.
[2021-12-12] MEDS: magnesium hydroxide 30ml (MOM) UD suspension PO SCH ×3 (12:30→21:30)
--- NOTE | 2021-12-12 14:32 | NUR ---
Shift note I supervised Geovanna LA today.I have reviewed her documentation and agree with it as documented up [id number]. I reported off to Yamila LA who assumed pt care.
--- NOTE | 2021-12-12 14:55 | NUR ---
Pt's blood glucose is 117, pt's tube feed has been off since 1200. No insulin coverage required at this time per correctional tool policy.
[2021-12-12] MEDS: methylnaltrexone br 12mg/0.6ml inj***SubQ only SQ SCH (15:49)
[2021-12-12] MEDS: cefepime 1GM/NS ADD-VANTAGE 100 ML IV SCH (15:53)
--- NOTE | 2021-12-12 16:58 | NUR ---
Dr. Zamudio stated that he would like an OGT placed 6 hours post SHANNON. Currently patient is agitated and sedation is being titrated up. Heart rate is in the 130s-150s. Dr. Zamudio okay's waiting on placing an OGT. He also gave the okay to hold off on sedation vacation at this time.
--- NOTE | 2021-12-12 18:19 | NUR ---
Problems reprioritized. Patient report given, questions answered & plan of care reviewed with BESSIE Keith.
[2021-12-12] MEDS: insulin glargine (Lantus) pen - multi-dose SQ SCH (21:00)
[2021-12-13] VITALS (32 sets, daily range): BP systolic 87–153; BP diastolic 51–98
[2021-12-13] MEDS: ipratropium/albuterol 3ml nebule NEB SCH ×7 (00:07→23:22)
[2021-12-13] MEDS: amiodarone/D5 360MG/200ML BAG 200 ML IV SCH ×4 (00:07→23:41)
[2021-12-13] MEDS: fentaNYL/NS/PF 2,500 mcg/250mL 250 ML IV PRN (00:08)
[2021-12-13] MEDS: propofol 1000mg/100ml bottle 100 ML IV SCH ×3 (00:08→06:53)
[2021-12-13] MEDS: mineral oil/petrolatum ophthal oint EACHEYE SCH ×4 (02:00→20:35)
[2021-12-13 02:43] LABS: ABG BASE EXCESS -0.3 mmol/L (-2.0-2.0); ABG HCO3 24.4 mmol/L (22.0-26.0); ABG OXYGEN SATURATION 94.5 % (94-97); ABG PO2 (T) 73.2 mmHg (75.0-100.0); ALLEN'S TEST POSITIVE; FCOHb 0.3 % (0.0-3.9); FMetHb 0.3 % (0.0-1.5); FO2Hb 93.9 % (94-97); PEEP 10 cm H2O; RESPIRATORY RATE 25 b/min; TIDAL VOLUME 400 mL; TOTAL HEMOGLOBIN 8.7 G/dl (14.0-18.0)
[2021-12-13] MEDS: VANCOMYCIN LEVEL IV SCH (03:00)
--- NOTE | 2021-12-13 03:00 | NUR ---
Patient in room CICU 2007. I have received report from Inna Lu RN and had the opportunity to ask questions and assume patient care.
[2021-12-13] MEDS: methylPREDNISolone sod succ 125mg/2ml vial IV SCH ×4 (03:27→20:27)
[2021-12-13 03:35] LABS: BASOPHILS % (AUTO) 0.4 % (0-1); EOSINOPHILS # (AUTO) 0.2 X10'3 (0-0.9); EOSINOPHILS % (AUTO) 1.3 % (0-6); HEMATOCRIT 22.8 % (42.0-52.0); HEMOGLOBIN 7.6 g/dl (14.0-17.9); LYMPHOCYTES # (AUTO) 1.8 X10'3 (1.1-4.8); LYMPHOCYTES % (AUTO) 13.7 % (21-51); MEAN CORPUSCULAR HEMOGLOBIN 26.1 PG (27.0-31.0); MEAN CORPUSCULAR HGB CONC 33.3 g/dL (33.0-36.5); MEAN CORPUSCULAR VOLUME 78.1 FL (78-98); MEAN PLATELET VOLUME 8.2 FL (7.4-10.4); MONOCYTES # (AUTO) 1.2 X10'3 (0-0.9); MONOCYTES % (AUTO) 9.3 % (2-12); NEUTROPHILS # (AUTO) 9.6 X10'3 (1.8-7.7); NEUTROPHILS % (AUTO) 75.3 % (42-75); PLATELET COUNT 208 X10'3 (140-440); RED BLOOD COUNT 2.92 X10'6 (4.70-6.10); RED CELL DISTRIBUTION WIDTH 18.2 % (11.5-14.5); WHITE BLOOD COUNT 12.8 X10'3 (4.5-11.0)
[2021-12-13 03:43] LABS: APTT 23 SECONDS (22-32)
[2021-12-13 03:58] LABS: ALANINE AMINOTRANSFERASE 27 U/L (12-78); ALBUMIN 1.8 G/DL (3.4-5.0); ALBUMIN/GLOBULIN RATIO 0.4 (1.1-1.5); ALKALINE PHOSPHATASE 55 IU/L (46-116); ANION GAP 11 (8-16); ASPARTATE AMINO TRANSFERASE 23 U/L (10-37); BILIRUBIN,TOTAL 0.2 MG/DL (0.1-1.0); BLOOD UREA NITROGEN 53 MG/DL (7-18); BUN/CREATININE RATIO 11.7 (5.4-32.0); CALCIUM 7.9 MG/DL (8.5-10.1); CHLORIDE 100 MMOL/L (99-107); CREATININE 4.52 MG/DL (0.60-1.10); GLUCOSE 93 MG/DL (70-104); POTASSIUM 4.2 MMOL/L (3.5-5.1); SODIUM 137 MMOL/L (135-145); VANCOMYCIN,RANDOM 15.6 UG/ML; eGFR 17 ML/MIN
[2021-12-13 04:07] LABS: TOTAL CELLS COUNTED 100
[2021-12-13 04:08] LABS: ANISOCYTOSIS 2+; MICROCYTOSIS 1+; PLATELET ESTIMATE NORMAL; POLYCHROMASIA 1+
[2021-12-13 04:09] LABS: HYPOCHROMASIA 1+
[2021-12-13 04:10] LABS: SMUDGE CELLS 1+
[2021-12-13] MEDS: magnesium hydroxide 30ml (MOM) UD suspension PO SCH ×4 (07:30→21:30)
--- NOTE | 2021-12-13 07:54 | NUR ---
MD Visit Dr. Zamudio to see. Orders received. Pt notified of possible transfer today. Up to bedside commode with NA assistance - min assist needed to commode. Breakfast provided. Addendum: 12/13/21 at 1105 by Lawson Wheeler RN Wrong pt
[2021-12-13] MEDS: K, MAG and/or Phos replacement - Verify level? MC SCH (08:00)
[2021-12-13] MEDS: MULTIVIT-MIN/FERROUS GLUCONATE 9 MG/15 ML LIQUID OGT SCH (08:00)
[2021-12-13] MEDS: hydrALAZINE 25 MG tablet OGT SCH ×3 (08:00→16:00)
[2021-12-13] MEDS: docusate sodium 100mg/10ml UD cup OGT SCH ×2 (08:00→20:00)
[2021-12-13] MEDS: clopidogrel 75mg tablet OGT SCH (08:00)
[2021-12-13] MEDS: pantoprazole 40MG/NS 100ML BAG 100 ML IV SCH (08:04)
[2021-12-13] MEDS: methylnaltrexone br 12mg/0.6ml inj***SubQ only SQ SCH (08:05)
[2021-12-13] MEDS: levoFLOXACIN-Levaquin 250mg/D5 50 ML IV SCH (08:11)
[2021-12-13] MEDS: dexmedetomidin/NS 400mcg/100ml 100 ML IV SCH ×5 (08:13→22:51)
[2021-12-13] MEDS ORDERED: temazepam 15mg capsule OGT PRN (10:09)
--- NOTE | 2021-12-13 11:54 | NUR ---
F/u 12/13: Pt remains intubated previously tolerating TF at goal however OG removed for SHANNON yesterday and not replaced given elevated heart rate on attempts to replace per RN this AM. Pt w/ KENDRA also changed from CVVH to HD. Propofol weaned and plan for extubation w/ CLAIMS SORTER BSS per community organization director at rounds. No BM this admit at least 8 days receiving routine colace and relistor w/ MoM to start however no enteral access; community organization director aware w/ plans to restart bowel regimen following extubation once passes CLAIMS SORTER BSS. TF recs below in case fails BSS. Will monitor for further nutrition intervention needs this admit. Rec: 1. IF pt remains intubated; resume continuous TF per MD using Vital HP and advance to 100ml/hr goal to provide 2400ml volume/day, 2400 kcals, 2006ml water, and 210g protein. 2. IF pt fails CLAIMS SORTER BSS upon extubation; consider NGTF using Vital AF at 80ml/hr goal 3. upon extubation; advance diet as medically indicated to heart healthy 4. routine bowel care; no BM this admit at least 8 days receiving routine opioid antagonist per MD Addendum: 12/13/21 at [address] Amended: Links added.
[2021-12-13] MEDS: calcium acetate 667mg (PhosLO) capsule OGT SCH ×2 (13:00→18:00)
--- NOTE | 2021-12-13 13:45 | NUR ---
WOC WOC RN was here to assist with turning pt. Pt tolerated turning OK. Required suctioning post turning. Continues with significant amount of secretions. Vandana (REYNOLD) at bedside most of the day. Repositioned to comfort.
[2021-12-13] MEDS: insulin regular, human U-100 3ml vial - multi-dose SQ SCH (14:42)
--- NOTE | 2021-12-13 14:48 | NUR ---
PRESSURE ULCER EDUCATION: DEFINITION: A pressure ulcer is an area of skin that breaks down when you stay in one position too long. The constant pressure against the skin reduces the blood flow to that area and the affected tissue dies. CAUSES: "Being bedridden or in a wheelchair "Fragile skin "Having a chronic condition, such as diabetes or vascular disease "Inability to move certain parts of your body without assistance "Older age "Incontinence of urine or stool SYMPTOMS: "A reddened area that DOES NOT turn white when pressed on - this can be the beginning of a pressure ulcer "A blister, deep sore or a crater - these can be advanced pressure ulcers FIRST AID: "Relieve the pressure on this area "Keep the area clean and dry "Call your primary doctor if you see any of the above symptoms "DO NOT massage the area "DO NOT use a donut shaped or ring shaped pillow- these actually interfere with the blood flow and cause complications PREVENTION: "Check for pressure ulcers everyday "Change position at least every two hours to relieve pressure "Use items that help relieve pressure- pillows, sheepskin, foam padding, and powders. "Keep skin clean and dry "Eat healthy well balanced meals "Exercise daily IF YOU SEE ANY OF THESE SYMPTOMS WHILE IN THE HOSPITAL - TELL YOUR NURSE IMMEDIATELY. IF YOU SEE ANY OF THESE SYMPTOMS WHILE AT HOME OR HAVE ANY QUESTIONS OR CONCERNS ABOUT PRESSURE ULCERS - CALL YOUR PRIMARY DOCTOR IMMEDIATELY. Addendum: 12/13/21 at 1448 by Joy Coleman LVN Amended: Links added.
[2021-12-13] MEDS: cefepime 1GM/NS ADD-VANTAGE 100 ML IV SCH (14:59)
--- NOTE | 2021-12-13 17:22 | NUR ---
Turned. Pt turned to left x 30+ minutes resulting in significant, persistent coughing. Sedation increased but unable to control coughing. Pt returned to back and gradually he recovered, stopped coughing. He was repositioned to comfort and gradually improved. Plan is to put pt on SIMV at change of shift allowing him to rest through night and wean tomorrow.
[2021-12-13] MEDS: DOBUTamine-DoBUTrex 500mg/D5W 250 ML IV SCH (17:42)
--- NOTE | 2021-12-13 18:08 | NUR ---
Problems reprioritized. Patient report given, questions answered & plan of care reviewed with Jhony LA.
[2021-12-13] MEDS: carvedilol 6.25mg tablet OGT SCH (20:00)
[2021-12-13] MEDS: insulin glargine (Lantus) pen - multi-dose SQ SCH (21:00)
[2021-12-14] VITALS (34 sets, daily range): BP systolic 105–170; BP diastolic 58–105
[2021-12-14] MEDS: dexmedetomidin/NS 400mcg/100ml 100 ML IV SCH ×7 (01:50→23:14)
[2021-12-14] MEDS: mineral oil/petrolatum ophthal oint EACHEYE SCH ×4 (02:00→20:00)
[2021-12-14] MEDS: VANCOMYCIN LEVEL IV SCH (03:00)
[2021-12-14] MEDS: methylPREDNISolone sod succ 125mg/2ml vial IV SCH ×4 (03:38→21:33)
[2021-12-14 04:02] LABS: ALANINE AMINOTRANSFERASE 26 U/L (12-78); ALBUMIN 1.8 G/DL (3.4-5.0); ALBUMIN/GLOBULIN RATIO 0.4 (1.1-1.5); ALKALINE PHOSPHATASE 65 IU/L (46-116); ANION GAP 13 (8-16); ASPARTATE AMINO TRANSFERASE 13 U/L (10-37); BILIRUBIN,TOTAL 0.2 MG/DL (0.1-1.0); BLOOD UREA NITROGEN 73 MG/DL (7-18); BUN/CREATININE RATIO 11.4 (5.4-32.0); CALCIUM 8.1 MG/DL (8.5-10.1); CHLORIDE 98 MMOL/L (99-107); GLUCOSE 136 MG/DL (70-104); POTASSIUM 4.8 MMOL/L (3.5-5.1); SODIUM 133 MMOL/L (135-145); TOTAL CARBON DIOXIDE 22.5 MMOL/L (24-32); TOTAL PROTEIN 6.1 G/DL (6.4-8.2); TRIGLYCERIDES 350 MG/DL (20-135); VANCOMYCIN,RANDOM 14.6 UG/ML; eGFR 11 ML/MIN
[2021-12-14 04:18] LABS: ABG OXYGEN SATURATION 95.4 % (94-97); ABG PCO2 (T) 36.4 mmHg (35.0-48.0); ABG PO2 (T) 85.2 mmHg (75.0-100.0); ALLEN'S TEST POSITIVE; FCOHb 0.3 % (0.0-3.9); FMetHb 0.5 % (0.0-1.5); FO2Hb 94.6 % (94-97); PEEP 8 cm H2O; RESPIRATORY RATE 20 b/min; TIDAL VOLUME 400 mL; TOTAL HEMOGLOBIN 7.9 G/dl (14.0-18.0)
[2021-12-14 05:57] LABS: MAGNESIUM 2.2 MG/DL (1.5-2.4)
[2021-12-14 05:58] LABS: BASOPHILS % (AUTO) 0.1 % (0-1); EOSINOPHILS % (AUTO) 0.2 % (0-6); HEMATOCRIT 22.4 % (42.0-52.0); HEMOGLOBIN 7.3 g/dl (14.0-17.9); LYMPHOCYTES # (AUTO) 0.7 X10'3 (1.1-4.8); MEAN CORPUSCULAR HEMOGLOBIN 25.9 PG (27.0-31.0); MEAN CORPUSCULAR HGB CONC 32.8 g/dL (33.0-36.5); MEAN CORPUSCULAR VOLUME 78.8 FL (78-98); MEAN PLATELET VOLUME 8.4 FL (7.4-10.4); MONOCYTES # (AUTO) 0.9 X10'3 (0-0.9); MONOCYTES % (AUTO) 8.8 % (2-12); NEUTROPHILS # (AUTO) 8.9 X10'3 (1.8-7.7); NEUTROPHILS % (AUTO) 83.9 % (42-75); PLATELET COUNT 251 X10'3 (140-440); RED BLOOD COUNT 2.84 X10'6 (4.70-6.10); RED CELL DISTRIBUTION WIDTH 18.1 % (11.5-14.5); WHITE BLOOD COUNT 10.7 X10'3 (4.5-11.0)
[2021-12-14 06:16] LABS: ANISOCYTOSIS 2+; HYPOCHROMASIA 1+; MICROCYTOSIS 1+; PLATELET ESTIMATE NORMAL; POLYCHROMASIA 1+; ROULEAUX 1+; TOTAL CELLS COUNTED 100
[2021-12-14] MEDS: ipratropium/albuterol 3ml nebule NEB SCH ×5 (07:03→23:09)
[2021-12-14] MEDS ORDERED: heparin 1,000 units/ml 10ml inj IV ONE (09:20)
[2021-12-14] MEDS ORDERED: EPOETIN ALFA-EPBX 20,000 UNIT/ML 1 ML MDV IV ONE (09:20)
[2021-12-14] MEDS ORDERED: heparin 1,000unit/ml 10ml vial 10 ML IV ONE (09:20)
[2021-12-14] MEDS ORDERED: albumin (human) 25% 100ml IV 100 ML IV PRN (09:20)
[2021-12-14] MEDS ORDERED: heparin 1,000 units/ml 10ml inj HE ONE ×2 (09:25)
[2021-12-14] MEDS: pantoprazole 40MG/NS 100ML BAG 100 ML IV SCH (09:50)
[2021-12-14] MEDS: K, MAG and/or Phos replacement - Verify level? MC SCH (09:52)
[2021-12-14] MEDS: hydrALAZINE 25 MG tablet OGT SCH ×3 (09:52→15:58)
[2021-12-14] MEDS: magnesium hydroxide 30ml (MOM) UD suspension PO SCH ×4 (09:52→21:30)
[2021-12-14] MEDS: carvedilol 6.25mg tablet OGT SCH ×2 (09:53→20:00)
[2021-12-14] MEDS: clopidogrel 75mg tablet OGT SCH (09:53)
[2021-12-14] MEDS: docusate sodium 100mg/10ml UD cup OGT SCH ×2 (09:53→20:00)
[2021-12-14] MEDS: calcium acetate 667mg (PhosLO) capsule OGT SCH ×3 (09:53→17:40)
[2021-12-14] MEDS: MULTIVIT-MIN/FERROUS GLUCONATE 9 MG/15 ML LIQUID OGT SCH (09:53)
--- NOTE | 2021-12-14 10:57 | NUR ---
TF Consult: Pt remains intubated w/ TF to restart at trickle rate first few hours then advanced to goal this afternoon per sprinkling system installer at rounds. TF diet order already active in EMR w/ no changes at this time. Per RN, SO reports LBM 12/06 making 8 days constipation. Pt receiving routine relistor w/ PRN reglan not given and unable to given colace or MoM given no EN access per EMR. Will monitor for TF tolerance and adjustment needs. Rec: 1. Continuous TF per MD using Vital HP at 100ml/hr goal to provide 2400ml volume/day, 2400 kcals, 2006ml water, and 210g protein. 2. IF pt fails VIDEO SURVEILLANCE TECHNICIAN BSS upon extubation; consider NGTF using Vital AF at 80ml/hr goal 3. upon extubation; advance diet as medically indicated to heart healthy 4. routine bowel care; no BM this admit at least 8 days receiving routine opioid antagonist per MD Addendum: 12/14/21 at [address] Amended: Links added.
[2021-12-14] MEDS: amiodarone/D5 360MG/200ML BAG 200 ML IV SCH ×4 (11:32→23:48)
[2021-12-14] MEDS: cefepime 1GM/NS ADD-VANTAGE 100 ML IV SCH (15:53)
[2021-12-14] MEDS ORDERED: vancomycin/NS 1 GM ADD-VANTAGE 250 ML X 1 DOSE IV ONE (17:00)
[2021-12-14] MEDS: hydrALAZINE 20mg/ml inj. IV PRN (18:06)
[2021-12-14] MEDS: insulin glargine (Lantus) pen - multi-dose SQ SCH (21:00)
[2021-12-14] MEDS ORDERED: fentaNYL/PF 50MCG/1 ML 2ML syringe IV ONE (23:45)
[2021-12-15] VITALS (36 sets, daily range): BP systolic 105–185; BP diastolic 53–95
[2021-12-15] MEDS: hydrALAZINE 25 MG tablet OGT SCH ×3 (00:01→15:36)
[2021-12-15] MEDS: methylPREDNISolone sod succ 125mg/2ml vial IV SCH ×4 (02:00→20:00)
[2021-12-15] MEDS: mineral oil/petrolatum ophthal oint EACHEYE SCH ×4 (02:21→20:00)
[2021-12-15] MEDS: VANCOMYCIN LEVEL IV SCH (03:00)
[2021-12-15 03:57] LABS: BASOPHILS % (AUTO) 0.1 % (0-1); EOSINOPHILS % (AUTO) 0.4 % (0-6); HEMOGLOBIN 7.9 g/dl (14.0-17.9); LYMPHOCYTES # (AUTO) 1.1 X10'3 (1.1-4.8); LYMPHOCYTES % (AUTO) 9.2 % (21-51); MEAN CORPUSCULAR HEMOGLOBIN 25.6 PG (27.0-31.0); MEAN CORPUSCULAR HGB CONC 32.8 g/dL (33.0-36.5); MONOCYTES % (AUTO) 8.8 % (2-12); NEUTROPHILS # (AUTO) 9.5 X10'3 (1.8-7.7); NEUTROPHILS % (AUTO) 81.5 % (42-75); PLATELET COUNT 324 X10'3 (140-440); RED BLOOD COUNT 3.08 X10'6 (4.70-6.10); RED CELL DISTRIBUTION WIDTH 18.1 % (11.5-14.5); WHITE BLOOD COUNT 11.6 X10'3 (4.5-11.0)
[2021-12-15 04:11] LABS: ALANINE AMINOTRANSFERASE 26 U/L (12-78); ALBUMIN 1.9 G/DL (3.4-5.0); ALBUMIN/GLOBULIN RATIO 0.4 (1.1-1.5); ALKALINE PHOSPHATASE 54 IU/L (46-116); ANION GAP 15 (8-16); ASPARTATE AMINO TRANSFERASE 10 U/L (10-37); BILIRUBIN,TOTAL 0.3 MG/DL (0.1-1.0); BLOOD UREA NITROGEN 60 MG/DL (7-18); BUN/CREATININE RATIO 10.4 (5.4-32.0); CALCIUM 8.3 MG/DL (8.5-10.1); CHLORIDE 97 MMOL/L (99-107); CREATININE 5.76 MG/DL (0.60-1.10); GLUCOSE 146 MG/DL (70-104); SODIUM 136 MMOL/L (135-145); TOTAL CARBON DIOXIDE 23.9 MMOL/L (24-32); TOTAL PROTEIN 6.4 G/DL (6.4-8.2); VANCOMYCIN,RANDOM 21.3 UG/ML; eGFR 13 ML/MIN
[2021-12-15] MEDS: ipratropium/albuterol 3ml nebule NEB SCH ×6 (04:12→23:29)
[2021-12-15 04:23] LABS: TOTAL CELLS COUNTED 100
[2021-12-15 04:24] LABS: ANISOCYTOSIS 2+; HYPOCHROMASIA 1+; MICROCYTOSIS 1+; PLATELET ESTIMATE NORMAL; ROULEAUX 1+
[2021-12-15 04:33] LABS: ABG BASE EXCESS -2.6 mmol/L (-2.0-2.0); ABG HCO3 21.8 mmol/L (22.0-26.0); ABG OXYGEN SATURATION 95.4 % (94-97); ABG PCO2 (T) 35.6 mmHg (35.0-48.0); ABG PO2 (T) 79.8 mmHg (75.0-100.0); ALLEN'S TEST POSITIVE; FCOHb 0.3 % (0.0-3.9); FMetHb 0.5 % (0.0-1.5); FO2Hb 94.6 % (94-97); PATIENT TEMPERATURE 36.8; PEEP 5 cm H2O; RESPIRATORY RATE 20 b/min; TIDAL VOLUME 400 mL; TOTAL HEMOGLOBIN 8.7 G/dl (14.0-18.0)
[2021-12-15] MEDS: dexmedetomidin/NS 400mcg/100ml 100 ML IV SCH ×3 (05:36→11:06)
[2021-12-15] MEDS: DOBUTamine-DoBUTrex 500mg/D5W 250 ML IV SCH (07:11)
[2021-12-15] MEDS: K, MAG and/or Phos replacement - Verify level? MC SCH (08:00)
[2021-12-15] MEDS: amiodarone/D5 360MG/200ML BAG 200 ML IV SCH ×3 (08:09→16:47)
[2021-12-15] MEDS: clopidogrel 75mg tablet OGT SCH (08:10)
[2021-12-15] MEDS: calcium acetate 667mg (PhosLO) capsule OGT SCH ×3 (08:11→17:29)
[2021-12-15] MEDS: magnesium hydroxide 30ml (MOM) UD suspension PO SCH ×3 (08:11→17:29)
[2021-12-15] MEDS: MULTIVIT-MIN/FERROUS GLUCONATE 9 MG/15 ML LIQUID OGT SCH (08:11)
[2021-12-15] MEDS: carvedilol 6.25mg tablet OGT SCH ×2 (08:11→21:10)
[2021-12-15] MEDS: docusate sodium 100mg/10ml UD cup OGT SCH ×2 (08:11→21:10)
[2021-12-15] MEDS: pantoprazole 40MG/NS 100ML BAG 100 ML IV SCH (08:12)
[2021-12-15] MEDS: levoFLOXACIN-Levaquin 250mg/D5 50 ML IV SCH (08:13)
[2021-12-15] MEDS: cefepime 1GM/NS ADD-VANTAGE 100 ML IV SCH (11:43)
[2021-12-15] MEDS: HYDROmorphone 1 mg/ml syringe IV SCH ×4 (13:44→20:56)
[2021-12-15] MEDS: insulin regular, human U-100 3ml vial - multi-dose SQ SCH (14:09)
[2021-12-15] MEDS: dexmedetomidin/NS 400mcg/100ml 100 ML IV PRN ×3 (16:52→23:08)
[2021-12-15] MEDS: insulin glargine (Lantus) pen - multi-dose SQ SCH (21:00)
[2021-12-15] MEDS: amiodarone 200mg tablet PO SCH (21:10)
[2021-12-16] VITALS (28 sets, daily range): BP systolic 104–197; BP diastolic 42–101
[2021-12-16] MEDS: HYDROmorphone 1 mg/ml syringe IV SCH ×4 (00:32→08:39)
[2021-12-16] MEDS: hydrALAZINE 25 MG tablet OGT SCH ×2 (00:32→08:38)
[2021-12-16] MEDS: VANCOMYCIN LEVEL IV SCH (02:00)
[2021-12-16] MEDS: mineral oil/petrolatum ophthal oint EACHEYE SCH ×4 (02:32→20:00)
[2021-12-16] MEDS: methylPREDNISolone sod succ 125mg/2ml vial IV SCH ×2 (02:40→08:45)
[2021-12-16] MEDS: ipratropium/albuterol 3ml nebule NEB SCH ×6 (03:42→22:46)
[2021-12-16 03:52] LABS: ALANINE AMINOTRANSFERASE 23 U/L (12-78); ALBUMIN 1.9 G/DL (3.4-5.0); ALBUMIN/GLOBULIN RATIO 0.4 (1.1-1.5); ALKALINE PHOSPHATASE 56 IU/L (46-116); ANION GAP 16 (8-16); ASPARTATE AMINO TRANSFERASE 10 U/L (10-37); BILIRUBIN,TOTAL 0.3 MG/DL (0.1-1.0); BLOOD UREA NITROGEN 79 MG/DL (7-18); CALCIUM 8.4 MG/DL (8.5-10.1); CHLORIDE 97 MMOL/L (99-107); CREATININE 7.15 MG/DL (0.60-1.10); GLUCOSE 179 MG/DL (70-104); POTASSIUM 4.4 MMOL/L (3.5-5.1); SODIUM 136 MMOL/L (135-145); TOTAL CARBON DIOXIDE 23.1 MMOL/L (24-32); TOTAL PROTEIN 6.3 G/DL (6.4-8.2); VANCOMYCIN,RANDOM 17.8 UG/ML; eGFR 10 ML/MIN
[2021-12-16 04:06] LABS: ABG BASE EXCESS -3.6 mmol/L (-2.0-2.0); ABG HCO3 21.8 mmol/L (22.0-26.0); ABG OXYGEN SATURATION 94.8 % (94-97); ABG PCO2 (T) 38.3 mmHg (35.0-48.0); ABG PO2 (T) 75.4 mmHg (75.0-100.0); ALLEN'S TEST POSITIVE; FCOHb 0.3 % (0.0-3.9); FMetHb 0.6 % (0.0-1.5); FO2Hb 93.9 % (94-97); PATIENT TEMPERATURE 35.8; PEEP 5 cm H2O; RESPIRATORY RATE 20 b/min; TIDAL VOLUME 400 mL; TOTAL HEMOGLOBIN 8.6 G/dl (14.0-18.0)
[2021-12-16] MEDS: dexmedetomidin/NS 400mcg/100ml 100 ML IV PRN ×4 (07:55→23:56)
[2021-12-16] MEDS: pantoprazole 40MG/NS 100ML BAG 100 ML IV SCH (07:55)
[2021-12-16] MEDS: K, MAG and/or Phos replacement - Verify level? MC SCH (08:00)
[2021-12-16] MEDS: hydrALAZINE 20mg/ml inj. IV PRN (08:05)
[2021-12-16] MEDS: clopidogrel 75mg tablet OGT SCH (08:37)
[2021-12-16] MEDS: amiodarone 200mg tablet PO SCH ×2 (08:37→20:02)
[2021-12-16] MEDS: docusate sodium 100mg/10ml UD cup OGT SCH ×2 (08:37→20:00)
[2021-12-16] MEDS: carvedilol 6.25mg tablet OGT SCH (08:38)
[2021-12-16] MEDS: calcium acetate 667mg (PhosLO) capsule OGT SCH ×3 (08:38→18:29)
[2021-12-16] MEDS: methylnaltrexone br 12mg/0.6ml inj***SubQ only SQ SCH (08:44)
[2021-12-16] MEDS: MULTIVIT-MIN/FERROUS GLUCONATE 9 MG/15 ML LIQUID OGT SCH (08:45)
[2021-12-16] MEDS: levoFLOXACIN-Levaquin 250mg/D5 50 ML IV SCH (08:45)
[2021-12-16 10:55] LABS: ABG BASE EXCESS -2.2 mmol/L (-2.0-2.0); ABG HCO3 22.9 mmol/L (22.0-26.0); ABG OXYGEN SATURATION 92.3 % (94-97); ABG PCO2 (T) 40.2 mmHg (35.0-48.0); ABG PO2 (T) 69.4 mmHg (75.0-100.0); ALLEN'S TEST POSITIVE; FCOHb 0.3 % (0.0-3.9); FMetHb 0.5 % (0.0-1.5); FO2Hb 91.6 % (94-97); PEEP 5 cm H2O; TOTAL HEMOGLOBIN 9.3 G/dl (14.0-18.0)
[2021-12-16] MEDS: cefepime 1GM/NS ADD-VANTAGE 100 ML IV SCH (11:58)
[2021-12-16] MEDS: diltiazem 30mg tablet OGT SCH ×4 (14:23→23:57)
[2021-12-16] MEDS: HYDROcodone/acetaminophen 10/325mg tab PO PRN (14:23)
[2021-12-16] MEDS: hydrALAZINE 20mg/ml inj. IV SCH ×2 (14:24→20:02)
[2021-12-16] MEDS: heparin, porcine 5000 units/ml vial SQ SCH ×2 (14:25→23:58)
[2021-12-16] MEDS: insulin regular, human U-100 3ml vial - multi-dose SQ SCH ×2 (16:38→20:50)
[2021-12-16] MEDS ORDERED: digoxin 250mcg/ml 2ml ampule IV ONE (17:25)
--- NOTE | 2021-12-16 18:32 | NUR ---
notified an 1715 of increased heart rate aflutter 150. new orders appreciated.
[2021-12-16] MEDS: carVEDilol 12.5mg tablet OGT SCH (20:01)
[2021-12-16] MEDS: insulin glargine (Lantus) pen - multi-dose SQ SCH (20:52)
[2021-12-17] VITALS (23 sets, daily range): BP systolic 94–143; BP diastolic 49–75
[2021-12-17] MEDS: HYDROcodone/acetaminophen 10/325mg tab PO PRN ×4 (00:16→20:35)
[2021-12-17] MEDS: mineral oil/petrolatum ophthal oint EACHEYE SCH ×2 (02:00→07:56)
[2021-12-17] MEDS: insulin regular, human U-100 3ml vial - multi-dose SQ SCH ×3 (02:04→20:54)
[2021-12-17] MEDS: VANCOMYCIN LEVEL IV SCH (02:05)
[2021-12-17 02:40] LABS: BASOPHILS % (AUTO) 0.3 % (0-1); EOSINOPHILS # (AUTO) 0.1 X10'3 (0-0.9); EOSINOPHILS % (AUTO) 1.1 % (0-6); HEMATOCRIT 24.9 % (42.0-52.0); HEMOGLOBIN 8.1 g/dl (14.0-17.9); LYMPHOCYTES # (AUTO) 1.1 X10'3 (1.1-4.8); MEAN CORPUSCULAR HEMOGLOBIN 25.6 PG (27.0-31.0); MEAN CORPUSCULAR HGB CONC 32.7 g/dL (33.0-36.5); MEAN CORPUSCULAR VOLUME 78.2 FL (78-98); MEAN PLATELET VOLUME 7.6 FL (7.4-10.4); MONOCYTES # (AUTO) 1.1 X10'3 (0-0.9); MONOCYTES % (AUTO) 9.8 % (2-12); NEUTROPHILS # (AUTO) 8.8 X10'3 (1.8-7.7); NEUTROPHILS % (AUTO) 78.8 % (42-75); PLATELET COUNT 403 X10'3 (140-440); RED BLOOD COUNT 3.18 X10'6 (4.70-6.10); RED CELL DISTRIBUTION WIDTH 18.5 % (11.5-14.5); WHITE BLOOD COUNT 11.1 X10'3 (4.5-11.0)
[2021-12-17 03:07] LABS: ALBUMIN 1.9 G/DL (3.4-5.0); ANION GAP 17 (8-16); BLOOD UREA NITROGEN 93 MG/DL (7-18); BUN/CREATININE RATIO 11.1 (5.4-32.0); CALCIUM 8.4 MG/DL (8.5-10.1); CHLORIDE 99 MMOL/L (99-107); CREATININE 8.36 MG/DL (0.60-1.10); GLUCOSE 142 MG/DL (70-104); POTASSIUM 3.9 MMOL/L (3.5-5.1); SODIUM 139 MMOL/L (135-145); TOTAL CARBON DIOXIDE 23.5 MMOL/L (24-32); VANCOMYCIN,RANDOM 16.8 UG/ML; eGFR 8 ML/MIN
[2021-12-17 03:09] LABS: ANISOCYTOSIS 2+; ELLIPTOCYTES 1+; HYPOCHROMASIA 2+; MICROCYTOSIS 1+; PLATELET ESTIMATE NORMAL; POLYCHROMASIA FEW
[2021-12-17] MEDS: ipratropium/albuterol 3ml nebule NEB SCH ×6 (03:51→23:01)
[2021-12-17] MEDS: diltiazem 30mg tablet OGT SCH ×6 (04:00→23:10)
[2021-12-17] MEDS: hydrALAZINE 20mg/ml inj. IV SCH ×6 (04:00→21:32)
[2021-12-17] MEDS: dexmedetomidin/NS 400mcg/100ml 100 ML IV PRN ×3 (04:19→23:06)
[2021-12-17 04:26] LABS: ABG BASE EXCESS -1.7 mmol/L (-2.0-2.0); ABG HCO3 23.7 mmol/L (22.0-26.0); ABG OXYGEN SATURATION 94.2 % (94-97); ABG PCO2 (T) 44.8 mmHg (35.0-48.0); ABG PO2 (T) 79.5 mmHg (75.0-100.0); ALLEN'S TEST POSITIVE; FCOHb 0.3 % (0.0-3.9); FLOW 8 L/min; FMetHb 0.5 % (0.0-1.5); FO2Hb 93.4 % (94-97); TOTAL HEMOGLOBIN 8.6 G/dl (14.0-18.0)
[2021-12-17] MEDS ORDERED: digoxin 250mcg/ml 2ml ampule IV ONE ×2 (06:00)
[2021-12-17 06:57] LABS: CLARITY,URINE TURBID (Clear); COLOR,URINE BROWN (Yellow)
[2021-12-17 07:00] LABS: UA COLLECTION TYPE NON-SPECIFIED
[2021-12-17 07:05] LABS: RBC,URINE 50-100 /HPF (0-2); WBC,URINE 0-4 /HPF (0-4)
[2021-12-17 07:06] LABS: BACTERIA,URINE 2+ /HPF (Neg)
[2021-12-17 07:07] LABS: SQUAMOUS EPITHELIAL CELL,UR FEW /LPF (FEW)
[2021-12-17 07:08] LABS: COARSE GRANULAR CAST 0-3 /LPF (NEGATIVE); WAXY CASTS,URINE 0-3 /LPF (NEGATIVE)
[2021-12-17] MEDS: calcium acetate 667mg (PhosLO) capsule OGT SCH ×3 (07:51→18:04)
[2021-12-17] MEDS: docusate sodium 100mg/10ml UD cup OGT SCH ×2 (07:51→20:35)
[2021-12-17] MEDS: amiodarone 200mg tablet PO SCH ×2 (07:54→20:33)
[2021-12-17] MEDS: heparin, porcine 5000 units/ml vial SQ SCH ×3 (07:54→23:11)
[2021-12-17] MEDS: carVEDilol 12.5mg tablet OGT SCH ×2 (07:55→20:33)
[2021-12-17] MEDS: MULTIVIT-MIN/FERROUS GLUCONATE 9 MG/15 ML LIQUID OGT SCH (07:55)
[2021-12-17] MEDS: clopidogrel 75mg tablet OGT SCH (07:55)
[2021-12-17] MEDS: pantoprazole 40MG/NS 100ML BAG 100 ML IV SCH (07:56)
[2021-12-17] MEDS: K, MAG and/or Phos replacement - Verify level? MC SCH (08:00)
[2021-12-17] MEDS ORDERED: EPOETIN ALFA-EPBX 20,000 UNIT/ML 1 ML MDV IV ONE (08:00)
[2021-12-17] MEDS ORDERED: heparin 1,000 units/ml 10ml inj IV ONE (08:00)
[2021-12-17] MEDS ORDERED: heparin 1,000 units/ml 10ml inj HE ONE ×2 (08:00)
[2021-12-17] MEDS ORDERED: albumin (human) 25% 100ml IV 100 ML IV PRN (08:00)
[2021-12-17] MEDS ORDERED: heparin 1,000unit/ml 10ml vial 10 ML IV ONE (08:00)
--- NOTE | 2021-12-17 12:07 | NUR ---
F/u 12/17: Pt extubated w/ NG in place receiving TF at 20ml/hr trickle and tolerating. Pt no longer septic per MD w/ TF to change to Nepro now given HD; updated recs below. Noted pt +25.3kg since admit w/ negative fluid balance on HD unsure wt accuracy. TF not advanced though supposed to be returned to goal per MD at rounds 12/14; see prior note. Pt EN at goal for 2 hours this LOS w/ 0% initial heart healthy meals prior to intubation per EMR; given this and severe weakness pt meets severe malnutrition criteria MD notified. Prior 10 days constipation resolved yesterday w/ large BM 12/16 per RN at rounds. Will monitor for further EN tolerance and adjustment needs. Rec: 1. Continuous TF per MD using Nepro at 65ml/hr goal to provide 1560ml volume/day, 2761 kcals, 2006ml water, and 126g protein. 2. additional free water per cable tool operator; on HD 3. Phos binder w/ TF on HD 4. advance diet as medically indicated to heart healthy per STOCK MIXER/MD recs 5. routine bowel care; prior 10 days constipation this admit resolved 12/16 Addendum: 12/17/21 at [address] Amended: Links added.
[2021-12-17] MEDS: insulin glargine (Lantus) pen - multi-dose SQ SCH (20:55)
[2021-12-18] VITALS (22 sets, daily range): BP systolic 108–193; BP diastolic 38–99
[2021-12-18] MEDS: hydrALAZINE 20mg/ml inj. IV SCH ×3 (00:48→09:38)
[2021-12-18] MEDS: insulin regular, human U-100 3ml vial - multi-dose SQ SCH (02:07)
[2021-12-18 02:29] LABS: BASOPHILS # (AUTO) 0.1 X10'3 (0-0.2); BASOPHILS % (AUTO) 0.5 % (0-1); EOSINOPHILS # (AUTO) 0.1 X10'3 (0-0.9); EOSINOPHILS % (AUTO) 1.2 % (0-6); HEMATOCRIT 23.8 % (42.0-52.0); HEMOGLOBIN 7.9 g/dl (14.0-17.9); LYMPHOCYTES # (AUTO) 1.2 X10'3 (1.1-4.8); LYMPHOCYTES % (AUTO) 11.8 % (21-51); MEAN CORPUSCULAR HEMOGLOBIN 26.4 PG (27.0-31.0); MEAN CORPUSCULAR HGB CONC 33.3 g/dL (33.0-36.5); MEAN CORPUSCULAR VOLUME 79.2 FL (78-98); MEAN PLATELET VOLUME 7.4 FL (7.4-10.4); MONOCYTES # (AUTO) 1.2 X10'3 (0-0.9); MONOCYTES % (AUTO) 11.8 % (2-12); NEUTROPHILS # (AUTO) 7.8 X10'3 (1.8-7.7); NEUTROPHILS % (AUTO) 74.7 % (42-75); PLATELET COUNT 367 X10'3 (140-440); RED BLOOD COUNT 3.01 X10'6 (4.70-6.10); RED CELL DISTRIBUTION WIDTH 18.1 % (11.5-14.5); WHITE BLOOD COUNT 10.4 X10'3 (4.5-11.0)
[2021-12-18] MEDS: ipratropium/albuterol 3ml nebule NEB SCH ×6 (02:54→23:05)
[2021-12-18 03:19] LABS: ANISOCYTOSIS 2+; ELLIPTOCYTES 1+; MICROCYTOSIS 1+; PLATELET ESTIMATE NORMAL; POLYCHROMASIA FEW; TOTAL CELLS COUNTED 100
[2021-12-18 03:20] LABS: GIANT PLATELET FEW; SMUDGE CELLS FEW
[2021-12-18] MEDS: diltiazem 30mg tablet OGT SCH ×2 (03:40→08:13)
[2021-12-18] MEDS: dexmedetomidin/NS 400mcg/100ml 100 ML IV PRN ×2 (04:19→09:32)
[2021-12-18 06:03] LABS: HBSAG SCREEN Negative (Negative)
[2021-12-18] MEDS: docusate sodium 100mg/10ml UD cup OGT SCH (08:00)
[2021-12-18] MEDS: K, MAG and/or Phos replacement - Verify level? MC SCH (08:00)
[2021-12-18] MEDS: methylnaltrexone br 12mg/0.6ml inj***SubQ only SQ SCH (08:00)
[2021-12-18] MEDS: pantoprazole 40MG/NS 100ML BAG 100 ML IV SCH (08:09)
[2021-12-18] MEDS: MULTIVIT-MIN/FERROUS GLUCONATE 9 MG/15 ML LIQUID OGT SCH (08:11)
[2021-12-18] MEDS: carVEDilol 12.5mg tablet OGT SCH (08:13)
[2021-12-18] MEDS: amiodarone 200mg tablet PO SCH ×2 (08:13→20:08)
[2021-12-18] MEDS: calcium acetate 667mg (PhosLO) capsule OGT SCH (08:13)
[2021-12-18] MEDS: clopidogrel 75mg tablet OGT SCH (08:13)
[2021-12-18 08:20] LABS: ALANINE AMINOTRANSFERASE 22 U/L (12-78); ALBUMIN 1.9 G/DL (3.4-5.0); ALBUMIN/GLOBULIN RATIO 0.4 (1.1-1.5); ALKALINE PHOSPHATASE 62 IU/L (46-116); ANION GAP 12 (8-16); BILIRUBIN,TOTAL 0.2 MG/DL (0.1-1.0); BLOOD UREA NITROGEN 73 MG/DL (7-18); BUN/CREATININE RATIO 9.8 (5.4-32.0); CHLORIDE 99 MMOL/L (99-107); CREATININE 7.43 MG/DL (0.60-1.10); GLUCOSE 176 MG/DL (70-104); POTASSIUM 3.5 MMOL/L (3.5-5.1); SODIUM 137 MMOL/L (135-145); TOTAL CARBON DIOXIDE 26.2 MMOL/L (24-32); TOTAL PROTEIN 6.2 G/DL (6.4-8.2); eGFR 10 ML/MIN
[2021-12-18] MEDS: HYDROcodone/acetaminophen 10/325mg tab PO PRN ×2 (08:33→17:05)
[2021-12-18 08:41] LABS: ASPARTATE AMINO TRANSFERASE 10 U/L (10-37)
[2021-12-18] MEDS ORDERED: acetaminophen 325mg tablet PO PRN (11:20)
[2021-12-18] MEDS ORDERED: DEXTROSE 15 GM of carb/4 tabs (each vial/BOTTLE has 4 tablets) PO PRN ×2 (11:21→11:22)
[2021-12-18] MEDS ORDERED: docusate sod 100mg capsule PO SCH (11:22)
[2021-12-18] MEDS ORDERED: ondansetron 4mg rapidly disintigrating tab PO PRN (11:23)
--- NOTE | 2021-12-18 11:56 | NUR ---
Nutrition Consult "CKD w/ KENDRA, DM, HTN": Pt advanced to regular diet per WELDING MACHINE OPERATOR PLASMA ARC recs w/ NGTF advanced to goal 65ml/hr this AM as well. Instrumentation Technologist is agreeable for EN to continue pending initial meal intake given EN only at goal two hours throughout LOS. Pt hx T2DM A1C 6.3% appropriate now receiving intermittent HD. Pt/SO would benefit from renal diet ed once adequate PO trends assured given new HD but ed deferred at this time given poor nutrition status throughout LOS. Pt receiving Phos binder w/ PO pending new Phos last 12/10 WNL per EMR. Will monitor for further nutrition intervention needs. Rec: 1. Advance to renal diet per WELDING MACHINE OPERATOR PLASMA ARC/MD recs; encourage PO 2. Continuous TF per MD using Nepro at 65ml/hr goal to provide 1560ml volume/day, 2761 kcals, 2006ml water, and 126g protein. 3. Continue EN until PO at least consistently 50% avg meals 4. IF persistent PO intake; consider Nepro ONS to assist meeting needs on HD 5. Phos binder w/ TF on HD 6. bowel care per rx; large liquid stools per RN this AM following prior 10 days constipation resolved 12/16 Addendum: 12/18/21 at [address] Amended: Links added.
[2021-12-18] MEDS ORDERED: docusate sod 100mg capsule PO PRN (13:35)
[2021-12-18] MEDS ORDERED: insulin Lispro (HumaLOG) vial - multi-dose SQ SCH (13:35)
[2021-12-18] MEDS: calcium acetate 667mg (PhosLO) capsule PO SCH ×2 (13:46→17:05)
[2021-12-18] MEDS: hydrALAZINE 25 MG tablet PO SCH ×3 (13:46→20:15)
[2021-12-18] MEDS: heparin, porcine 5000 units/ml vial SQ SCH ×2 (17:07→23:07)
--- NOTE | 2021-12-18 18:30 | NUR ---
Patient in room CICU 2007. I have received report from Rickey LA and had the opportunity to ask questions and assume patient care.
[2021-12-18] MEDS: carVEDilol 12.5mg tablet PO SCH (20:08)
[2021-12-18] MEDS: temazepam 15mg capsule PO PRN (20:08)
[2021-12-18] MEDS: insulin glargine (Lantus) pen - multi-dose SQ SCH (20:09)
[2021-12-19] VITALS (23 sets, daily range): BP systolic 101–208; BP diastolic 43–100
[2021-12-19] MEDS: HYDROcodone/acetaminophen 10/325mg tab PO PRN ×4 (01:53→19:11)
[2021-12-19] MEDS: ipratropium/albuterol 3ml nebule NEB SCH ×6 (03:00→23:48)
--- NOTE | 2021-12-19 06:22 | NUR ---
Received report from BESSIE Waller
[2021-12-19 06:27] LABS: BASOPHILS # (AUTO) 0.1 X10'3 (0-0.2); BASOPHILS % (AUTO) 0.6 % (0-1); EOSINOPHILS # (AUTO) 0.2 X10'3 (0-0.9); EOSINOPHILS % (AUTO) 2.1 % (0-6); HEMOGLOBIN 7.3 g/dl (14.0-17.9); LYMPHOCYTES # (AUTO) 0.9 X10'3 (1.1-4.8); LYMPHOCYTES % (AUTO) 10.4 % (21-51); MEAN CORPUSCULAR HEMOGLOBIN 26.4 PG (27.0-31.0); MEAN CORPUSCULAR HGB CONC 33.2 g/dL (33.0-36.5); MEAN CORPUSCULAR VOLUME 79.6 FL (78-98); MEAN PLATELET VOLUME 7.4 FL (7.4-10.4); MONOCYTES # (AUTO) 1.1 X10'3 (0-0.9); MONOCYTES % (AUTO) 12.6 % (2-12); NEUTROPHILS # (AUTO) 6.6 X10'3 (1.8-7.7); NEUTROPHILS % (AUTO) 74.3 % (42-75); PLATELET COUNT 371 X10'3 (140-440); RED BLOOD COUNT 2.76 X10'6 (4.70-6.10); RED CELL DISTRIBUTION WIDTH 17.9 % (11.5-14.5); WHITE BLOOD COUNT 8.8 X10'3 (4.5-11.0)
[2021-12-19 06:38] LABS: ALANINE AMINOTRANSFERASE 16 U/L (12-78); ALBUMIN 2.1 G/DL (3.4-5.0); ALBUMIN/GLOBULIN RATIO 0.5 (1.1-1.5); ALKALINE PHOSPHATASE 51 IU/L (46-116); ANION GAP 15 (8-16); ASPARTATE AMINO TRANSFERASE 9 U/L (10-37); BILIRUBIN,TOTAL 0.2 MG/DL (0.1-1.0); BLOOD UREA NITROGEN 83 MG/DL (7-18); BUN/CREATININE RATIO 9.4 (5.4-32.0); CALCIUM 8.3 MG/DL (8.5-10.1); CHLORIDE 99 MMOL/L (99-107); CREATININE 8.87 MG/DL (0.60-1.10); GLUCOSE 131 MG/DL (70-104); POTASSIUM 3.6 MMOL/L (3.5-5.1); SODIUM 140 MMOL/L (135-145); TOTAL CARBON DIOXIDE 26.2 MMOL/L (24-32); eGFR 8 ML/MIN
[2021-12-19] MEDS: heparin, porcine 5000 units/ml vial SQ SCH ×2 (07:07→17:19)
[2021-12-19] MEDS: pantoprazole 40MG/NS 100ML BAG 100 ML IV SCH (07:45)
[2021-12-19] MEDS: calcium acetate 667mg (PhosLO) capsule PO SCH ×3 (07:46→17:19)
[2021-12-19] MEDS: multivitamins, therapeutics tablet PO SCH (07:46)
[2021-12-19] MEDS: amiodarone 200mg tablet PO SCH ×2 (07:46→19:12)
[2021-12-19] MEDS: clopidogrel 75mg tablet PO SCH (07:47)
[2021-12-19] MEDS: hydrALAZINE 25 MG tablet PO SCH ×5 (07:47→20:25)
[2021-12-19] MEDS: diltiazem CD 180mg cap (once-daily) PO SCH (07:47)
[2021-12-19] MEDS: carVEDilol 12.5mg tablet PO SCH ×2 (07:48→19:12)
[2021-12-19] MEDS: K, MAG and/or Phos replacement - Verify level? MC SCH (08:00)
[2021-12-19] MEDS ORDERED: albumin (human) 25% 100ml IV 100 ML IV PRN (10:15)
[2021-12-19] MEDS ORDERED: EPOETIN ALFA-EPBX 20,000 UNIT/ML 1 ML MDV IV ONE (10:15)
[2021-12-19] MEDS ORDERED: heparin 1,000unit/ml 10ml vial 10 ML IV ONE (10:15)
[2021-12-19] MEDS ORDERED: heparin 1,000 units/ml 10ml inj HE ONE ×2 (10:20)
--- NOTE | 2021-12-19 10:29 | NUR ---
Per patient and his SO requesting to speak with RD regarding diet. Pt and SO seen at bedside provided with written and verbal nutrition therapy education for CKD on dialysis. All of patient's and SO's questions were answered at this time. RD contact information provided and pt/SO encouraged to reach out if needed. Noted pt no longer receiving TF. Pt states appetite is "okay" though TF was just discontinued and pt started on a PO diet 12/18 of which pt documented with ~54% PO intake of three meals. LBM 12/18, documented with diarrhea. Routine Colace and Relistor discontinued 12/18 per EMR. Will continue to follow and monitor need for nutrition intervention pending further trends in PO intake. Recommendations: 1. Continue regular diet; monitor electrolytes and need for renal diet 2. Monitor need for additional protein/ONS 3. Routine Phos binder; consider routine Phos labs 4. Bowel care PRN 5. Daily scaled weights per rx Addendum: 12/19/21 at [address] Amended: Links added.
[2021-12-19] MEDS ORDERED: LIDOcaine 1%/PF 5ML 10 MG/ML VIAL ONE (12:30)
[2021-12-19] MEDS ORDERED: fentaNYL/PF 50MCG/1 ML 2ML syringe ONE (12:30)
[2021-12-19] MEDS ORDERED: heparin 1,000unit/ml 10ml vial 10 ML ONE (12:30)
[2021-12-19] MEDS ORDERED: midazolam 1 mg/ML 2ml injection ONE (12:30)
[2021-12-19] MEDS: pantoprazole 40mg Tablet.DR PO SCH (13:00)
[2021-12-19] MEDS ORDERED: diphenhydrAMINE 50 mg/ml inj ONE (13:19)
[2021-12-19] MEDS ORDERED: HYDROmorphone 1 mg/ml syringe ONE (13:30)
[2021-12-19] MEDS: insulin glargine (Lantus) pen - multi-dose SQ SCH (20:33)
[2021-12-20] VITALS (24 sets, daily range): BP systolic 114–181; BP diastolic 56–92
[2021-12-20] MEDS: HYDROcodone/acetaminophen 10/325mg tab PO PRN ×3 (00:17→20:03)
[2021-12-20] MEDS: heparin, porcine 5000 units/ml vial SQ SCH ×3 (01:00→16:00)
[2021-12-20] MEDS: temazepam 15mg capsule PO PRN (01:52)
[2021-12-20] MEDS: ipratropium/albuterol 3ml nebule NEB SCH ×6 (03:00→23:06)
--- NOTE | 2021-12-20 05:19 | NUR ---
RN Note -Pt has been restless and has not slept. Restoril given last night, pt states that he does not want to take it again because it made him have nightmares. He has been picking at the scab on his face and pulling off his gown, but is able to answer questions appropriately and is oriented x4. Educated pt on the importance of getting enough sleep and the difficulty of being able to sleep in the hospital. Pt stated that he might be willing to take something to help him sleep, but does not want the Restoril again.
[2021-12-20 06:03] LABS: BASOPHILS % (AUTO) 0.5 % (0-1); EOSINOPHILS # (AUTO) 0.1 X10'3 (0-0.9); EOSINOPHILS % (AUTO) 1.7 % (0-6); HEMATOCRIT 24.9 % (42.0-52.0); LYMPHOCYTES % (AUTO) 12.1 % (21-51); MEAN CORPUSCULAR HEMOGLOBIN 25.9 PG (27.0-31.0); MEAN CORPUSCULAR HGB CONC 32.1 g/dL (33.0-36.5); MEAN CORPUSCULAR VOLUME 80.7 FL (78-98); MEAN PLATELET VOLUME 7.2 FL (7.4-10.4); MONOCYTES # (AUTO) 0.9 X10'3 (0-0.9); MONOCYTES % (AUTO) 10.5 % (2-12); NEUTROPHILS # (AUTO) 6.4 X10'3 (1.8-7.7); NEUTROPHILS % (AUTO) 75.2 % (42-75); PLATELET COUNT 371 X10'3 (140-440); RED BLOOD COUNT 3.09 X10'6 (4.70-6.10); RED CELL DISTRIBUTION WIDTH 18.5 % (11.5-14.5); WHITE BLOOD COUNT 8.5 X10'3 (4.5-11.0)
[2021-12-20 06:54] LABS: TOTAL CELLS COUNTED 100
[2021-12-20 06:55] LABS: ALANINE AMINOTRANSFERASE 19 U/L (12-78); ALBUMIN 2.5 G/DL (3.4-5.0); ALBUMIN/GLOBULIN RATIO 0.7 (1.1-1.5); ALKALINE PHOSPHATASE 61 IU/L (46-116); ANION GAP 13 (8-16); ASPARTATE AMINO TRANSFERASE 11 U/L (10-37); BILIRUBIN,TOTAL 0.2 MG/DL (0.1-1.0); BLOOD UREA NITROGEN 55 MG/DL (7-18); CALCIUM 8.5 MG/DL (8.5-10.1); CHLORIDE 99 MMOL/L (99-107); GLUCOSE 117 MG/DL (70-104); LYMPHOCYTES % (MANUAL) 11 % (21-51); MAGNESIUM 2.2 MG/DL (1.5-2.4); MONOCYTES % (MANUAL) 9 % (2-12); NEUTROPHILS % (MANUAL) 75 % (42-75); PHOSPHORUS 5.3 MG/DL (2.3-4.5); SODIUM 140 MMOL/L (135-145); TOTAL CARBON DIOXIDE 28.3 MMOL/L (24-32); TOTAL PROTEIN 6.3 G/DL (6.4-8.2); eGFR 10 ML/MIN
[2021-12-20 06:56] LABS: ANISOCYTOSIS 2+; GIANT PLATELET FEW; LARGE PLATELETS FEW; PLATELET ESTIMATE NORMAL
[2021-12-20] MEDS: K, MAG and/or Phos replacement - Verify level? MC SCH (08:00)
[2021-12-20] MEDS: multivitamins, therapeutics tablet PO SCH (08:13)
[2021-12-20] MEDS: amiodarone 200mg tablet PO SCH ×2 (08:13→20:08)
[2021-12-20] MEDS: hydrALAZINE 25 MG tablet PO SCH ×4 (08:13→21:16)
[2021-12-20] MEDS: carVEDilol 12.5mg tablet PO SCH ×2 (08:13→20:08)
[2021-12-20] MEDS: diltiazem CD 180mg cap (once-daily) PO SCH (08:14)
[2021-12-20] MEDS: pantoprazole 40mg Tablet.DR PO SCH (08:14)
[2021-12-20] MEDS: calcium acetate 667mg (PhosLO) capsule PO SCH ×3 (08:14→18:00)
[2021-12-20] MEDS: clopidogrel 75mg tablet PO SCH (08:14)
[2021-12-20] MEDS: labetalol 20mg/4ml (5mg/ml) syringe IV PRN (20:03)
[2021-12-20] MEDS: insulin glargine (Lantus) pen - multi-dose SQ SCH (21:15)
[2021-12-21] VITALS (18 sets, daily range): BP systolic 114–172; BP diastolic 48–87
[2021-12-21] MEDS: heparin, porcine 5000 units/ml vial SQ SCH ×3 (00:33→15:57)
[2021-12-21] MEDS: ipratropium/albuterol 3ml nebule NEB SCH ×4 (02:33→15:00)
[2021-12-21] MEDS: HYDROcodone/acetaminophen 10/325mg tab PO PRN (03:26)
[2021-12-21] MEDS: labetalol 20mg/4ml (5mg/ml) syringe IV PRN (03:26)
[2021-12-21] MEDS ORDERED: EPOETIN ALFA-EPBX 20,000 UNIT/ML 1 ML MDV IV ONE (05:55)
[2021-12-21] MEDS ORDERED: heparin 1,000 units/ml 10ml inj IV ONE (05:55)
[2021-12-21] MEDS ORDERED: heparin 1,000unit/ml 10ml vial 10 ML IV ONE (05:55)
[2021-12-21] MEDS ORDERED: albumin (human) 25% 100ml IV 100 ML IV PRN (05:55)
[2021-12-21] MEDS ORDERED: heparin 1,000 units/ml 10ml inj HE ONE ×2 (06:00→10:32)
--- NOTE | 2021-12-21 06:35 | NUR ---
Patient in room CICU 2007. I have received report from BESSIE Barrow and had the opportunity to ask questions and assume patient care.
[2021-12-21 06:42] LABS: BASOPHILS % (AUTO) 0.6 % (0-1); EOSINOPHILS # (AUTO) 0.2 X10'3 (0-0.9); HEMATOCRIT 22.1 % (42.0-52.0); HEMOGLOBIN 7.3 g/dl (14.0-17.9); LYMPHOCYTES # (AUTO) 0.9 X10'3 (1.1-4.8); LYMPHOCYTES % (AUTO) 10.9 % (21-51); MEAN CORPUSCULAR HEMOGLOBIN 26.2 PG (27.0-31.0); MEAN CORPUSCULAR HGB CONC 32.9 g/dL (33.0-36.5); MEAN CORPUSCULAR VOLUME 79.7 FL (78-98); MEAN PLATELET VOLUME 7.5 FL (7.4-10.4); MONOCYTES # (AUTO) 0.8 X10'3 (0-0.9); MONOCYTES % (AUTO) 10.2 % (2-12); NEUTROPHILS # (AUTO) 6.1 X10'3 (1.8-7.7); NEUTROPHILS % (AUTO) 76.3 % (42-75); PLATELET COUNT 321 X10'3 (140-440); RED BLOOD COUNT 2.78 X10'6 (4.70-6.10); RED CELL DISTRIBUTION WIDTH 18.4 % (11.5-14.5); WHITE BLOOD COUNT 7.9 X10'3 (4.5-11.0)
[2021-12-21 07:19] LABS: ALANINE AMINOTRANSFERASE 17 U/L (12-78); ALBUMIN 2.1 G/DL (3.4-5.0); ALBUMIN/GLOBULIN RATIO 0.5 (1.1-1.5); ALKALINE PHOSPHATASE 52 IU/L (46-116); ANION GAP 11 (8-16); ASPARTATE AMINO TRANSFERASE 11 U/L (10-37); BILIRUBIN,TOTAL 0.2 MG/DL (0.1-1.0); BLOOD UREA NITROGEN 61 MG/DL (7-18); BUN/CREATININE RATIO 7.3 (5.4-32.0); CALCIUM 8.6 MG/DL (8.5-10.1); CHLORIDE 98 MMOL/L (99-107); CREATININE 8.37 MG/DL (0.60-1.10); GLUCOSE 121 MG/DL (70-104); MAGNESIUM 2.3 MG/DL (1.5-2.4); POTASSIUM 3.9 MMOL/L (3.5-5.1); SODIUM 135 MMOL/L (135-145); TOTAL CARBON DIOXIDE 25.7 MMOL/L (24-32); TOTAL PROTEIN 6.2 G/DL (6.4-8.2); TRIGLYCERIDES 291 MG/DL (20-135); eGFR 8 ML/MIN
--- NOTE | 2021-12-21 07:24 | NUR ---
[facility] yesterday afternoon, the primary nurse brought to the attention of the [facility] nurse that pt has an abrasion to his left chin as well as 2 new skin tears, one to each knee. Observed scabbed area to left chin is stable and w/o drainage. The left lip area is noted to be more open and per pt has been picking a the previously stable scabbed area. Educated pt to refrain from picking or scratching at scabs and allow nursing to care for the areas as well as to continue to alternate lip balm and lip moisturizer while she is visiting at bedside. Report to primary nurse and [facility] will round on pt today. Addendum: 12/21/21 at 0732 by Gina New RN Amended: Links added.
[2021-12-21] MEDS: K, MAG and/or Phos replacement - Verify level? MC SCH (08:00)
[2021-12-21 08:02] LABS: ANISOCYTOSIS 2+; HYPOCHROMASIA 1+; MICROCYTOSIS 1+; PLATELET ESTIMATE NORMAL; TOTAL CELLS COUNTED 100
[2021-12-21] MEDS: diltiazem CD 180mg cap (once-daily) PO SCH (08:23)
[2021-12-21] MEDS: calcium acetate 667mg (PhosLO) capsule PO SCH ×2 (08:25→13:00)
[2021-12-21] MEDS: amiodarone 200mg tablet PO SCH (08:25)
[2021-12-21] MEDS: carVEDilol 12.5mg tablet PO SCH (08:26)
[2021-12-21] MEDS: pantoprazole 40mg Tablet.DR PO SCH (08:27)
[2021-12-21] MEDS: hydrALAZINE 25 MG tablet PO SCH ×3 (08:28→16:27)
[2021-12-21] MEDS: clopidogrel 75mg tablet PO SCH (08:28)
[2021-12-21] MEDS: multivitamins, therapeutics tablet PO SCH (08:29)
--- NOTE | 2021-12-21 10:00 | NUR ---
Dr. Rodriguez at bedside for AM rounds. Discussed plan to tx to ePdro.
[2021-12-21] MEDS ORDERED: mupirocin 2% nasal ointment 1gm UD NS ONE (10:50)
[2021-12-21 13:17] LABS: HBSAG SCREEN Negative (Negative); HEPATITIS C ANTIBODY <0.1 s/co ratio (0.0-0.9)
--- NOTE | 2021-12-21 14:50 | NUR ---
Gave handoff report via telephone call to [facility] nurse Yin. All questions were answered.
--- NOTE | 2021-12-21 15:46 | NUR ---
WOUND INFECTION EDUCATION PROVIDED BY WOUND [facility] 1. Patient instructed to call their primary doctor, or go the ED immediately if any of the following symptoms occur: * Increased pain in wound * Increase in drainage from the wound * Redness in the skin surrounding the wound * Warmth in the skin surrounding the wound * Bleeding from the wound * Temperature of 101 or greater 2. If any of these occur while in the hospital tell a nurse immediately. Addendum: 12/21/21 at 1547 by Gina New RN Amended: Links added.
--- NOTE | 2021-12-21 16:35 | NUR ---
Pt was transported via EMS to [facility] on [address] [place]. Addendum: 12/21/21 at 1702 by Geovanna Hopkins RN All belongings with pt and , Vandana.
--- NOTE | 2021-12-21 16:55 | NUR ---
Preceptor Note I have reviewed Geovanna RN's documentation and agree with it as noted for this pt discharged to SNF.
== END 2021-12-21 16:31 | DRG 720 ==
LOC: ER 12:53 → ED HOLD 14:56 → UNDOADMIN 14:56 → ORTHO 4S 14:56 → EDBEDREQDT 12-05 23:38 → CICU 2S 12-06 13:25
PROVIDERS: ADMIT Internal Medicine; ATTEND Internal Medicine
PROC: 5A09357 Assistance with Respiratory Ventilation, Less than 24 Consecutive Hours, Continuous Positive Airway Pressure (ICD-10-PCS; 2021-12-04)
PROC: 5A09357 Assistance with Respiratory Ventilation, Less than 24 Consecutive Hours, Continuous Positive Airway Pressure (ICD-10-PCS; 2021-12-05)
PROC: 4A02XM4 Measurement of Cardiac Total Activity, External Approach (ICD-10-PCS; principal; 2021-12-06)
PROC: 3E033HZ Introduction of Radioactive Substance into Peripheral Vein, Percutaneous Approach (ICD-10-PCS; 2021-12-06)
PROC: 5A09357 Assistance with Respiratory Ventilation, Less than 24 Consecutive Hours, Continuous Positive Airway Pressure (ICD-10-PCS; 2021-12-06)
PROC: 5A1955Z Respiratory Ventilation, Greater than 96 Consecutive Hours (ICD-10-PCS; 2021-12-06)
PROC: 0BH17EZ Insertion of Endotracheal Airway into Trachea, Via Natural or Artificial Opening (ICD-10-PCS; 2021-12-06)
PROC: 5A1D90Z Performance of Urinary Filtration, Continuous, Greater than 18 hours Per Day (ICD-10-PCS; 2021-12-07)
PROC: 5A1D90Z Performance of Urinary Filtration, Continuous, Greater than 18 hours Per Day (ICD-10-PCS; 2021-12-08)
PROC: 5A1D90Z Performance of Urinary Filtration, Continuous, Greater than 18 hours Per Day (ICD-10-PCS; 2021-12-09)
PROC: 5A1D90Z Performance of Urinary Filtration, Continuous, Greater than 18 hours Per Day (ICD-10-PCS; 2021-12-10)
PROC: 5A1D70Z Performance of Urinary Filtration, Intermittent, Less than 6 Hours Per Day (ICD-10-PCS; 2021-12-12)
PROC: 5A1D70Z Performance of Urinary Filtration, Intermittent, Less than 6 Hours Per Day (ICD-10-PCS; 2021-12-14)
PROC: 0BJ08ZZ Inspection of Tracheobronchial Tree, Via Natural or Artificial Opening Endoscopic (ICD-10-PCS; 2021-12-14)
PROC: 05HY33Z Insertion of Infusion Device into Upper Vein, Percutaneous Approach (ICD-10-PCS; 2021-12-14)
PROC: B54NZZA Ultrasonography of Left Upper Extremity Veins, Guidance (ICD-10-PCS; 2021-12-14)
PROC: 5A09357 Assistance with Respiratory Ventilation, Less than 24 Consecutive Hours, Continuous Positive Airway Pressure (ICD-10-PCS; 2021-12-16)
PROC: 5A0935A Assistance with Respiratory Ventilation, Less than 24 Consecutive Hours, High Flow/Velocity Cannula (ICD-10-PCS; 2021-12-16)
PROC: 5A09357 Assistance with Respiratory Ventilation, Less than 24 Consecutive Hours, Continuous Positive Airway Pressure (ICD-10-PCS; 2021-12-17)
PROC: 5A0935A Assistance with Respiratory Ventilation, Less than 24 Consecutive Hours, High Flow/Velocity Cannula (ICD-10-PCS; 2021-12-17)
PROC: 5A1D70Z Performance of Urinary Filtration, Intermittent, Less than 6 Hours Per Day (ICD-10-PCS; 2021-12-17)
PROC: 5A09357 Assistance with Respiratory Ventilation, Less than 24 Consecutive Hours, Continuous Positive Airway Pressure (ICD-10-PCS; 2021-12-18)
PROC: 5A0935A Assistance with Respiratory Ventilation, Less than 24 Consecutive Hours, High Flow/Velocity Cannula (ICD-10-PCS; 2021-12-18)
PROC: 0JH63XZ Insertion of Tunneled Vascular Access Device into Chest Subcutaneous Tissue and Fascia, Percutaneous Approach (ICD-10-PCS; 2021-12-19)
PROC: 02HV33Z Insertion of Infusion Device into Superior Vena Cava, Percutaneous Approach (ICD-10-PCS; 2021-12-19)
PROC: B548ZZA Ultrasonography of Superior Vena Cava, Guidance (ICD-10-PCS; 2021-12-19)
PROC: B5181ZA Fluoroscopy of Superior Vena Cava using Low Osmolar Contrast, Guidance (ICD-10-PCS; 2021-12-19)
PROC: 5A09357 Assistance with Respiratory Ventilation, Less than 24 Consecutive Hours, Continuous Positive Airway Pressure (ICD-10-PCS; 2021-12-19)
PROC: 5A0935A Assistance with Respiratory Ventilation, Less than 24 Consecutive Hours, High Flow/Velocity Cannula (ICD-10-PCS; 2021-12-19)
PROC: 5A1D70Z Performance of Urinary Filtration, Intermittent, Less than 6 Hours Per Day (ICD-10-PCS; 2021-12-19)
PROC: 5A09357 Assistance with Respiratory Ventilation, Less than 24 Consecutive Hours, Continuous Positive Airway Pressure (ICD-10-PCS; 2021-12-20)
PROC: 5A09357 Assistance with Respiratory Ventilation, Less than 24 Consecutive Hours, Continuous Positive Airway Pressure (ICD-10-PCS; 2021-12-21)
PROC: 5A1D70Z Performance of Urinary Filtration, Intermittent, Less than 6 Hours Per Day (ICD-10-PCS; 2021-12-21)
DX: A41.9 Sepsis, unspecified organism (principal); J80 Acute respiratory distress syndrome; N17.0 Acute kidney failure with tubular necrosis; R65.21 Severe sepsis with septic shock; G93.41 Metabolic encephalopathy; I13.0 Hypertensive heart and chronic kidney disease with heart failure and stage 1 through stage 4 chronic kidney disease, or unspecified chronic kidney disease; J18.9 Pneumonia, unspecified organism; D63.1 Anemia in chronic kidney disease; I50.9 Heart failure, unspecified; E87.4 Mixed disorder of acid-base balance; I21.A1 Myocardial infarction type 2; E11.22 Type 2 diabetes mellitus with diabetic chronic kidney disease; R04.2 Hemoptysis; E11.51 Type 2 diabetes mellitus with diabetic peripheral angiopathy without gangrene; E86.0 Dehydration; I48.91 Unspecified atrial fibrillation; E66.01 Morbid (severe) obesity due to excess calories; E78.00 Pure hypercholesterolemia, unspecified; E87.6 Hypokalemia; G47.33 Obstructive sleep apnea (adult) (pediatric); G89.29 Other chronic pain; I16.0 Hypertensive urgency; I25.10 Atherosclerotic heart disease of native coronary artery without angina pectoris; J45.909 Unspecified asthma, uncomplicated; J98.11 Atelectasis; K21.9 Gastro-esophageal reflux disease without esophagitis; M19.90 Unspecified osteoarthritis, unspecified site; L08.9 Local infection of the skin and subcutaneous tissue, unspecified; N18.4 Chronic kidney disease, stage 4 (severe); K57.90 Diverticulosis of intestine, part unspecified, without perforation or abscess without bleeding; R59.0 Localized enlarged lymph nodes; L03.116 Cellulitis of left lower limb; Z20.822 Contact with and (suspected) exposure to COVID-19; K76.0 Fatty (change of) liver, not elsewhere classified; M54.50 Low back pain, unspecified; Z66 Do not resuscitate; Z79.02 Long term (current) use of antithrombotics/antiplatelets; Z79.84 Long term (current) use of oral hypoglycemic drugs; Z79.899 Other long term (current) drug therapy; Z82.3 Family history of stroke; Z82.49 Family history of ischemic heart disease and other diseases of the circulatory system; Z83.3 Family history of diabetes mellitus; Z87.11 Personal history of peptic ulcer disease; Z87.891 Personal history of nicotine dependence; Z88.6 Allergy status to analgesic agent; Z88.5 Allergy status to narcotic agent; Z88.8 Allergy status to other drugs, medicaments and biological substances; Z90.49 Acquired absence of other specified parts of digestive tract; T88.6XXA Anaphylactic reaction due to adverse effect of correct drug or medicament properly administered, initial encounter; Y92.230 Patient room in hospital as the place of occurrence of the external cause; Z68.41 Body mass index [BMI] 40.0-44.9, adult
CPT/HCPCS: 31645; 36415; 36558; 36600; 71045; 74018; 74176; 76937; 77001; 78452; 80048; 80053; 80061; 80069; 80076; 80162; 80202; 81001; 82248; 82330; 82728; 82803; 82948; 83036; 83540; 83550; 83605; 83690; 83735; 83880; 84100; 84132; 84134; 84145; 84478; 84484; 85007; 85008; 85018; 85025; 85610; 85730; 86705; 86706; 86803; 87040; 87070; 87081; 87340; 87811; 92508; 92616; 93005; 93017; 93306; 93312; 93970; 94002; 94003; 94640; 94660; 94760; 94799; 97110; 97161; 97530; 99291; A4314; A4333; A4615; A4620; A6209; A6212; A6213; A6258; A6402; A6449; A7015; A9270; A9500; A9900; C1751; C1752; C1769; C1894; C9113; E1594; G0257; G0378; J0171; J0280; J0282; J0360; J0692; J1160; J1170; J1200; J1644; J1815; J1940; J1956; J2060; J2212; J2250; J2543; J2704; J2765; J2785; J2930; J3010; J3370; J3480; J3490; J7030; J7040; J7050; Q4081

== ENCOUNTER 2022-01-01 11:16 | Emergency (ER) | payer MEDICAID ==
[~2022-01-01] VITALS: Ht 182.9 cm; Wt 158.1 kg
[~2022-01-01 11:16] MED LIST changes: +DAPA10TA PO; -DILT-36 PO; +DILT360C38 PO; +HYDR-4070 PO; -epiNEPHrine 0.1mg/ml 10ml syringe ONE; -etomidate 2mg/ml inj. ONE; -rocuronium 10mg/ml inj IV ONE; -sod chloride 0.9% 10ml flush syringe IV ONE
[2022-01-01 13:52] LABS: BASOPHILS % (AUTO) 0.7 % (0-1); EOSINOPHILS # (AUTO) 0.2 X10'3 (0-0.9); EOSINOPHILS % (AUTO) 5.4 % (0-6); HEMATOCRIT 24.8 % (42.0-52.0); LYMPHOCYTES # (AUTO) 0.7 X10'3 (1.1-4.8); LYMPHOCYTES % (AUTO) 16.6 % (21-51); MEAN CORPUSCULAR HEMOGLOBIN 26.5 PG (27.0-31.0); MEAN CORPUSCULAR HGB CONC 32.2 g/dL (33.0-36.5); MEAN CORPUSCULAR VOLUME 82.3 FL (78-98); MEAN PLATELET VOLUME 7.1 FL (7.4-10.4); MONOCYTES # (AUTO) 0.8 X10'3 (0-0.9); NEUTROPHILS # (AUTO) 2.5 X10'3 (1.8-7.7); NEUTROPHILS % (AUTO) 58.3 % (42-75); PLATELET COUNT 273 X10'3 (140-440); RED BLOOD COUNT 3.02 X10'6 (4.70-6.10); RED CELL DISTRIBUTION WIDTH 18.7 % (11.5-14.5); WHITE BLOOD COUNT 4.3 X10'3 (4.5-11.0)
[2022-01-01 13:56] LABS: ALANINE AMINOTRANSFERASE 13 U/L (12-78); ALBUMIN 2.7 G/DL (3.4-5.0); ALBUMIN/GLOBULIN RATIO 0.6 (1.1-1.5); ALKALINE PHOSPHATASE 60 IU/L (46-116); ANION GAP 11 (8-16); ASPARTATE AMINO TRANSFERASE 10 U/L (10-37); BILIRUBIN,TOTAL 0.2 MG/DL (0.1-1.0); BLOOD UREA NITROGEN 39 MG/DL (7-18); BUN/CREATININE RATIO 4.3 (5.4-32.0); CALCIUM 9.3 MG/DL (8.5-10.1); CHLORIDE 100 MMOL/L (99-107); CREATININE 9.13 MG/DL (0.60-1.10); GLUCOSE 111 MG/DL (70-104); POTASSIUM 4.2 MMOL/L (3.5-5.1); SODIUM 138 MMOL/L (135-145); TOTAL CARBON DIOXIDE 27.3 MMOL/L (24-32); TOTAL PROTEIN 7.3 G/DL (6.4-8.2); eGFR 8 ML/MIN
[2022-01-01 14:00] LABS: MAGNESIUM 1.9 MG/DL (1.5-2.4)
[2022-01-01 14:18] LABS: ANISOCYTOSIS 2+; PLATELET ESTIMATE NORMAL; TOTAL CELLS COUNTED 100
[2022-01-01 14:19] LABS: GIANT PLATELET FEW; LARGE PLATELETS FEW
[2022-01-01 14:20] LABS: POLYCHROMASIA FEW
--- NOTE | 2022-01-01 15:29 | NUR ---
pt requesting pain medication before being transported back. informed freddy of request. verbal order received for norco 10/325mg tab. order placed as recevied
[2022-01-01] MEDS: HYDROcodone/acetaminophen 10/325mg tab PO ONE (15:53)
[2022-01-01] MEDS: hyDRALAzine 10mg tablet PO SCH (15:54)
[2022-01-01] MEDS: hydrALAZINE 25 MG tablet PO ONE (16:05)
[2022-01-01 16:07] LABS: CLARITY,URINE CLOUDY (Clear); GLUCOSE, URINE 100 mg/dl (Neg); KETONES,URINE NEGATIVE (Neg); LEUKOCYTE ESTERASE ,URINE NEGATIVE (Neg); NITRITES, URINE NEGATIVE (Neg); OCCULT BLOOD,URINE TRACE-INTACT (Neg); PROTEIN,URINE 100 mg/dl (Neg); UROBILINOGEN,URINE 0.2 E.U/dL (0.2-1.0)
[2022-01-01 16:10] LABS: COLOR,URINE DARK YELLOW (Yellow); UA COLLECTION TYPE VOIDED
[2022-01-01 16:39] LABS: AMORPHOUS URATES 4+; HYALINE CASTS 0-3 /LPF (NEGATIVE)
[2022-01-01 16:40] LABS: TRANSITIONAL EPI CELLS,URINE FEW /HPF; WAXY CASTS,URINE 0-3 /LPF (NEGATIVE)
[2022-01-01 16:42] LABS: WBC CLUMPS,URINE FEW /HPF (NEGATIVE); WBC,URINE 0-4 /HPF (0-4)
[2022-01-01 16:43] LABS: BACTERIA,URINE FEW /HPF (Neg); MUCUS STRANDS FEW /LPF (Neg); RENAL CELLS, URINE MODERATE /HPF; SQUAMOUS EPITHELIAL CELL,UR FEW /LPF (FEW)
[2022-01-01 18:37] VITALS: BP 191/92
== END 2022-01-01 19:27 ==
LOC: ER 11:17
DX: K52.9 Noninfective gastroenteritis and colitis, unspecified (principal); R10.84 Generalized abdominal pain; R11.2 Nausea with vomiting, unspecified; I25.10 Atherosclerotic heart disease of native coronary artery without angina pectoris; E78.00 Pure hypercholesterolemia, unspecified; I10 Essential (primary) hypertension; J45.909 Unspecified asthma, uncomplicated; E11.9 Type 2 diabetes mellitus without complications; M19.90 Unspecified osteoarthritis, unspecified site; Z87.11 Personal history of peptic ulcer disease; Z90.49 Acquired absence of other specified parts of digestive tract; Z98.890 Other specified postprocedural states; Z88.6 Allergy status to analgesic agent; Z88.5 Allergy status to narcotic agent; Z88.8 Allergy status to other drugs, medicaments and biological substances; Z79.4 Long term (current) use of insulin; Z79.899 Other long term (current) drug therapy
CPT/HCPCS: 36415; 74176; 80053; 81001; 83605; 83735; 84145; 84484; 85007; 85025; 87088; 99285